=== PATIENT | female | born 1940 | race Caucasian/White ===

== ENCOUNTER 2019-08-13 13:37 | Outpatient (CLI) | payer MEDICARE, SELFPAY ==
--- NOTE | ~2019-08-13 | MM_ITS ---
EXAMINATION: MM screening [facility] BI w fco HISTORY: Screening mammogram TECHNIQUE: Craniocaudal and mediolateral oblique 3-D tomosynthesis images were obtained and synthetic 2-D images were generated. CAD analysis was submitted and interpreted. COMPARISON: 08/06/2018, 07/25/2017, 08/01/2016 BREAST PARENCHYMAL COMPOSITION: There are scattered areas of fibroglandular density. FINDINGS: There is no evidence of suspicious mass, calcification, or architectural distortion to sugg est malignancy in either breast. There has been no suspicious interval change. IMPRESSION: 1. No mammographic evidence of malignancy. 2. Recommend routine screening mammography while the patient remains in good health. BI-RADS Category 1: Negative Reviewed, dictated and finalized at location A. IMPRESSION: 1. No mammographic evidence of malignancy. 2. Recommend routine screening mammography while the patient remains in good he alth. BI-RADS Category 1: Negative
== END 2019-08-13 13:38 | disposition home or self-care (01) ==
LOC: ANHIMG 13:42
PROVIDERS: PCP Family Medicine; Visit Provider Family Medicine
DX: Z12.31 Encounter for screening mammogram for malignant neoplasm of breast (principal)
CPT/HCPCS: 77063; 77067

== ENCOUNTER 2020-05-05 07:24 | Outpatient (CLI) | payer MEDICARE, SELFPAY ==
--- NOTE | ~2020-05-05 | CT_ITS ---
EXAMINATION: CT chest abdomen pelvis w con EXAM DATE: 05/05/2020 08:01 INDICATION: Follicular lymphoma grade 3. TECHNIQUE: Spiral CT of the chest, abdomen and pelvis was performed following intravenous injection o f 100 mL Omnipaque 350. Axial, coronal and sagittal images were reviewed. Coronal maximum intensity pixel images of chest reviewed. The dose-length product (DLP) for this examination was 361.63 mGy-c m. The exposure was tailored according to patient size (auto mA exposure control), and iterative rec onstruction (ASIR) was used as additional dose reduction technique. Comparison is made to prior exami nation from 06/12/2019. FINDINGS: CHEST: There is no pleural-based left lower lobe nodule on image 56 measuring 3 x 6 mm. There are n o pleural or pericardial effusions. Tracheobronchial tree is patent. There is no mediastinal, hil ar or axillary lymphadenopathy. There is no pneumothorax. Heart normal in size. No evidence of coronary arterial calcification. There is a right-sided Chemo-Port. No central pulmonary emboli. ABDOMEN PELVIS: Ill-defined fat planes in the retroperitoneum, consistent with treated lymphoma. This appears unchanged compared to prior study. No retroperitoneal or pelvic lymphadenopathy. The liver, spleen, adrenal glands and pancreas are unremarkable. There are cholecystectomy clips. Portal and splenic veins are patent. Kidneys enhance symmetrically. Punctate left nephrolithiasis. There is no hydronephrosis. The uterus is unremarkable. The bladder is unremarkable. The appendix is not positively visualized. There is no pericecal inflammatory change to suggest appe ndicitis. The stomach and small bowel are unremarkable. There is expected amount of colonic stool. No free intraperitoneal gas. There are no osteoblastic or osteolytic lesions identified. IMPRESSION: 1. New pleural-based left lower lobe nodule. Attention to this on patient's follow-up for lymphoma a nd 6-12 months. 2. Stable retroperitoneal ill-defined soft tissue density consistent with treated lymphoma. 3. Punctate left nephrolithiasis. Reviewed, dictated and finalized at location A. O HANDLER IMPRESSION: 1. New pleural-based left lower lobe nodule. Attention to this on patient's fo llow-up for lymphoma and 6-12 months. 2. 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 3. Punctate left nephrolithiasis.
[2020-05-05 07:56] LABS: Estimated Glomerular Filt Rate 48
== END 2020-05-05 07:25 | disposition home or self-care (01) ==
LOC: ANHIMG 07:27
PROVIDERS: PCP Family Medicine; Visit Provider Internal Medicine Hematology & Oncology
DX: C82.23 Follicular lymphoma grade III, unspecified, intra-abdominal lymph nodes (principal); C82.22 Follicular lymphoma grade III, unspecified, intrathoracic lymph nodes; N20.0 Calculus of kidney
CPT/HCPCS: 36415; 71260; 74177; 80053; 83615; 85025; Q9967

== ENCOUNTER 2020-08-14 14:20 | Outpatient (CLI) | payer MEDICARE, SELFPAY ==
--- NOTE | ~2020-08-14 | MM_ITS ---
EXAMINATION: MM screening [facility] BI w fco HISTORY: Screening mammogram TECHNIQUE: Craniocaudal and mediolateral oblique 3-D tomosynthesis images were obtained and synthetic 2-D images were generated. CAD analysis was submitted and interpreted. COMPARISON: 08/13/2019, 08/2018, 08/02/2017 bilateral digital screening mammogram examinations BREAST PARENCHYMAL COMPOSITION: There are scattered areas of fibroglandular density. FINDINGS: Possible spiculated opacity in the upper outer right breast (MLO Tomosynthesis image 19/61) . Diagnostic right mammogram and right breast ultrasound examination are recommended. There is a biopsy marker adjacent to an approximately 4.5 mm opacity in the posterior lower outer lef t breast; history of benign biopsy. Otherwise there is is no evidence of suspicious mass, calcification, or architectural distortion to s uggest malignancy in either breast. There has been no other suspicious interval change. IMPRESSION: 1. Possible spiculated opacity, upper outer right breast 2. Diagnostic right mammogram and right breast ultrasound examination are recommended. BI-RADS Category 0: Incomplete: Needs additional imaging evaluation. Reviewed, dictated and finalized at location A. ER TENDER IMPRESSION: 1. Possible spiculated opacity, upper outer right breast 2. Diagnostic right mammogram and right breast ultrasound examination are recom mended. BI-RADS Category 0: Incomplete: Needs additional imaging evaluation.
== END 2020-08-14 14:21 | disposition home or self-care (01) ==
LOC: ANHIMG 14:22
PROVIDERS: PCP Family Medicine; Visit Provider Physician Assistant
DX: Z12.31 Encounter for screening mammogram for malignant neoplasm of breast (principal); R92.8 Other abnormal and inconclusive findings on diagnostic imaging of breast
CPT/HCPCS: 77063; 77067

== ENCOUNTER 2020-09-07 13:21 | Outpatient (CLI) | payer MEDICARE, SELFPAY ==
--- NOTE | ~2020-09-07 | MMUS_ITS ---
EXAMINATION: MM diagnostic mammo unilat RT, US breast RT limited HISTORY: Possible spiculated opacity reported in upper outer right breast on 08/14/2020 screening mamm ogram TECHNIQUE: Additional 3-D tomosynthesis images of the right breast were performed and synthetic 2-D i mages were generated. Rolled medial and rolled lateral craniocaudal views. CAD analysis was submitted and interpreted. High resolution right upper outer and lower-outer breast ultrasound was performed. COMPARISON: 08/14/2020 bilateral digital screening mammogram FINDINGS: MAMMOGRAPHIC FINDINGS: No suspicious mass, architectural distortion, malignant calcification, skin thickening or retraction is detected. ULTRASOUND: No suspicious mass or shadowing is detected. No cyst is identified. No other significant sonographic finding. IMPRESSION: 1. No mammographic evidence of malignancy 2. Routine annual mammographic screening is recommended. BI-RADS Category 1: Negative Reviewed, dictated and finalized at location A. IMPRESSION: 1. No mammographic evidence of malignancy 2. Routine annual mammographic screening is recommended. BI-RADS Category 1: Negative
== END 2020-09-07 13:22 | disposition home or self-care (01) ==
LOC: ANHIMG 13:23
PROVIDERS: PCP Family Medicine; Visit Provider Physician Assistant
DX: R92.8 Other abnormal and inconclusive findings on diagnostic imaging of breast (principal)
CPT/HCPCS: 76642; 77065

== ENCOUNTER 2020-11-11 07:26 | Outpatient (CLI) | payer MEDICARE, SELFPAY ==
--- NOTE | ~2020-11-11 | CT_ITS ---
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 Axial, coronal and sagittal images chest, abdomen and pelvis were reviewed. Coronal maximum intensity pixel images of chest reviewed. The dose-length product (DLP) for this ex amination was 437.48 mGy-cm. The exposure was tailored according to patient size (auto mA exposure c ontrol), and iterative reconstruction (ASIR) was used as additional dose reduction technique. Compari son is made to prior examination from 05/05/2020. FINDINGS: CHEST: Resolution of previously seen left lower lobe pleural-based nodular opacity. Mild emphysema. There are no pleural or pericardial effusions. Tracheobronchial tree is patent. There is no medi astinal, hilar or axillary lymphadenopathy. There is no pneumothorax. Heart normal in size. No evidence of coronary arterial calcification. There is a right-sided Chemo-Port. No central pulmonary emboli. ABDOMEN PELVIS: Ill-defined fat planes in the retroperitoneum, consistent with treated lymphoma. Incr eased number of visible but normal-sized mesenteric lymph nodes. These findings appear unchanged comp ared to prior study. No enlarged abdominal or pelvic lymphadenopathy. The liver, spleen, adrenal glands and pancreas are unremarkable. There are cholecystectomy clips. P ortal and splenic veins are patent. Kidneys enhance symmetrically. Punctate left nephrolithiasis. Th ere is no hydronephrosis. The uterus is unremarkable. The bladder is unremarkable. The appendix is not positively visualized. There is no pericecal inflammatory change to suggest appe ndicitis. The stomach and small bowel are unremarkable. There is expected amount of colonic stool. No free intraperitoneal gas. There are no osteoblastic or osteolytic lesions identified. IMPRESSION: 1. Resolution of pleural-based nodule previously seen. 2. Stable retroperitoneal ill-defined soft tissue density and small mesenteric lymph nodes consisten t with treated lymphoma. 3. Punctate left nephrolithiasis. Reviewed, dictated and finalized at location A. IMPRESSION: 1. Resolution of pleural-based nodule previously seen. 2. Stable retroperitoneal ill-defined soft tissue density and small mesenteric lymph nodes consistent with treated lymphoma. 3. Punctate left nephrolithiasis.
[2020-11-11 08:02] LABS: Estimated Glomerular Filt Rate 43
== END 2020-11-11 07:27 | disposition home or self-care (01) ==
PROVIDERS: PCP Family Medicine; Visit Provider Nurse Practitioner Adult Health
DX: C82.83 Other types of follicular lymphoma, intra-abdominal lymph nodes (principal); N20.0 Calculus of kidney
CPT/HCPCS: 36415; 71260; 74177; 83615; 85025; Q9967

== ENCOUNTER 2020-12-03 07:51 | Outpatient (CLI) | payer MEDICARE, SELFPAY ==
[2020-12-03 08:33] LABS: Anion Gap 8 mmol/L (8-16); Blood Urea Nitrogen 27 mg/dL (7-17); Calcium 9.5 mg/dL (8.4-10.2); Carbon Dioxide 28 mmol/L (22-30); Chloride 104 mmol/L (98-107); Estimated Glomerular Filt Rate 48; Glucose 95 mg/dL (65-105); Potassium 4.1 mmol/L (3.4-5.0); Sodium 140 mmol/L (137-145)
== END 2020-12-03 07:52 | disposition home or self-care (01) ==
PROVIDERS: Anesthesiology; PCP Family Medicine; Visit Provider Surgery
DX: Z01.818 Encounter for other preprocedural examination (principal); I10 Essential (primary) hypertension
CPT/HCPCS: 36415; 80048

== ENCOUNTER 2020-12-10 01:43 | Day surgery (SDC) | payer MEDICARE, SELFPAY ==
[2020-12-02 11:08] VITALS: BMI 22.1
[2020-12-10 12:05] VITALS: BP 126/73; PULSE 74; RESP 18; TEMP 36.2; O2SAT 100; BMI 22.3
--- NOTE | 2020-12-10 12:16 | WPDANESEPPF ---
Anes - Initial Pre Proc Eval Procedure: Operation Date: 12/10/20 13:00 Proposed Procedures p Removal Taylor Cath - Marycarmen Iyer MD Date/Time: 12/10/20 12:16 Surgeon: Marycarmen Iyer MD Pre Op Diagnosis: hx of lymphoma Patient Data Age: 80 Gender: F Height: 1.75 m Weight: 68.6 kg Last Vital Signs Temp 97.1 F L 12/10/20 12:05 Pulse 74 12/10/20 12:05 Resp 18 12/10/20 12:05 BP 126/73 12/10/20 12:05 Pulse Ox 100 12/10/20 12:05 Allergies Allergy/AdvReac Type Severity Reaction Status Date / Time aspirin Allergy Unknown low Verified 12/10/20 12:08 platelets Cephalosporins AdvReac Mild SEVERE Verified 12/10/20 12:08 DIARRHEA cefixime AdvReac Unknown Nausea Verified 12/10/20 12:08 Home Medications Medication Instructions Recorded Confirmed Type calcium carbonate-vitamin D3 1 tablet PO DAILY 03/26/19 12/10/20 History [Calcium 600 + D(3)] amitriptyline 25 mg tablet 25 mg PO HS #90 tablet 12/20/19 12/10/20 Rx alprazolam 0.25 mg tablet 0.25 mg PO TID PRN #90 tablet 07/29/20 12/10/20 Rx hydrochlorothiazide 12.5 mg tablet See Rx Instructions .ROUTE 10/06/20 12/10/20 Rx .COMPLEX #90 tablet fluticasone propionate 50 2 spray NASAL DAILY #15.8 ml 10/14/20 12/10/20 Rx mcg/actuation nasal spray,suspension lisinopril 20 mg tablet 10 mg PO DAILY #0 tablet 11/23/20 12/10/20 Rx ascorbic acid (vitamin C) 250 mg PO DAILY 12/02/20 12/10/20 History benzonatate 200 mg PO HS 12/02/20 12/10/20 History famotidine 40 mg PO DAILY 12/02/20 12/10/20 History Patient hx anesthesia problems: none Family hx anesthesia problems: none PMFSH Past Medical History Medical History (Updated 12/09/20 @ 10:36 by Hussain Escudero DO) Essential hypertension, benign Unspecified B-cell lymphoma, intra-abdominal lymph nodes 2018 Wears hearing aid Family History Family History Mother Cerebrovascular accident, Onset Age: 86 Father Family history of lung cancer, Onset Age: 65 Family history of coronary artery disease Other Family history of tuberculosis Hypertension Social History Social History Smoking status: Never smoker Alcohol intake: never Living arrangements: with friend(s) Spiritual care concerns: No Anes - Eval Final PreProcedure Day of Procedure 12/10/20 12:16 Patient weight: normal Heart: regular rate and rhythm Lungs: clear to auscultation Airway: Mallampati scale class II Neurological: alert and oriented Last oral intake: >/= 8 hours ASA classification: III Emergent: no Anesthetic plan: proceed Anesthesia type and monitoring: general GIVS and standard monitoring Informed Consent: The patient's anesthetic plan and its attendant risks and benefits were discussed with the patient/family/POA. Questions were solicited and answers provided to the satisfaction of the patient/family/POA.
[2020-12-10] MEDS: LACTATED RINGERS 1,000 ML 30 ML IV CONT (12:28)
--- NOTE | 2020-12-10 13:14 | PM.IMHP ---
H&P: HPI History of Present Illness Date/Time: 12/10/20 13:14 Pt is a 80 y/o F s/p treatment for lymphoma. Pt had R SCV VAD placed by Dr. Mckeon in 10/20. Pt reports last chemo treatment was in 04/22. Pt reports no issues c VAD. Pt has had flush every 2 mos s issue. Chief Complaint: lymphoma Review of Systems Review of Systems: All systems reviewed & are unremarkable except as noted in HPI and below PMFSH Past Medical History Medical History Essential hypertension, benign Unspecified B-cell lymphoma, intra-abdominal lymph nodes 2018 Wears hearing aid Family History Family History Mother Cerebrovascular accident, Onset Age: 86 Father Family history of lung cancer, Onset Age: 65 Family history of coronary artery disease Other Family history of tuberculosis Hypertension Social History Social History Smoking status: Never smoker Alcohol intake: never Living arrangements: with friend(s) Spiritual care concerns: No Meds Home Medications and Allergies Home Medications Medication Instructions Recorded Confirmed Type calcium carbonate-vitamin D3 1 tablet PO DAILY 03/26/19 12/10/20 History [Calcium 600 + D(3)] amitriptyline 25 mg tablet 25 mg PO HS #90 tablet 12/20/19 12/10/20 Rx alprazolam 0.25 mg tablet 0.25 mg PO TID PRN #90 tablet 07/29/20 12/10/20 Rx hydrochlorothiazide 12.5 mg tablet See Rx Instructions .ROUTE 10/06/20 12/10/20 Rx .COMPLEX #90 tablet fluticasone propionate 50 2 spray NASAL DAILY #15.8 ml 10/14/20 12/10/20 Rx mcg/actuation nasal spray,suspension lisinopril 20 mg tablet 10 mg PO DAILY #0 tablet 11/23/20 12/10/20 Rx ascorbic acid (vitamin C) 250 mg PO DAILY 12/02/20 12/10/20 History benzonatate 200 mg PO HS 12/02/20 12/10/20 History famotidine 40 mg PO DAILY 12/02/20 12/10/20 History Allergies Allergy/AdvReac Type Severity Reaction Status Date / Time aspirin Allergy Unknown low Verified 12/10/20 12:08 platelets Cephalosporins AdvReac Mild SEVERE Verified 12/10/20 12:08 DIARRHEA cefixime AdvReac Unknown Nausea Verified 12/10/20 12:08 Vital Signs Vital Signs - 24 hr 12/10/20 12:05 Temperature 36.2 C L Pulse Rate 74 Respiratory Rate 18 Blood Pressure 126/73 Pulse Oximetry 100 Exam Const: General: cooperative, comfortable and no acute distress Nutritional Appearance: average body habitus Orientation/consciousness: patient oriented x3 Limitations: no limitations Chest: Other: R SCV VAD - C/D/I Resp: Effort & Inspection: normal respiratory effort Auscultation: clear to auscultation bilaterally Cardio: Rate: regular rate Rhythm: regular rhythm Assessment and Plan Assessment and plan (1) Unspecified B-cell lymphoma, intra-abdominal lymph nodes: Code(s): C85.13 - Unspecified B-cell lymphoma, intra-abdominal lymph nodes Status: Acute Assessment and Plan: s/p chemo and clearance by oncology, will remove VAD
--- NOTE | 2020-12-10 13:17 | WPDHPUPDATE1 ---
History and Physical Update Update Date/Time: 12/10/20 13:17 History and Physical has been reviewed, including an updated exam of the patient. There are NO changes in the patient's condition. Risks, benefits, and alternatives have been discussed and questions answered. Patient agrees to proceed with procedure.
[2020-12-10] MEDS: ceFAZolin 2 GM/D5W 50 ML 2 GM/50 ML BAG IVPB (13:21)
[2020-12-10] MEDS: BUPIVACAINE/EPINEPHRINE 0.5% 10 ML VIAL 9 ML INFILTRATE (13:45)
[2020-12-10 13:53] VITALS: BP 123/67; PULSE 62; RESP 14; O2SAT 98
--- NOTE | 2020-12-10 13:56 | P.OP_ITS ---
Procedure Note - Detailed Date of Procedure 12/10/20 Pre-op Diagnosis hx of lymphoma Post-op Diagnosis same Procedure Performed Removal right subclavian venous access device Surgeon Marycarmen Iyer MD Anesthesia MAC and local Indications 80 y/o F c h/o lymphoma s/p treatment. Findings R SCV VAD Description of Procedure The patient was taken to the operating room placed in the supine position. After adequate induction of MAC anesthesia, the patient was prepped and draped in the normal sterile fashion. A time-out was then done to verify the patient's identity, as well as the procedure being performed. I began by localizing the previous incision line in the right chest and around the port itself. Once this was done, I made an incision through the old incision to the level of the port. I then bluntly dissected around the port, and located the 2 sutures holding the port in place. I then cut the 2 sutures and removed the port from the pocket. I was then able to remove the port and catheter in full. The catheter was noted in the right subclavian vein. I then held pressure at the level of the right subclavian vein for approximately 5 minutes. Hemostasis was noted after pressure was held. I then localized the pocket further and closed the subcutaneous tissue with 3 0 Vicryl suture. I then closed the skin with 4 O Monocryl subcuticular suture. Dermabond was then placed on the wound. The p atient tolerated the procedure well, was alert and awake in the operating room postoperatively, and will be transferred to the recovery in stable condition. Estimated Blood Loss 5 Drains No Packing No Pathology none sent Complications No immediate complications Condition stable Disposition PACU
[2020-12-10 14:20] VITALS: BP 131/68; PULSE 47
== END 2020-12-10 14:45 | disposition home or self-care (01) ==
PROVIDERS: PCP Family Medicine; Visit Provider Surgery
PROC: (CPT 36589; principal; 2020-12-10 13:00)
DX: Z45.2 Encounter for adjustment and management of vascular access device (principal); Z85.72 Personal history of non-Hodgkin lymphomas; I10 Essential (primary) hypertension
CPT/HCPCS: 36590; 36415; 80048; J0690; J2405; J2704; J3010; J7120

== ENCOUNTER 2021-02-25 12:38 | Outpatient (CLI) | payer MEDICARE, SELFPAY ==
--- NOTE | ~2021-02-25 | DEXA_ITS ---
Bone Density Report Name: Mana Singleton Age: 80 Sex: Female Ethnicity: White Date of : 1940 Indication: osteopenia; height loss; cancer; postmenopausal Referring Provider: Natasha Rosenberg Study: Bone densitometry was performed. Exam Date: February 25, 2021 Accession number: [id number] Bone Density: Region BMD T-score Z-score Classification AP Spine (L1, L4) 1.217 1.6 4.4 Normal Femoral Neck (Left) 0.740 -1.0 1.4 Normal Total Hip (Left) 0.803 -1.1 1.0 Osteopenia Total Hip Bilateral Avg 0.769 -1.4 0.8 Osteopenia Femoral Neck (Right) 0.663 -1.7 0.7 Osteopenia Total Hip (Right) 0.735 -1.7 0.5 Osteopenia World Health Organization criteria for BMD impression classify patients as: Normal (T-score at or above -1.0), Osteopenia (T-score between -1.0 and -2.5), or Osteoporosis (T-score at or below -2.5). 10-year Fracture Risk(1): Major Osteoporotic Fracture 14% Hip Fracture 3.7% Reported Risk Factors: [place] (), Neck BMD=0.663, BMI=23.5 (1) FRAX(R) Version 3.08. Fracture probability calculated for an untreated patient. Fracture probability may be lower if the patient has received treatment. Previous Exams: Region Exam Age BMD T-score BMD Change BMD Change Date g/cm2 vs Baseline vs Previous AP Spine(L1, L4) 02/25/2021 80 1.217 1.6 -0.210(-14.7%) -0.094(-7.1%)* 03/16/2017 76 1.310 2.5 -0.117(-8.2%)# 0.005(0.4%) 03/09/2015 74 1.305 2.4 -0.122(-8.6%)# 0.046(3.6%)# 08/08/2012 71 1.259 2.0 -0.168(-11.8%) -0.067(-5.1%)# 07/02/2010 69 1.327 2.6 -0.101(-7.1%)* -0.020(-1.5%) 09/18/2003 62 1.347 2.8 -0.081(-5.7%)* -0.081(-5.7%)* 06/26/2001 60 1.427 3.5 Total Hip(Left) 02/25/2021 80 0.803 -1.1 -0.166(-17.1%) -0.036(-4.3%)* 03/16/2017 76 0.839 -0.8 -0.130(-13.4%) 0.020(2.4%) 03/09/2015 74 0.819 -1.0 -0.150(-15.5%) 0.013(1.6%)# 08/08/2012 71 0.806 -1.1 -0.163(-16.8%) -0.008(-1.0%)# 07/02/2010 69 0.814 -1.0 -0.155(-16.0%) -0.139(-14.6%) 09/18/2003 62 0.953 0.1 -0.016(-1.6%) -0.016(-1.6%) 06/26/2001 60 0.969 0.2 Total Hip(Right) 02/25/2021 80 0.735 -1.7 -0.196(-21.0%) -0.026(-3.5%) 03/16/2017 76 0.761 -1.5 -0.169(-18.2%) -0.036(-4.6%)* 03/09/2015 74 0.798 -1.2 -0.133(-14.3%) 0.013(1.6%)# 08/08/2012 71 0.785 -1.3 -0.146(-15.7%) -0.020(-2.5%)# 07/02/2010 69 0.805 -1.1 -0.125(-13.5%) -0.116(-12.6%) 09/18/2003 62 0.921 -0.2 -0.010(-1.0%) -0.010(-1.0%) 06/26/2001 60 0.931 -0.1 *Denotes significance at
== END 2021-02-25 12:39 | disposition home or self-care (01) ==
PROVIDERS: PCP Family Medicine; Visit Provider Physician Assistant
DX: Z78.0 Asymptomatic menopausal state (principal); M85.89 Other specified disorders of bone density and structure, multiple sites
CPT/HCPCS: 77080

== ENCOUNTER 2021-05-11 07:04 | Outpatient (CLI) | payer MEDICARE, SELFPAY ==
[2021-05-11 08:09] LABS: Cholesterol 178 mg/dL (0-200); HDL Direct 73 mg/dL; Triglycerides 104 mg/dL (<150)
[2021-05-11 08:20] LABS: LDL Cholesterol Direct 63 mg/dL
[2021-05-11 11:31] LABS: Free T4 Free Thyroxine Reflex 1.02 ng/dL (0.78-2.19)
== END 2021-05-11 07:05 | disposition home or self-care (01) ==
PROVIDERS: PCP Family Medicine; Visit Provider Physician Assistant
DX: Z51.81 Encounter for therapeutic drug level monitoring (principal); Z79.899 Other long term (current) drug therapy; Z00.00 Encounter for general adult medical examination without abnormal findings
CPT/HCPCS: 36415; 80061; 84439; 84443; 84480

== ENCOUNTER 2021-07-21 10:11 | Outpatient (CLI) | payer MEDICARE, SELFPAY | END 2021-07-21 10:12 | disposition home or self-care (01) | PROVIDERS: PCP Family Medicine; Visit Provider Physician Assistant | DX: E03.8 Other specified hypothyroidism (principal); R79.89 Other specified abnormal findings of blood chemistry | CPT/HCPCS: 36415; 84443 ==

== ENCOUNTER 2021-09-22 11:41 | Outpatient (CLI) | payer MEDICARE, SELFPAY ==
--- NOTE | ~2021-09-22 | MM_ITS ---
EXAMINATION: MM screening [facility] BI w fco HISTORY: Screening mammogram TECHNIQUE: Craniocaudal and mediolateral oblique 3-D tomosynthesis images were obtained and synthetic 2-D images were generated. CAD analysis was submitted and interpreted. COMPARISON: 09/08/2019 diagnostic right mammogram and right breast Limited ultrasound 08/14/2020, 08/13/2019, 08/2018 bilateral screening mammogram examinations BREAST PARENCHYMAL COMPOSITION: There are scattered areas of fibroglandular density. FINDINGS: There is a biopsy marker on the left; history of previous benign left breast biopsy. No The re is no evidence of suspicious mass, calcification, or architectural distortion to suggest malignanc y in either breast. There has been no suspicious interval change. IMPRESSION: 1. No mammographic evidence of malignancy. 2. Recommend routine screening mammography in one year. BI-RADS Category 1: Negative Reviewed, dictated and finalized at location A.
== END 2021-09-22 11:42 | disposition home or self-care (01) ==
LOC: ANHIMG 11:42
PROVIDERS: PCP Family Medicine; Visit Provider Physician Assistant Medical
DX: Z12.31 Encounter for screening mammogram for malignant neoplasm of breast (principal)
CPT/HCPCS: 77063; 77067

== ENCOUNTER 2021-11-04 07:23 | Outpatient (CLI) | payer MEDICARE, SELFPAY ==
[2021-11-04 08:36] LABS: Alanine Aminotransferase 14 U/L (6-35); Albumin Level 4.2 g/dL (3.5-5.1); Alkaline Phosphatase 46 U/L (38-126); Anion Gap 4 mmol/L (8-16); Aspartate Amino Transferase 24 U/L (14-36); Bilirubin,Total 0.5 mg/dL (0.2-1.3); Blood Urea Nitrogen 18 mg/dL (7-17); Carbon Dioxide 31 mmol/L (22-30); Chloride 104 mmol/L (98-107); Cholesterol 172 mg/dL (0-200); Estimated Glomerular Filt Rate 53; Glucose 95 mg/dL (65-110); HDL Direct 59 mg/dL; Potassium 4.1 mmol/L (3.4-5.0); Sodium 139 mmol/L (137-145); Triglycerides 138 mg/dL (<150)
[2021-11-04 08:46] LABS: LDL Cholesterol Direct 56 mg/dL
[2021-11-04 13:08] LABS: Free T4 Free Thyroxine Reflex 1.04 ng/dL (0.78-2.19)
[2021-11-04 14:06] LABS: Total Triiodothyronine (T3) 1.42 NG/ML (0.97-1.69)
== END 2021-11-04 07:24 | disposition home or self-care (01) ==
LOC: ANHLAB 07:25
PROVIDERS: PCP Family Medicine; Visit Provider Physician Assistant
DX: E03.8 Other specified hypothyroidism (principal); Z79.899 Other long term (current) drug therapy
CPT/HCPCS: 36415; 80053; 80061; 84439; 84443; 84480

== ENCOUNTER 2022-09-19 07:14 | Outpatient (CLI) | payer MEDICARE, SELFPAY ==
[2022-09-19 07:39] LABS: Basophils Percent Auto 0.9 % (0.2-1.2); Eosinophils Absolute Auto 0.2 K/mm3 (0-0.3); Eosinophils Percent Auto 5.5 % (0-4.4); Hematocrit 36.6 % (37.0-47.0); Immature Granulocyte Absolute 0.01 K/mm3 (0.00-0.031); Immature Granulocyte Percent A 0.3 % (0-0.5); Lymphocytes Absolute Auto 0.79 K/mm3 (0.9-3.2); Mean Corpuscular HGB Conc 32.8 g/dl (32-36); Mean Corpuscular Hemoglobin 31.4 pg (26-34); Mean Corpuscular Volume 95.8 fl (80-100); Mean Platelet Volume 9.3 fl (7.4-10.4); Monocytes Absolute Auto 0.3 K/mm3 (0.1-0.6); Monocytes Percent Auto 8.2 % (2.6-8.5); Neutrophils Absolute Auto 2.1 K/mm3 (1.3-6.7); Neutrophils Percent Auto 62.1 % (45.5-73.1); Platelet Count Result 141 k/mm3 (150-375); Red Blood Count 3.82 M/mm3 (4.2-5.4); Red Cell Distribution Width 13.3 % (11.5-14.5); White Blood Count 3.4 K/mm3 (4.5-10.0)
[2022-09-19 07:56] LABS: Alanine Aminotransferase 19 U/L (6-35); Albumin Level 4.7 g/dL (3.5-5.1); Alkaline Phosphatase 55 U/L (38-126); Anion Gap 6 mmol/L (8-16); Aspartate Amino Transferase 23 U/L (14-36); Bilirubin,Total 0.8 mg/dL (0.2-1.3); Blood Urea Nitrogen 24 mg/dL (7-17); Calcium 9.3 mg/dL (8.4-10.2); Carbon Dioxide 33 mmol/L (22-30); Chloride 101 mmol/L (98-107); Cholesterol 163 mg/dL (0-200); Estimated Glomerular Filt Rate 53; Glucose 105 mg/dL (65-110); HDL Direct 63 mg/dL; Potassium 4.3 mmol/L (3.4-5.0); Sodium 140 mmol/L (137-145); Triglycerides 83 mg/dL (<150)
[2022-09-19 08:07] LABS: LDL Cholesterol Direct 64 mg/dL
[2022-09-19 09:01] LABS: Folic Acid 12.8 ng/mL (2.76->20)
[2022-09-19 10:11] LABS: Vitamin D 25 Hydroxy 39.2 ng/mL
== END 2022-09-19 07:15 | disposition home or self-care (01) ==
PROVIDERS: PCP Family Medicine; Visit Provider Physician Assistant
DX: K21.9 Gastro-esophageal reflux disease without esophagitis (principal); I10 Essential (primary) hypertension; Z79.899 Other long term (current) drug therapy
CPT/HCPCS: 36415; 80053; 80061; 82306; 82607; 82746; 84443; 85025

== ENCOUNTER 2022-10-19 13:38 | Outpatient (CLI) | payer MEDICARE, SELFPAY ==
--- NOTE | ~2022-10-19 | MM_ITS ---
EXAMINATION: MM screening jaylin BI w fco HISTORY: Screening mammogram TECHNIQUE: Craniocaudal and mediolateral oblique 3-D tomosynthesis images were obtained and synthetic 2-D images were generated. CAD analysis was submitted and interpreted. COMPARISON: 09/22/2021, 09/07/2020, 08/14/2020, 04/14/2020 BREAST PARENCHYMAL COMPOSITION: There are scattered areas of fibroglandular density. FINDINGS: No suspicious mass, calcification, or architectural distortion are identified in either lu ast to suggest malignancy. There has been no suspicious interval change. IMPRESSION: 1. No mammographic evidence of malignancy. 2. Recommend routine screening mammography while the patient remains in good health. BI-RADS Category 1: Negative Reviewed, dictated and finalized at location A. IMPRESSION: 1. No mammographic evidence of malignancy. 2. Recommend routine screening mammography while the patient remains in good he alth. BI-RADS Category 1: Negative
== END 2022-10-19 13:39 | disposition home or self-care (01) ==
LOC: ANHIMG 13:39
PROVIDERS: PCP Family Medicine; Visit Provider Family Medicine
DX: Z12.31 Encounter for screening mammogram for malignant neoplasm of breast (principal)
CPT/HCPCS: 77063; 77067

== ENCOUNTER 2023-08-01 14:23 | Outpatient (CLI) | payer MEDICARE, SELFPAY ==
--- NOTE | ~2023-08-01 | DEXA_ITS ---
Bone Density Report Name: CADEN YANCEY Age: 82 Sex: Female Ethnicity: White Date of : 1940 Indication: osteopenia; height loss; cancer; postmenopausal Referring Provider: WENDY MAGUIRE Study: Bone densitometry was performed. Exam Date: August 01, 2023 Accession number: [id number] Bone Density: Region BMD T-score Z-score Classification AP Spine(L1-L4) 1.371 2.9 5.8 Normal Femoral Neck (Left) 0.721 -1.2 1.4 Osteopenia Total Hip (Left) 0.793 -1.2 1.1 Osteopenia Femoral Neck (Right) 0.647 -1.8 0.7 Osteopenia Total Hip (Right) 0.749 -1.6 0.7 Osteopenia Total Hip Mean 0.771 -1.4 0.9 Osteopenia World Health Organization criteria for BMD impression classify patients as: Normal (T-score at or above -1.0), Osteopenia (T-score between -1.0 and -2.5), or Osteoporosis (T-score at or below -2.5). 10-year Fracture Risk(1): Major Osteoporotic Fracture 15% Hip Fracture 4.4% Reported Risk Factors: [place] (), Neck BMD=0.647, BMI=23.6 (1) FRAX(R) Version 3.08. Fracture probability calculated for an untreated patient. Fracture probability may be lower if the patient has received treatment. Previous Exams: Region Exam Age BMD T-score BMD Change BMD Change Date g/cm2 vs Baseline vs Previous AP Spine (L1-L4) 08/01/2023 82 1.371 2.9 0.085 (6.6%)# 0.015 (1.1%) 03/16/2017 76 1.356 2.8 0.070 (5.4%)# 0.016 (1.2%) 03/09/2015 74 1.340 2.7 0.054 (4.2%)# 0.054 (4.2%)# 08/08/2012 71 1.287 2.2 Total Hip(Left) 08/01/2023 82 0.793 -1.2 -0.013 (-1.6%) -0.010 (-1.2%) 02/25/2021 80 0.803 -1.1 -0.003 (-0.3%) -0.036 (-4.3%) 03/16/2017 76 0.839 -0.8 0.033 (4.1%)# 0.020 (2.4%) 03/09/2015 74 0.819 -1.0 0.013 (1.6%)# 0.013 (1.6%)# 08/08/2012 71 0.806 -1.1 Total Hip(Right) 08/01/2023 82 0.749 -1.6 -0.036 (-4.5%) 0.014 (1.9%) 02/25/2021 80 0.735 -1.7 -0.050 (-6.4%) -0.026 (-3.5%) 03/16/2017 76 0.761 -1.5 -0.023 (-3.0%) -0.036 (-4.6%) 03/09/2015 74 0.798 -1.2 0.013 (1.6%)# 0.013 (1.6%)# 08/08/2012 71 0.785 -1.3 *Denotes significance at 95% confidence level, LSC for AP Spine = 0.022 g/cm2, LSC for Total Hip = 0.027 g/cm2 # Denotes dissimilar scan types or analysis methods Clinical Information Provided by Patient: Has used the following medications: Vitamin D, Calcium Has the following medical conditions: Cancer Patient maximum height was 69 Menopause Age: 50 Drinks caffeinated beverages O
== END 2023-08-01 14:24 | disposition home or self-care (01) ==
PROVIDERS: PCP Family Medicine; Visit Provider Family Medicine
DX: M85.89 Other specified disorders of bone density and structure, multiple sites (principal); C85.13 Unspecified B-cell lymphoma, intra-abdominal lymph nodes; Z78.0 Asymptomatic menopausal state
CPT/HCPCS: 77080

== ENCOUNTER 2023-10-23 13:44 | Outpatient (CLI) | payer MEDICARE, SELFPAY ==
--- NOTE | ~2023-10-23 | MM_ITS ---
EXAMINATION: MM screening jaylin BI w fco HISTORY: Screening TECHNIQUE: Craniocaudal and mediolateral oblique 3-D tomosynthesis images were obtained and synthetic 2-D images were generated. CAD analysis was submitted and interpreted. COMPARISON: Comparison to multiple prior studies sequentially, with oldest reviewed study dated 09/2018. BREAST PARENCHYMAL COMPOSITION: Not dense: There are scattered areas of fibroglandular density. FINDINGS: There is no evidence of suspicious mass, calcification, or architectural distortion to sugg est malignancy in either breast. There has been no suspicious interval change. IMPRESSION: 1. No mammographic evidence of malignancy. 2. Recommend routine screening mammography in one year. BI-RADS Category 1: Negative Reviewed, dictated and finalized at location A.
== END 2023-10-23 13:45 | disposition home or self-care (01) ==
LOC: ANHIMG 13:46
PROVIDERS: PCP Family Medicine; Visit Provider Family Medicine
DX: Z12.31 Encounter for screening mammogram for malignant neoplasm of breast (principal)
CPT/HCPCS: 77063; 77067

== ENCOUNTER 2024-07-18 12:58 | Outpatient (CLI) | payer MEDICARE, SELFPAY ==
--- OUTSIDE RECORDS SUMMARY | 2024-07-18 13:04 | XMS_ITS | Patient Health Summary ---
Author Organization [facility] Address [address] [place] [address] Care Team Providers Care Product Manager Name Role Phone Unavailable Primary Care Provider Unavailabl e Note from [facility],non-owned Affiliates and Associated Physician Practices is amultiple site organization consisting of ambulatory clinics and hospital sitesin [place], [place], [place] and [place]. This disclosure is being madepursuant to the Care Everywhere program and may not contain all information available regarding this patient. Last updated 18.[facility] Social History Tobacco Use Types Packs/Day Years Used Date Smoking Tobacco: Never Assessed Sex and Gender Information Value Date Recorded Sex Assigned at Not on file Gender Identity Not on file Sexual Orientation Not on file Procedures * PATHOLOGY TISSUE(Performed 10/04/2017) * FLOW CYTOMETRY TISSUE PANEL(Performed 10/04/2017) Performed for Other nonspecific lymphadenitis Results * PATHOLOGY TISSUE (10/04/2017 1:55 PM CDT) Case Report Surgical Pathology Report Case: [id number] Authorizing Provider: Ryder Yi MD Collected: 10/04/2017 01:55 PM Pathologist: Sharon Calvo MD Received: 10/05/2017 01:56 PM Specimen: Soft Tissue Mass, OSC: [id number] 10/06/2017 10:26 AM [facility] Final Diagnosis Retroperitoneal mass, needle core biopsy (OSC [id number], 10/04/17): - Follicular lymphoma, as sampled. - See interpretation. 10/06/2017 10:26 AM [facility] Microscopic Description and Comment Review of the specimen reveals minute fragments of soft tissue infiltrated by small mature lymphocytes arranged in a vaguely nodular pattern. The lymphoid cells are infiltrating skeletal muscle and adipose tissue. There is no significant large cell population identified. No necrosis is seen. A deeper H&E-stained level prepared in the [facility] Department of Pathology confirms these findings. Immunohistochemistry is performed in the [facility] Department of Pathology with appropriately reactive controls to further characterize the immunoarchitecture. The majority of lymphocytes are positive for CD20. The MC59-zkjgkqgg B-lymphocytes are also positive for CD10 and BCL2. CD3 highlights background scattered T-lymphocytes. CD21 shows small follicular dendritic cell meshworks in the B-cell nodules. Concurrent flow cytometry ([id number]) shows a SL16-fqclrzei mature B-cell lymphoma. In summary, the retroperitoneal mass is involved by a tumor best classified as follicular lymphoma. In the needle core biopsy there is no significant centroblast population identified; however, in the context of a larger mass, an associated higher grade lymphoma cannot be excluded. Clinical correlation is required. SALU/XAVI/xavi 10/06/2017 10:26 AM [facility] Clinical History The patient is a 76 year old woman with low back pain. On imaging, a soft tissue mass was detected in the retroperitoneum. 10/06/2017 10:26 AM [facility] Materials Received Received are 2 slides and 1 block labeled as F erica, Mana and [id number] along with a copy of the outside pathology report. The materials originate from [facility], [address] [place] [address]. All materials are returned to the referring institution, along with a copy of our final report. 10/06/2017 10:26 AM [facility] Disclaimer The performance characteristics of all immunohistochemical and indirect immunofluorescence stains (if any) cited in this report were determined by the Histopathology Laboratory of [facility]. Some of these tests were developed by our own laboratory and have not been cleared or approved by the US Food and Drug Administration. The FDA does not require this test to go through premarket FDA review. These tests are used for clinical purposes. They should not be regarded as investigational or for research. This laboratory is certified under the Clinical Laboratory Improvement Amendments (CLIA) as qualified to perform high complexity clinical laboratory testing. This case has been personally reviewed and interpreted by the attending (teaching) pathologist. 10/06/2017 10:26 AM [facility] Synoptic Report NON-HODGKIN LYMPHOMA/LYMPHOID NEOPLASMS: Biopsy, Resection (NHL - All Specimens) SPECIMEN Specimen: Other (specify): Retroperitoneal mass Procedure: Biopsy Tumor Site: Other tissue(s) or organ(s): Retroperitoneum TUMOR Histologic Type (Based on the 2008 WHO Classification): Mature B-Cell Neoplasms Histologic Type (Based on the 2008 WHO Classification): Follicular lymphoma SPECIAL STUDIES Immunophenotyping (Flow Cytometry and / or Immunohistochemistry) : Performed Specify Method(s) and Results: Immunohistochemistry: Tumor cells are positive for CD20, CD10, and BCL-2. 10/06/2017 10:26 AM CDT [facility] Embedded Images 10/06/2017 10:26 AM CDT [facility] Pathology/Cytolo gy SOFT TISSUE MASS / Unknown 10/04/2017 1:55 PM CDT 10/05/2017 1:56 PM CDT Ryder Yi MD LAB - PATHOLOGY/CYTO LOGY ORDERABLES [facility] [address] [phone] * FLOW CYTOMETRY TISSUE PANEL (10/04/2017 11:57 AM CDT) Case Report Flow Cytometry Case: [id number] Authorizing Provider: Ryder Yi MD Collected: 10/04/2017 11:57 AM Pathologist: Sharon Calvo MD Received: 10/06/2017 09:05 AM Specimen: Peritoneal Biopsy, RETROPERITONEAL MASS 10/06/2017 10:01 AM [facility] Final Diagnosis Retroperitoneal mass, Flow cytometric immunophenotypic analysis: - [id number]-[id number] mature B-cell lymphoma. - Paucicellular and reduced viability specimen - See interpretation. 10/06/2017 10:01 AM [facility] Flow Cytometry Interpretation The retroperitoneal mass biopsy specimen is paucicellular and has a reduced viability of 50%. Most of the cells are within the lymphocyte gate (80%). Within this region, there is a monoclonal B-cell population identified expressing CD10, CD19, CD20, CD45, and surface kappa light chains but not CD5, CD23, or CD34. By CD19, this population comprises 44% of all events. A cytospin prepared from the flow cytometry specimen is reviewed for quality management nurse purposes. The retroperitoneal biopsy is paucicellular and has reduced viability but shows involvement by a EF10-sdxknbjw mature B-cell lymphoma. Correlation with clinical findings and the concurrent tissue biopsy ([facility]; [id number]) is required. These findings were discussed with Dr. Yamileth Yi at 1:55 p.m. On 10/05/[address] Dmitry Tapia. KR/YARN WINDER/svp chief marketing officer 10/06/2017 10:01 AM [facility] Flow Cytometry Results Differential Result Comment Flow Cell Count /uL 320 Total Viability % 50.0 Lymphocytes % 80 Dim CD45 Region % 6 Monocytes % 4 Granulocytes % 5 10/06/2017 10:01 AM [facility] Reason for test Other nonspecific lymphadenitis 10/06/2017 10:01 AM [facility] Client Specimen ID # [id number] 10/06/2017 10:01 AM [facility] Number of markers 16 were performed. A Flow CD3 A Flow CD10 A Flow CD20 A Flow CD23 A Flow CD2 A Flow CD4 A Flow CD1a A Flow CD5 A Flow CD19 A Flow CD34 A Flow CD45 A Flow CD7 A Flow CD8 A Flow CD30 A Loda+CD19+ A Lambda+CD19+ 10/06/2017 10:01 AM [facility] Disclaimer Test performed at [facility], [address] [place] [address], [address]. *The established laboratory minimum viability is 70%. Values below the minimum may result in the failure to find an abnormal population of cells. This test was developed and its performance characteristics determined by the Flow Cytometry Laboratory. It has not been cleared by the [place] Food and Drug Administration (FDA). The FDA has determined that such clearance or approval is not necessary. This test is used for clinical purposes. It should not be regarded as investigational or for research. This laboratory is regulated under the Clinical Laboratory Improvement Amendments of 1998 (CLIA) as a qualified to perform high complexity clinical testing. 10/06/2017 10:01 AM [facility] Embedded Images 10:01 AM [facility] Pathology/Cytolo gy PERITONEAL BIOPSY SPECIMEN / Unknown 10/04/2017 11:57 AM CDT 10/06/2017 9:05 AM CDT Ryder Yi MD LAB - PATHOLOGY/CYTO LOGY ORDERABLES [facility] [address] [phone]
--- OUTSIDE RECORDS SUMMARY | 2024-07-18 13:04 | XMS_ITS ---
Author Organization [facility] Address [address] [place] [address] Care Team Providers Care Ice Cream Maker Name Role Phone zzzzMigration, zzzzProvider Unavailable Unav ailable REASON FOR VISIT EMR-Woody Encounters Encounter Location Date Provider Diagnosis [facility] [address] [place] [address] 03/25/2023 zzzzProvider zzzzMigration Plan Of Treatment No Information Progress Notes * Mana YANCEY MDOB: [birth year] (83 yo F)Acc No.[id number]:03/25/2023 Patient: Finn FELDMANMana :1940 A ge:82 Y S ex:Female Address:[address] [place] [id number] Subjective: * Chief Complaints: * E MR-Woody * Medical History: * Surgical History: * Hospitalization/Major Diagno stic Procedure: * Medications: Objective: * Vitals: * Physical Examination: Assessment: Plan: * Treatment: * Procedure Codes: * * Date:
--- OUTSIDE RECORDS SUMMARY | 2024-07-18 13:04 | XMS_ITS | Encounter Summary ---
Author Organization [facility] Address [address] [place] [address] Care Team Providers Care Search Advertising Strategist Name Role Phone Unavailable Primary Care Provider Unavailabl e Encounter Details Date Type Department Care Team (Latest Contact Info) Description 10/06/2017 Lab Requisition [facility] Care Pathology Lab [address] [place] [address] Ryder Yi MD [address] [place] [address] Other nonspecific lymphadenitis Social History Tobacco Use Types Packs/Day Years Used Date Smoking Tobacco: Never Assessed Sex and Gender Information Value Date Recorded Sex Assigned at Not on file Gender Identity Not on file Sexual Orientation Not on file documented as of this encounter Plan of Treatment Not on file documented as of this encounter Procedures Procedure Name Priority Date/Time Associated Diagnosis Comments FLOW CYTOMETRY TISSUE PANEL Routine 10/04/2017 11:57 AM CDT Other nonspecific lymphadenitis documented in this encounter Results * FLOW CYTOMETRY TISSUE PANEL (10/04/2017 11:57 AM CDT) Case Report Flow Cytometry Case: [id number] Authorizing Provider: Ryder Yi MD Collected: 10/04/2017 11:57 AM Pathologist: Sharon Calvo MD Received: 10/06/2017 09:05 AM Specimen: Peritoneal Biopsy, RETROPERITONEAL MASS 10/06/2017 10:01 AM CDT [facility] Final Diagnosis Retroperitoneal mass, Flow cytometric immunophenotypic analysis: - [id number] mature B-cell lymphoma. - Paucicellular and reduced viability specimen - See interpretation. 10/06/2017 10:01 AM CDT [facility] Flow Cytometry Interpretation The retroperitoneal [...] flow cytometry specimen is reviewed for quality process auditor purposes. The retroperitoneal biopsy is paucicellular and has reduced viability but shows involvement by a JK11-sfbngpwo mature B-cell lymphoma. Correlation with clinical findings and the concurrent tissue biopsy ([facility]; [id number]) is required. These findings were discussed with Dr. Yamileth Yi at 1:55 p.m. On 10/05/[address] Dmitry Tapia. SAUL/XAVI/xavi 10/06/2017 10:01 AM [facility] Flow Cytometry Results Differential Result Comment Flow Cell Count /uL 320 Total Viability % 50.0 Lymphocytes % 80 Dim CD45 Region % 6 Monocytes % 4 Granulocytes % 5 10/06/2017 10:01 AM [facility] Reason for test Other nonspecific lymphadenitis 10/06/2017 10:01 AM [facility] Client Specimen ID # [id number] 10/06/2017 10:01 AM [facility] Number of markers 16 were performed. A Flow CD3 A Flow CD10 A Flow CD20 A Flow CD23 A Flow CD2 A Flow CD4 A Flow CD1a A Flow CD5 A Flow CD19 A Flow CD34 A Flow CD45 A Flow CD7 A Flow CD8 A Flow CD30 A [place]+CD19+ A Lambda+CD19+ 10/06/2017 10:01 AM [facility] Disclaimer Test performed at [facility], [address] [place] [address], [address]. *The established laboratory minimum viability is 70%. [...] high complexity clinical testing. 10/06/2017 10:01 AM CDT [facility] Embedded Images 10:01 AM CDT [facility] Pathology/Cytolo gy PERITONEAL BIOPSY SPECIMEN / Unknown 10/04/2017 11:57 AM CDT 10/06/2017 9:05 AM CDT Ryder Yi MD LAB - PATHOLOGY/CYTO LOGY ORDERABLES Performing Organization Address City/State/[facility] Co de Phone Number [facility] [address] [phone] documented in this encounter Visit Diagnoses Diagnosis Other nonspecific lymphadenitis documented in this encounter
--- OUTSIDE RECORDS SUMMARY | 2024-07-18 13:04 | XMS_ITS | Clinical Summary ---
Author Organization [facility] Address [address] [place] [address] Care Team Providers Care Layout Operator Name Role Phone Unavailable Primary Care Provider Unavailabl e Source Comments [facility],non-owned Affiliates and Associated Physician Practices is amultiple site organization consisting of ambulatory clinics and hospital sitesin [place], [place] and [place]. This disclosure is being madepursuant to the Care Everywhere program and may not contain all information available regarding this patient. Last updated 18.[facility] Social History Tobacco Use Types Packs/Day Years Used Date Smoking Tobacco: Never Assessed Sex and Gender Information Value Date Recorded Sex Assigned at Not on file Gender Identity Not on file Sexual Orientation Not on file Plan of Treatment Health Maintenance Due Date Last Done Comments BONE DENSITY TESTING 1940 DTAP/TDAP/TD VACCINES (1 - Tdap) 1957 PNEUMOCOCCAL VACCINE 50+ (1 of 1 - PCV) 1988 ZOSTER VACCINE (1 of 2) 1988 Respiratory Syncytial Virus (RSV) Vaccine Pt: or over 60 yrs (1 - 1-dose 75+ series) 2013 COVID-19 VACCINE (2023-2 5 season) 2024 INFLUENZA VACCINE (#1) 2024 DEPRESSION SCREENING 06/05/2024 MEDICARE AWV CALENDAR YEAR 2024 HEPATITIS B VACCINE Aged Out No longe r eligible based on patient's age to complete this topic HIB VACCINE Aged Out No longer eligi ble based on patient's age to complete this topic HPV VACCINE Aged Out No longer eligi ble based on patient's age to complete this topic MENINGOCOCCAL (Group B) VACCINE Aged Out No longer eligible based on patient's age to complete this topic MENINGOCOCCAL VACCINE Aged Out No milena ivelisse eligible based on patient's age to complete this topic
--- OUTSIDE RECORDS SUMMARY | 2024-07-18 13:04 | XMS_ITS ---
Author Organization [facility] Address [address] [place] [address] Care Team Providers Care Warp Tying Machine Tender Name Role Phone zzzzMigration, zzzzProvider Unavailable Unav ailable REASON FOR VISIT EMR-Woody Encounters Encounter Location Date Provider Diagnosis [facility] [address] [place] [address] 03/26/2023 zzzzProvider zzzzMigration Plan Of Treatment No Information Progress Notes * Mana YANCEY MDOB: [birth year] (83 yo F)Acc No.[id number]:03/26/2023 Patient: Finn FELDMANMana :1940 A ge:82 Y S ex:Female Address:[address] [place] [address] Subjective: * Chief Complaints: * E MR-Woody * Medical History: * Surgical History: * Hospitalization/Major Diagno stic Procedure: * Medications: Objective: * Vitals: * Physical Examination: Assessment: Plan: * Treatment: * Procedure Codes: * * Date:
--- OUTSIDE RECORDS SUMMARY | 2024-07-18 13:04 | XMS_ITS | Encounter Summary ---
Author Organization [facility] [employer] Address [address] [place] [address] Care Team Providers Care Marketing Communications Manager Name Role Phone Geovanni Hoffman MD Primary Care Provider [phone] Encounter Details Date Type Department Care Team ([facility] Contact Info) Description 07/18/2024 Orders Only [facility]3] Oncology and [facility] [address] [place] [address] Linden Diaz MD [address] [place] [address] [employer] [address] [place] [phone] Follicular lymphoma, unspecified follicular lymphoma type, unspecified body region (CMS/HCC) (Primary Dx) Social History Tobacco Use Types Packs/Day Years Used Date Smoking Tobacco: Never Smokeless Tobacco: Never Alcohol Use Standard Drinks/Week Comments No 0 (1 standard drink = 0.6 oz pur e alcohol) Comments No Sex and Gender Information Value Date Recorded Sex Assigned at Not on file Legal Sex Female 3:08 PM CDT Gender Identity Not on file Sexual Orientation Not on file documented as of this encounter Plan of Treatment Upcoming Encounters Date Type Department Care Team (Late st Contact Info) Description 07/22/2024 2:30 PM PROJECT MANAGEMENT SPECIALIST Office Visit [facility]3] Oncology and Hematology [facility] [address] [place] [address] Linden Diaz MD [address] [place] [address] [employer] [address] [place] [phone] Scheduled Orders Name Type Priority Associated Diagnoses Orde r Schedule CBC WITH DIFFERENTIAL Lab Routine Follicular lymphoma, unspecified follicular lymphoma type, unspecified body region (CMS/HCC) Expected: 07/18/2024, Expires: 07/18/2025 COMPREHENSIVE METABOLIC PANEL Lab Routine Follicular lymphoma, unspecified follicular lymphoma type, unspecified body region (CMS/HCC) Expected: 07/18/2024, Expires: 07/18/2025 LACTATE DEHYDROGENASE Lab Routine Follicular lymphoma, unspecified follicular lymphoma type, unspecified body region (CMS/HCC) Expected: 07/18/2024, Expires: 07/18/2025 documented as of this encounter Visit Diagnoses Diagnosis Follicular lymphoma, unspecified follicular lymphoma type, unspecified body region (CMS/HCC)- Primary documented in this encounter Care Teams Marketing Communications Manager Relationship Specialty Start Date End Date Geovanni Hoffman MD PCP - General Family Practice 10/23/17 documented as of this encounter
--- OUTSIDE RECORDS SUMMARY | 2024-07-18 13:04 | XMS_ITS | Continuity of Care Document ---
Author Organization [facility] Address [address] [place] [address] Phone Care Team Providers Care Dean Of Women Name Role Phone Jules Soto MD, MD Unavailable Unavailable Procedures Procedure Date AFTER CATARACT [...] Date Provider Providers Copied on Encounter Ophthalmology [facility], [address] [place] [address], [id number], tel:[phone] [address] [place] [address] No Information 4 Charles Vicente. [address], [address], [place], [place], [id number] , [place]. tel:[phone] Referring Provider: Jules Soto MD P, [address], [place], [place], [id number]. tel:[phone] [facility], [address] [place] [address], [id number], tel:[phone] [address] [place] [address] No Information 4 Charles Vicente. [address], [address] [place] [address], [id number] , [place]. tel:[phone] Referring Provider: Jules Murray, [address], [place], [place], [id number]. tel:[phone] [facility], [address] [place] [address], [id number], [place] tel:[phone] [facility] No Information 4 Charles Vicente. [address], [address], [place], [place], [id number] , [place]. tel:[phone] Referring Provider: Jules Murray, [address], [place], [place], [address]. tel:[phone] [facility], [address] [place] [address], [id number], [place] tel:[phone] [facility] No Information 4 Charles Vicente. [address], [address], [place], [place], [id number] , [place]. tel:[phone] Referring Provider: Jules Soto MD P, [address], [place], [place], [address]. tel:[phone] [facility], [address] [place] [address], [place], [place], [id number], [place] tel:[phone] [facility] No Information 3 Charles Vicente. [address], [address], [place], [place], [id number] , [place]. tel:[phone] Referring Provider: Jules Murray, [address], [place], [place], [address]. tel:[phone] OFFICE/OUTPA TIENT VISIT, [facility], [address] [place] [address], [place], [place], [id number], [place] tel:[phone] [facility] No Information 3 Charles Vicente. [address], [place], [place], [address] , [place]. tel:[phone] Referring Provider: Jules Soto MD P, [address], [place], [place], [id number]. tel:[phone] Family History Family Member Type Diagnosis Age At Onset No Information Payers Payer name Insurance type Covered libertarian ID Authoriza tion(s) No Information Social History Type Description Quantity Date Captured Comments Sex Female Smoking Status No Information Chief Complaint And Reason For Visit No Information Plan Of Treatment Date Type Action Status No Information History Of Present Illness Encounter Date Complaint History Of Prese nt Illness No Information Instructions Date Instruction Additional Infor mation No Information Assessments Type Assessment Date No Information
--- OUTSIDE RECORDS SUMMARY | 2024-07-18 13:04 | XMS_ITS | Clinical Summary ---
Author Organization [facility] Address [address] [address] Care Team Providers Care Data Warehouse Specialist Name Role Phone Geovanni Hoffman MD Primary Care Provider [phone] Allergies No known active allergies Medications ALPRAZolam (XANAX) 0.25 mg tablet Take 0.25 mg by mouth 3 times daily as needed . 10/09/2017 Active amitriptyline (ELAVIL) 25 mg tablet Take 25 mg by mouth daily at bedtime . 09/25/2017 Active calcium carbonate + vitamin D (CALTRATE+D) 600 mg(1,500mg) -400 unit Tablet Take 1 Tablet by mouth daily . Active lidocaine-prilo arlette (EMLA) 2.5-2.5 % Cream Apply to port site 30-60 mins prior to use. 30 Gram 3 10/27/2017 Active lisinopril (PRINIVIL) 20 mg tablet Take 20 mg by mouth daily . 11/28/2017 Active raNITIdine (ZANTAC) 300 mg tablet daily at bedtime . 05/31/2018 Active benzonatate (TESSALON) 200 mg capsule Take 200 mg by mouth 3 times daily. Active naproxen sodium (ALEVE ORAL) Take by mouth. Active hydroCHLOROthia zide (HYDRODIURIL) 12.5 mg tablet 11/04/2019 Acti ve fluconazole (DIFLUCAN) 10 mg/mL pediatric suspension Take by mouth every 24 hours. Active famotidine (PEPCID) 40 mg tablet Take 40 mg by mouth 2 times daily. 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 Follicular lymphoma 10/23/2017 Encounters Date Type Department Care Team Description 07/18/2024 Orders Only [facility] Oncology and Hematology - Darius [address] [place] [address] Linden Diaz MD Follicular lymphoma, unspecified follicular lymphoma type, unspecified body region (CMS/HCC) (Primary Dx) 07/02/2024 External Device Data STL ABSTRACTION Provider, Abstract from Last 3 Months Family History Medical History Relation Name Comments Lung Cancer Father Heart Disease Maternal Grandfather Heart Disease Mother Stroke Mother Relation Name Status Comments Father Maternal Grandfather Mother Social History Tobacco Use Types Packs/Day Years Used Date Smoking Tobacco: Never Smokeless Tobacco: Never Tobacco Cessation:Counseling Given: Not Answered Alcohol Use Standard Drinks/Week Comments No 0 (1 standard drink = 0.6 oz pur e alcohol) Comments No Sex and Gender Information Value Date Recorded Sex Assigned at Not on file Legal Sex Female 3:08 PM CDT Gender Identity Not on file Sexual Orientation Not on file Last Filed Vital Signs Vital Sign Reading Time Taken Comments Blood Pressure 188/99 07/20/2023 2:12 PM CUSTOMER DATA TECHNICIAN Pulse 65 07/20/2023 2:10 PM CUSTOMER DATA TECHNICIAN Temperature 36 C (96.8 F) 07/20/2023 2:10 PM CUSTOMER DATA TECHNICIAN Respiratory Rate 14 07/20/2023 2:10 PM CUSTOMER DATA TECHNICIAN Oxygen Saturation 99% 07/20/2022 2:33 PM CUSTOMER DATA TECHNICIAN Inhaled Oxygen Concentration - - Weight 70.3 kg (155 lb) 07/20/2023 2:10 PM CUSTOMER DATA TECHNICIAN Height 174 cm (5' 8.5 ) 05/19/2021 2:00 PM CUSTOMER DATA TECHNICIAN Body Mass Index 23.22 05/19/2021 2:00 PM CUSTOMER DATA TECHNICIAN Plan of Treatment Upcoming Encounters Date Type Department Care Team (Late st Contact Info) Description 07/22/2024 2:30 PM CUSTOMER DATA TECHNICIAN Office Visit [facility] [place] Oncology and Hematology Darius [address] [place] [address] Linden Diaz MD [address] [facility] [address] [place] [address] Health Maintenance Due Date Last Done Comments DTAP/TDAP/TD VACCINES (1 - Tdap) 1957 PNEUMOCOCCAL VACCINE 65+ YEARS (1 of 2 - PCV) 11/02/18 56 ZOSTER VACCINE (1 of 2) 1957 OSTEOPOROSIS SCREENING 11/03/2003 RSV VACCINE (60+ or ) (1 - 1-dose 75+ series) 2013 INFLUENZA VACCINE (#1) 2024 Medicare [place] ([place] Prev entative Visit/Annual Wellness Visit 06/05/2024 Insurance [facility] Care Teams Data Warehouse Specialist Relationship Specialty Start Date End Date Geovanni Hoffman MD PCP - General Family Practice 10/23/17
--- OUTSIDE RECORDS SUMMARY | 2024-07-18 13:05 | XMS_ITS | Patient Health Record ---
Author Organization [facility] Address [address] [facility] [address] [place] [address] Support Name Relationship Address Phone Mana Singleton Guarantor Unknown [phone] Reason For Referral No Information Plan Of Treatment No Information
--- OUTSIDE RECORDS SUMMARY | 2024-07-18 13:05 | XMS_ITS | Encounter Summary ---
Author Organization [facility] Address [address] [place] [address] Care Team Providers Care Infrastructure Design Engineer Name Role Phone Geovanni Hoffman MD Primary Care Provider [phone]- [phone] Encounter Details Date Type Department Care Team ([facility] Contact Info) Description 03/28/2018 Chart Note [facility] Radiation Therapy [address] [place] [address] [place] [address] [place] [address] Social History Tobacco Use Types Packs/Day Years [...] Encounters Date Type Department Care Team (Late Contact Info) Description 07/22/2024 2:30 PM CLERK SUPERVISOR Office Visit [facility] Oncology and Hematology - Darius [address] [facility] [address] [place] [address] Linden iDaz MD [address] [facility] [address] [place] [address] documented as of this encounter Visit Diagnoses Not on filedocumented in this encounter Care Teams Infrastructure Design Engineer Relationship Specialty Start Date End Date Geovanni Hoffman MD PCP - General Family Practice 10/23/17 documented as of this encounter
--- OUTSIDE RECORDS SUMMARY | 2024-07-18 13:05 | XMS_ITS | Encounter Summary ---
Author Organization [facility] Address [address] [place] [address] Care Team Providers Care Surgical Instrument Repair Specialist Name Role Phone Unavailable Primary Care Provider Unavailabl e Encounter Details Date Type Department Care Team (Late st Contact Info) Description 10/05/2017 Lab Requisition [facility] [address] [place] [address] Ryder Yi MD [address] [place] [address] Social History Tobacco Use Types Packs/Day Years Used Date Smoking Tobacco: Never Assessed Sex and Gender Information Value Date Recorded Sex Assigned at Not on file Gender Identity Not on file Sexual Orientation Not on file documented as of this encounter Plan of Treatment Not on file documented as of this encounter Procedures Procedure Name Priority Date/Time Associated Diagnosis Comments PATHOLOGY TISSUE Routine 10/04/2017 1:55 PM CDT documented in this encounter Results * PATHOLOGY TISSUE (10/04/2017 1:55 PM CDT) Case Report Surgical Pathology Report Case: [id number] Authorizing Provider: Ryder Yi MD Collected: 10/04/2017 01:55 PM Pathologist: Sharon Calvo MD Received: 10/05/2017 01:56 PM Specimen: Soft Tissue Mass, OSC: [id number] 10/06/2017 10:26 AM CDT [facility] Final Diagnosis Retroperitoneal mass, needle core biopsy (OSC [id number], 10/04/17): - Follicular lymphoma, as sampled. - See interpretation. 10/06/2017 10:26 AM CDT [facility] Microscopic Description and Comment Review of the specimen reveals minute fragments of soft tissue infiltrated by small mature lymphocytes arranged in a vaguely nodular pattern. The lymphoid cells are infiltrating skeletal muscle and adipose tissue. There is no significant large cell population identified. No necrosis is seen. A deeper H&E-stained level prepared in the [facility] Department of Pathology confirms these findings. Immunohistochemistry is performed in the [facility] Department of Pathology with appropriately reactive controls to further characterize the immunoarchitecture. The majority of lymphocytes are positive for CD20. The IK59-[id number] B-lymphocytes are also positive for CD10 and BCL2. CD3 highlights background scattered T-lymphocytes. CD21 shows small follicular dendritic cell meshworks in the B-cell nodules. Concurrent flow cytometry ([id number]) shows a ZH51-gnsuowxa mature B-cell lymphoma. In summary, the retroperitoneal mass is involved by a tumor best classified as follicular lymphoma. In the needle core biopsy there is no significant centroblast population identified; however, in the context of a larger mass, an associated higher grade lymphoma cannot be excluded. Clinical correlation is required. SAUL/XAVI/xavi 10/06/2017 10:26 AM [facility] PATH[facility] Clinical History The patient is a 76 year old woman with low back pain. On imaging, a soft tissue mass was detected in the retroperitoneum. 10/06/2017 10:26 AM [facility] Materials Received Received are 2 slides and 1 block labeled as Mana Tolbert and S [id number] along with a copy of the outside pathology report. [place] [address]. All materials are returned to the referring institution, along with a copy of our final report. 10/06/2017 10:26 AM [facility] Disclaimer The performance characteristics of all immunohistochemical and indirect immunofluorescence stains (if any) cited in this report were determined by the Histopathology Laboratory of [facility]. Some of these tests were developed by [...] the attending (teaching) pathologist. 10/06/2017 10:26 AM [facility] Synoptic Report NON-HODGKIN LYMPHOMA/LYMPHOID NEOPLASMS: [...] CD20, CD10, and BCL-2. 10/06/2017 10:26 AM [facility] Embedded Images 10/06/2017 10:26 AM [facility] Pathology/Cytolo gy SOFT TISSUE MASS / Unknown 10/04/2017 1:55 PM CDT 10/05/2017 1:56 PM CDT Ryder Yi MD LAB - PATHOLOGY/CYTO LOGY ORDERABLES Performing Organization Address [facility]/State/[facility] Co de Phone Number [facility] [address] [phone] documented in this encounter Visit Diagnoses Not on filedocumented in this encounter
--- OUTSIDE RECORDS SUMMARY | 2024-07-18 13:05 | XMS_ITS | Referral Summary ---
Author Organization [facility] Address [address] [place] [address] Care Team Providers Care Student Recruiter Name Role Phone Unavailable Primary Care Provider Unavailabl e Source Comments [facility],non-owned Affiliates and Associated Physician Practices is amultiple site organization consisting of ambulatory clinics and hospital sitesin [place], [place], [place] and [place]. This disclosure is being madepursuant to the Care Everywhere program and may not contain all information available regarding this patient. Last updated 18.[facility] [employer] Social History Tobacco Use Types Packs/Day Years Used Date Smoking Tobacco: Never Assessed Sex and Gender Information Value Date Recorded Sex Assigned at Not on file Gender Identity Not on file Sexual Orientation Not on file Plan of Treatment Not on file
[2024-07-18 13:16] LABS: Basophils Absolute Auto 0.1 K/mm3 (0.0-0.1); Eosinophils Absolute Auto 0.2 K/mm3 (0-0.3); Eosinophils Percent Auto 2.9 % (0-4.4); Hematocrit 36.9 % (37.0-47.0); Hemoglobin 12.2 g/dL (12.0-15.0); Immature Granulocyte Absolute 0.01 K/mm3 (0.00-0.031); Immature Granulocyte Percent A 0.2 % (0-0.5); Lymphocytes Absolute Auto 1.01 K/mm3 (0.9-3.2); Lymphocytes Percent Auto 19.5 % (18.3-44.2); Mean Corpuscular HGB Conc 33.1 g/dl (32-36); Mean Corpuscular Hemoglobin 31.2 pg (26-34); Mean Corpuscular Volume 94.4 fl (80-100); Mean Platelet Volume 9.6 fl (7.4-10.4); Monocytes Absolute Auto 0.4 K/mm3 (0.1-0.6); Monocytes Percent Auto 7.5 % (2.6-8.5); Neutrophils Absolute Auto 3.6 K/mm3 (1.3-6.7); Neutrophils Percent Auto 68.9 % (45.5-73.1); Platelet Count Result 146 k/mm3 (150-375); Red Blood Count 3.91 M/mm3 (4.2-5.4); Red Cell Distribution Width 13.5 % (11.5-14.5); White Blood Count 5.2 K/mm3 (4.5-10.0)
[2024-07-18 16:59] LABS: Alanine Aminotransferase 24 U/L (6-35); Albumin Level 4.6 g/dL (3.5-5.1); Alkaline Phosphatase 63 U/L (38-126); Anion Gap 10 mmol/L (4-12); Aspartate Amino Transferase 45 U/L (14-36); Bilirubin,Total 0.7 mg/dL (0.2-1.3); Blood Urea Nitrogen 28 mg/dL (7-17); Calcium 9.5 mg/dL (8.4-10.2); Carbon Dioxide 27 mmol/L (22-30); Chloride 102 mmol/L (98-107); Estimated Glomerular Filt Rate 51; Glucose 111 mg/dL (65-110); Lactate Dehydrogenase 225 U/L (120-246); Sodium 139 mmol/L (137-145)
== END 2024-07-18 12:59 | disposition home or self-care (01) ==
LOC: ANHLAB 12:58
PROVIDERS: PCP Family Medicine; Visit Provider Internal Medicine Hematology & Oncology
DX: C82.90 Follicular lymphoma, unspecified, unspecified site (principal)
CPT/HCPCS: 36415; 80053; 83615; 85025

== ENCOUNTER 2024-08-20 07:20 | Outpatient (CLI) | payer MEDICARE, SELFPAY ==
--- OUTSIDE RECORDS SUMMARY | 2024-08-20 07:23 | XMS_ITS ---
Author Organization [facility] Address [address] [facility] [address] [place] [address] Care Team Providers Care Slab Conditioner Supervisor Name Role Phone zzzzMigration, zzzzProvider Unavailable Unav ailable REASON FOR VISIT EMR-Woody Encounters Encounter Location Date Provider Diagnosis [facility] [address] [facility] [address] [place] [address] 03/25/2023 zzzzProvider zzzzMigration Plan Of Treatment No Information Progress Notes * Mana YANCEY MDOB: [birth year] (83 yo F)Acc No.[id number]:03/25/2023 Patient: Finn FELDMANMana :1940 A ge:82 Y S ex:Female Address:[address] [place] [address] Subjective: * Chief Complaints: * E MR-Woody * Medical History: * Surgical History: * Hospitalization/Major Diagno stic Procedure: * Medications: Objective: * Vitals: * Physical Examination: Assessment: Plan: * Treatment: * Procedure Codes: * * Date:
--- OUTSIDE RECORDS SUMMARY | 2024-08-20 07:23 | XMS_ITS | Clinical Summary ---
Author Organization [facility] Address [address] [place] [address] Care Team Providers Care Aluminum Molder Name Role Phone eGovanni Hoffman MD Primary Care Provider [phone]- [phone] Allergies No known active allergies Medications ALPRAZolam [...] daily. 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 Follicular lymphoma 10/23/2017 Encounters Date Type Department Care Team Description 08/10/2024 External Device Data STL ABSTRACTION Provider, Abstract 08/09/2024 External Device Data STL ABSTRACTION Provider, Abstract 07/23/2024 External Device Data STL ABSTRACTION Provider, Abstract 07/22/2024 2:30 PM UTILITY OPERATOR YARN Office Visit [facility] Oncology and Hematology [facility] [address] [place] [address] Linden Diaz MD Follicular lymphoma, unspecified follicular lymphoma type, unspecified body region (CMS/HCC) (Primary Dx) 07/18/2024 Orders Only [facility] Oncology and Hematology [facility] [address] [place] [address] Linden Diaz MD Follicular lymphoma, unspecified follicular [...] Sign Reading Time Taken Comments Blood Pressure 147/84 07/22/2024 2:55 PM UTILITY OPERATOR YARN Pulse 62 07/22/2024 2:52 PM UTILITY OPERATOR YARN Temperature 36.4 C (97.5 F) 07/22/2024 2:52 PM UTILITY OPERATOR YARN Respiratory Rate 15 07/22/2024 2:52 PM UTILITY OPERATOR YARN Oxygen Saturation 94% 07/22/2024 2:52 PM UTILITY OPERATOR YARN Inhaled Oxygen Concentration - - Weight 72.9 kg (160 lb 12.8 oz) 07/22/2024 2:52 PM UTILITY OPERATOR YARN Height 174 cm (5' 8.5 ) 05/19/2021 2:00 PM UTILITY OPERATOR YARN Body Mass Index 24.09 05/19/2021 2:00 PM UTILITY OPERATOR YARN Plan of Treatment Upcoming Encounters Date Type Department Care Team (Late st Contact Info) Description 07/22/2025 3:30 PM UTILITY OPERATOR YARN Office Visit [facility] Oncology and Hematology - Darius [address] [facility] [address] [place] [address] Linden Diaz MD [address] [facility] [address] [place] [address] Health Maintenance Due Date Last Done Comments DTAP/TDAP/TD VACCINES (1 - Tdap) 1957 PNEUMOCOCCAL VACCINE 50+ YEARS (1 of 2 - PCV) 11/02/18 58 ZOSTER VACCINE (1 of 2) 1957 OSTEOPOROSIS SCREENING 11/03/2003 RSV VACCINE (60+ or ) (1 - 1-dose 75+ series) 2013 INFLUENZA VACCINE (#1) 2024 [place] ([place] Prev entative Visit/Annual Wellness Visit 06/05/2024 Insurance [facility] Care Teams Aluminum Molder Relationship Specialty Start Date End Date Geovanni Hoffman MD PCP - General Family Practice 10/23/17
--- OUTSIDE RECORDS SUMMARY | 2024-08-20 07:23 | XMS_ITS | Continuity of Care Document ---
Author Organization [facility] Address [address] [place] [address] Phone Care Team Providers Care Imaging Administrator Name Role Phone Jules Soto MD, MD [...] Date Provider Providers Copied on Encounter [facility], [address] [place] [address], [id number], tel:[phone] [address] [place] [address] No Information 4 Charles Vicente. [address], [place], [place], [id number] , [place]. [phone] Referring Provider: Jules Soto MD P, [address], [place], [place], [id number]. tel:[phone] [facility], [address] [place] [address], [id number], tel:[phone] [address] [place] [address] No Information 4 Charles Vicente. [address], [address] [place] [address], [id number] , [place]. tel:[phone] Referring Provider: Jules Murray, [address], [place], [place], [address]. tel:[phone] [facility], [address] [place] [address], [id number], [place] tel:[phone] [facility] No Information 4 Charles Vicente. [address], [place], [place], [id number] , [place]. tel:[phone] Referring Provider: Jules Murray, [address], [place], [place], [address]. tel:[phone] [facility], [address] [place] [address], [id number], [place] tel:[phone] [place] [facility] No Information 4 Charles Vicente. [address], [place], [place], [id number] , [place]. tel:[phone] Referring Provider: Jules Soto MD P, [address], [place], [place], [address]. tel:[phone] [facility], [address] [place] [address], [place], [place], [id number], [place] tel:[phone] [place] [facility] No Information 3 Charles Vicente. [address], [place], [place], [id number] , [place]. tel:[phone] Referring Provider: Jules Murray, [address], [place], [place], [id number]. tel:[phone] OFFICE/OUTPA TIENT VISIT, [facility], [address] [place] [address], [place], [place], [id number], [place] tel:[phone] [facility] No Information 3 Charles Vicente. [address], [place], [place], [address] , [place]. tel:[phone] Referring Provider: Jules Soto MD P, [address], [place], [place], [id number]. tel:[phone] Family History Family Member Type Diagnosis Age [...]
--- OUTSIDE RECORDS SUMMARY | 2024-08-20 07:24 | XMS_ITS | Referral Summary ---
Author Organization [facility] Address [address] [place] [address] Care Team Providers Care Phonograph Cartridge Assembler Name Role Phone Unavailable Primary Care Provider Unavailabl e Source Comments [facility],non-owned Affiliates and Associated Physician Practices is amultiple site organization consisting of ambulatory clinics and hospital sitesin [place], [place], [place] and [place]. This disclosure is being madepursuant to the Care Everywhere program and may not contain all information available regarding this patient. Last updated 18.[facility] [employer] Social History Tobacco Use Types Packs/Day Years Used Date Smoking Tobacco: Never Assessed Sex and Gender Information Value Date Recorded Sex Assigned at Not on file Gender Identity Not on file Sexual Orientation Not on file Plan of Treatment Not on file
--- OUTSIDE RECORDS SUMMARY | 2024-08-20 07:24 | XMS_ITS | Encounter Summary ---
Author Organization [facility] Address [address] [place] [address] Care Team Providers Care Staff Midwife Name Role Phone Geovanni Hoffman MD Primary Care Provider [phone] Encounter Details Date Type Department Care Team ([facility] Contact Info) Description 03/28/2018 Chart Note [facility] Radiation Therapy [address] [place] [address] [place] [address] [place] [address] Social History Tobacco Use Types [...] Department Care Team (Late Contact Info) Description 07/22/2025 3:30 PM SERVICE WRITER ADVISOR Office Visit [facility] Oncology and Hematology - Darius [address] [facility] [address] [place] [address] Linden Diaz MD [address] [facility] [address] [place] [address] documented as of this encounter Visit Diagnoses Not on filedocumented in this encounter Care Teams Staff Midwife Relationship Specialty Start Date End Date Geovanni Hoffman MD PCP - General Family Practice 10/23/17 documented as of this encounter
--- OUTSIDE RECORDS SUMMARY | 2024-08-20 07:24 | XMS_ITS | Patient Health Summary ---
Author Organization [facility] Address [address] [place] [address] Care Team Providers Care Branch Store Manager Name Role Phone Unavailable Primary Care Provider Unavailabl e Note from [facility],non-owned Affiliates and Associated Physician Practices is amultiple site organization consisting of ambulatory clinics and hospital sitesin [place], [place], [place] and [place]. This disclosure is being madepursuant to the Care Everywhere program and may not contain all information available regarding this patient. Last updated 18.[facility] Social History Tobacco Use Types Packs/Day [...] CDT) Case Report Surgical Pathology Report Case: [id number] Authorizing Provider: Ryder Yi MD Collected: 10/04/2017 01:55 PM Pathologist: Sharon Calvo MD Received: 10/05/2017 01:56 PM Specimen: Soft Tissue Mass, OSC: [id number] 10/06/2017 10:26 AM [facility] Final Diagnosis Retroperitoneal mass, needle core biopsy (OSC [id number], 10/04/17): - Follicular lymphoma, as sampled. - See interpretation. 10/06/2017 10:26 AM [facility] Microscopic Description and Comment Review of the specimen reveals minute fragments of soft tissue infiltrated by small mature lymphocytes arranged in a vaguely nodular pattern. The lymphoid cells are infiltrating skeletal muscle and adipose tissue. There is no significant large cell population identified. No necrosis is seen. A deeper H&E-stained level prepared in the [facility] Department of Pathology confirms these findings. Immunohistochemistry is performed in the [facility] Department of Pathology with appropriately reactive controls to further characterize the immunoarchitecture. The majority of lymphocytes are positive for CD20. The TY99-kqmnkoez B-lymphocytes are also positive for CD10 and BCL2. CD3 highlights background scattered T-lymphocytes. CD21 shows small follicular dendritic cell meshworks in the B-cell nodules. Concurrent flow cytometry ([id number]) shows a VC84-aifqoloj mature B-cell lymphoma. In summary, the retroperitoneal mass is involved by a tumor best classified as follicular lymphoma. In the needle core biopsy there is no significant centroblast population identified; however, in the context of a larger mass, an associated higher grade lymphoma cannot be excluded. Clinical correlation is required. SAUL/XAVI/xavi 10/06/2017 10:26 AM [facility] Clinical History The patient is a 76 year old woman with low back pain. On imaging, a soft tissue mass was detected in the retroperitoneum. 10/06/2017 10:26 AM [facility] Materials Received Received are 2 slides and 1 block labeled as F erica, Mana and S [id number] along with a copy of the outside pathology report. The materials originate from [facility], [address] [place] [address]. All materials are returned to the referring institution, along with a copy of our final report. 10/06/2017 10:26 AM [facility] Disclaimer The performance characteristics of all immunohistochemical and indirect immunofluorescence stains (if any) cited in this report were determined by the Histopathology Laboratory of [facility]. Some of these tests were developed [...] the attending (teaching) pathologist. 10/06/2017 10:26 AM [facility] Synoptic Report NON-HODGKIN LYMPHOMA/LYMPHOID NEOPLASMS: [...] CD10, and BCL-2. 10/06/2017 10:26 AM CDT [facility] Embedded Images 10/06/2017 10:26 AM CDT [facility] Pathology/Cytolo gy SOFT TISSUE MASS / Unknown 10/04/2017 1:55 PM CDT 10/05/2017 1:56 PM CDT Ryder Yi MD LAB - PATHOLOGY/CYTO LOGY ORDERABLES [facility] [address] [phone] * FLOW CYTOMETRY TISSUE PANEL (10/04/2017 11:57 AM CDT) Case Report Flow Cytometry Case: [id number] Authorizing Provider: Ryder Yi MD Collected: 10/04/2017 11:57 AM Pathologist: Sharon Calvo MD Received: 10/06/2017 09:05 AM Specimen: Peritoneal Biopsy, RETROPERITONEAL MASS 10/06/2017 10:01 AM [facility] Final Diagnosis Retroperitoneal mass, Flow cytometric immunophenotypic analysis: - BD49-hmylzjiz mature B-cell lymphoma. - Paucicellular and reduced viability specimen - See interpretation. 10/06/2017 10:01 AM [facility] Flow Cytometry Interpretation The retroperitoneal [...] the flow cytometry specimen is reviewed for clinical quality assurance specialist purposes. The retroperitoneal biopsy is paucicellular and has reduced viability but shows involvement by a IX96-znvetfyo mature B-cell lymphoma. Correlation with clinical findings and the concurrent tissue biopsy ([facility]; [id number]) is required. These findings were discussed with Dr. Yamileth Yi at 1:55 p.m. On 10/05/[address] Dmitry Tapia. KR/[employer] SALES REPRESENTATIVE/vp ad sales west 10/06/2017 10:01 AM [facility] Flow Cytometry Results Differential Result Comment Flow Cell Count /uL 320 Total Viability % 50.0 Lymphocytes % 80 Dim CD45 Region % 6 Monocytes % 4 Granulocytes % 5 10/06/2017 10:01 AM [facility] Reason for test Other nonspecific lymphadenitis 10/06/2017 10:01 AM [facility] Client Specimen ID # [id number] 10/06/2017 10:01 AM [facility] Number of markers 16 were performed. A Flow CD3 A Flow CD10 A Flow CD20 A Flow CD23 A Flow CD2 A Flow CD4 A Flow CD1a A Flow CD5 A Flow CD19 A Flow CD34 A Flow CD45 A Flow CD7 A Flow CD8 A Flow CD30 A [place]+CD19+ A Lambda+CD19+ 10/06/2017 10:01 AM [facility] Disclaimer Test performed at [facility], [address] [place] [address], [address]. *The established laboratory minimum viability is 70%. [...] high complexity clinical testing. 10/06/2017 10:01 AM [facility] Embedded Images 10:01 AM [facility] Pathology/Cytolo gy PERITONEAL BIOPSY SPECIMEN / Unknown 10/04/2017 11:57 AM CDT 10/06/2017 9:05 AM CDT Ryder Yi MD LAB - PATHOLOGY/CYTO LOGY ORDERABLES [facility] [address] [phone]
--- OUTSIDE RECORDS SUMMARY | 2024-08-20 07:24 | XMS_ITS | Encounter Summary ---
Author Organization [facility] Address [address] [place] [address] Care Team Providers Care Employment Law Specialist Name Role Phone Unavailable Primary Care Provider Unavailabl e Encounter Details Date Type Department Care Team (Latest Contact Info) Description 10/06/2017 Lab Requisition [facility] Care Pathology Lab [address] [place] [address] Ryder Yi MD [address] [place] [address] Other nonspecific lymphadenitis Social History Tobacco [...] AM CDT) Case Report Flow Cytometry Case: [id number] Authorizing Provider: Ryder Yi MD Collected: 10/04/2017 11:57 AM Pathologist: Sharon Calvo MD Received: 10/06/2017 09:05 AM Specimen: Peritoneal Biopsy, RETROPERITONEAL MASS 10/06/2017 10:01 AM CDT [facility] Final Diagnosis Retroperitoneal mass, Flow cytometric immunophenotypic analysis: - DD53-ypkkroen mature B-cell lymphoma. - Paucicellular and reduced [...] flow cytometry specimen is reviewed for quality assurance associate purposes. The retroperitoneal biopsy is paucicellular and has reduced viability but shows involvement by a IA76-iigfgmpl mature B-cell lymphoma. Correlation with clinical findings and the concurrent tissue biopsy ([facility]; [id number]) is required. These findings were discussed with Dr. Yamileth Yi at 1:55 p.m. On 10/05/[address] Dmitry Tpaia. SAUL/XAVI/xavi 10/06/2017 10:01 AM [facility] Flow Cytometry Results Differential Result Comment Flow Cell Count /uL 320 Total Viability % 50.0 Lymphocytes % 80 Dim CD45 Region % 6 Monocytes % 4 Granulocytes % 5 10/06/2017 10:01 AM [facility] Reason for test Other nonspecific lymphadenitis 10/06/2017 10:01 AM [facility] Client Specimen ID # [id number] 10/06/2017 10:01 AM [facility] Number of markers 16 were performed. A Flow CD3 A Flow CD10 A Flow CD20 A Flow CD23 A Flow CD2 A Flow CD4 A Flow CD1a A Flow CD5 A Flow CD19 A Flow CD34 A Flow CD45 A Flow CD7 A Flow CD8 A Flow CD30 A [place]+CD19+ A Lambda+CD19+ 10/06/2017 10:01 AM [facility] Disclaimer Test performed at [facility], [address] [place] [address], [address]. *The established laboratory minimum viability is 70%. [...] PATHOLOGY LAB Embedded Images 10:01 AM CDT [facility] Pathology/Cytolo gy PERITONEAL BIOPSY SPECIMEN / Unknown 10/04/2017 11:57 AM CDT 10/06/2017 9:05 AM CDT Ryder Yi MD LAB - PATHOLOGY/CYTO LOGY ORDERABLES Performing Organization Address City/State/[facility] Co de Phone Number [facility] PATHOLOG[facility] [address] [phone] documented in this encounter Visit Diagnoses Diagnosis Other nonspecific lymphadenitis documented in this encounter
--- OUTSIDE RECORDS SUMMARY | 2024-08-20 07:24 | XMS_ITS ---
Author Organization [facility] Address [address] [place] [address] Care Team Providers Care Art Glass Setter Name Role Phone zzzzMigration, zzzzProvider Unavailable Unav ailable REASON FOR VISIT EMR-Woody Encounters Encounter Location Date Provider Diagnosis [facility] [address] [place] [address] 03/26/2023 zzzzProvider zzzzMigration Plan Of Treatment No Information Progress Notes * Mana YANCEY MDOB: [birth year] (83 yo F)Acc No.[id number]:03/26/2023 Patient: Finn FELDMANMana :1940 A ge:82 Y S ex:Female Address:[address] [place] [address] Subjective: * Chief Complaints: * E MR-Woody * Medical History: * Surgical History: * Hospitalization/Major Diagno stic Procedure: * Medications: Objective: * Vitals: * Physical Examination: Assessment: Plan: * Treatment: * Procedure Codes: * * Date:
--- OUTSIDE RECORDS SUMMARY | 2024-08-20 07:24 | XMS_ITS | Encounter Summary ---
Author Organization [facility] Address [address] [place] [address] Care Team Providers Care Etl Programmer Name Role Phone Unavailable Primary Care Provider Unavailabl e Encounter Details Date Type Department Care Team (Late st Contact Info) Description 10/05/2017 Lab Requisition [facility] Care Pathology Lab [address] [place] [address] Ryder Yi MD [address] [place] [address] Social History Tobacco Use Types [...] CDT) Case Report Surgical Pathology Report Case: [id number] Authorizing Provider: Ryder Yi MD Collected: 10/04/2017 01:55 PM Pathologist: Sharon Calvo MD Received: 10/05/2017 01:56 PM Specimen: Soft Tissue Mass, OSC: [id number] 10/06/2017 10:26 AM CDT [facility] Final Diagnosis Retroperitoneal mass, needle core biopsy (OSC [id number], 10/04/17): - Follicular lymphoma, as sampled. - [...] A deeper H&E-stained level prepared in the [facility] Department of Pathology confirms these findings. Immunohistochemistry is performed in the [facility] Department of Pathology with appropriately reactive controls to further characterize the immunoarchitecture. The majority of lymphocytes are positive for CD20. The PF42-ezoeflaz B-lymphocytes are also positive for CD10 and BCL2. CD3 highlights background scattered T-lymphocytes. CD21 shows small follicular dendritic cell meshworks in the B-cell nodules. Concurrent flow cytometry ([id number]) shows a MU56-yikgukul mature B-cell lymphoma. In summary, the retroperitoneal mass is involved by a tumor best classified as follicular lymphoma. In the needle core biopsy there is no significant centroblast population identified; however, in the context of a larger mass, an associated higher grade lymphoma cannot be excluded. Clinical correlation is required. SAUL/XAVI/xavi 10/06/2017 10:26 AM [facility] Clinical History The patient is a 76 year old woman with low back pain. On imaging, a soft tissue mass was detected in the retroperitoneum. 10/06/2017 10:26 AM [facility] Materials Received Received are 2 slides and 1 block labeled as Mana Tolbert and S [id number] along with a copy of the outside pathology report[place] [address]. All materials are returned to the referring institution, along with a copy of our final report. 10/06/2017 10:26 AM [facility] Disclaimer The performance characteristics of all immunohistochemical and indirect immunofluorescence stains (if any) cited in this report were determined by the Histopathology Laboratory of [facility]. Some of these tests were developed by [...] the attending (teaching) pathologist. 10/06/2017 10:26 AM [facility] Synoptic Report NON-HODGKIN [...] CD10, and BCL-2. 10/06/2017 10:26 AM [facility] Embedded Images 10/06/2017 10:26 AM [facility] Pathology/Cytolo gy SOFT TISSUE MASS / Unknown 10/04/2017 1:55 PM CDT 10/05/2017 1:56 PM CDT Ryder Yi MD LAB - PATHOLOGY/CYTO LOGY ORDERABLES Performing Organization Address [facility]/State/[facility] Co de Phone Number [facility] [address] [phone] documented in this encounter Visit Diagnoses Not on filedocumented in this encounter
--- OUTSIDE RECORDS SUMMARY | 2024-08-20 07:24 | XMS_ITS | Patient Health Record ---
Author Organization [facility] Address [address] [place] [address] Support Name Relationship Address Phone Mana Singleton Guarantor Unknown [phone] Reason For Referral No Information Plan Of Treatment No Information
--- OUTSIDE RECORDS SUMMARY | 2024-08-20 07:24 | XMS_ITS | Clinical Summary ---
Author Organization [facility] Address [address] [place] [address] Care Team Providers Care Electrotyper Helper Name Role Phone Unavailable Primary Care Provider Unavailabl e Source Comments [facility] [employer],non-owned Affiliates and Associated Physician Practices is amultiple site organization consisting of ambulatory clinics and hospital sitesin [place], [place], [place] and [place]. This disclosure is being madepursuant to the Care Everywhere program and may not contain all information available regarding this patient. Last updated 18.[facility] [employer] Social History Tobacco Use Types Packs/Day Years [...] to complete this topic MENINGOCOCCAL (Group B) VACC INE SHARED DECISION-MAKING Aged Out No longer eligibl e based on patient's age to complete this topic MENINGOCOCCAL GROUPS A/C/Y/W VACCINE Aged Out No longer eligible b ased on patient's age to complete this topic
[2024-08-20 08:19] LABS: Basophils Absolute Auto 0.1 K/mm3 (0.0-0.1); Basophils Percent Auto 1.5 % (0.2-1.2); Eosinophils Absolute Auto 0.2 K/mm3 (0-0.3); Eosinophils Percent Auto 4.4 % (0-4.4); Hematocrit 35.7 % (37.0-47.0); Hemoglobin 11.9 g/dL (12.0-15.0); Immature Granulocyte Absolute 0.01 K/mm3 (0.00-0.031); Immature Granulocyte Percent A 0.3 % (0-0.5); Lymphocytes Absolute Auto 0.86 K/mm3 (0.9-3.2); Lymphocytes Percent Auto 25.2 % (18.3-44.2); Mean Corpuscular HGB Conc 33.3 g/dl (32-36); Mean Corpuscular Hemoglobin 31.1 pg (26-34); Mean Corpuscular Volume 93.2 fl (80-100); Mean Platelet Volume 9.7 fl (7.4-10.4); Monocytes Absolute Auto 0.3 K/mm3 (0.1-0.6); Monocytes Percent Auto 8.2 % (2.6-8.5); Neutrophils Absolute Auto 2.1 K/mm3 (1.3-6.7); Neutrophils Percent Auto 60.4 % (45.5-73.1); Platelet Count Result 143 k/mm3 (150-375); Red Blood Count 3.83 M/mm3 (4.2-5.4); Red Cell Distribution Width 13.8 % (11.5-14.5); White Blood Count 3.4 K/mm3 (4.5-10.0)
[2024-08-20 08:30] LABS: Alanine Aminotransferase 16 U/L (6-35); Albumin Level 4.3 g/dL (3.5-5.1); Alkaline Phosphatase 58 U/L (38-126); Anion Gap 6 mmol/L (4-12); Aspartate Amino Transferase 22 U/L (14-36); Bilirubin,Total 0.5 mg/dL (0.2-1.3); Blood Urea Nitrogen 25 mg/dL (7-17); Calcium 9.4 mg/dL (8.4-10.2); Carbon Dioxide 30 mmol/L (22-30); Chloride 104 mmol/L (98-107); Cholesterol 169 mg/dL (0-200); Estimated Glomerular Filt Rate 52; Glucose 103 mg/dL (65-110); HDL Direct 67 mg/dL; Potassium 3.9 mmol/L (3.4-5.0); Sodium 140 mmol/L (137-145); Triglycerides 87 mg/dL (<150)
[2024-08-20 08:40] LABS: LDL Cholesterol Direct 58 mg/dL
== END 2024-08-20 07:21 | disposition home or self-care (01) ==
PROVIDERS: PCP Family Medicine; Visit Provider Family Medicine
DX: I10 Essential (primary) hypertension (principal); E55.9 Vitamin D deficiency, unspecified; G62.9 Polyneuropathy, unspecified; D86.9 Sarcoidosis, unspecified; R53.1 Weakness
CPT/HCPCS: 36415; 80053; 80061; 82306; 82607; 84443; 85025

== ENCOUNTER 2024-08-26 12:10 | Outpatient (CLI) | payer MEDICARE, SELFPAY ==
--- NOTE | ~2024-08-26 | XR_ITS ---
EXAMINATION: XR knee RT 3V DATE: 08/26/2024 12:33 INDICATION: Pain in right knee. TECHNIQUE: 3 views of right knee on 4 radiographs were obtained. COMPARISON: None. FINDINGS: Alignment is normal. No fracture. There is moderate osteoarthritis of lateral compartment a nd mild osteoarthritis of medial and patellofemoral compartments. There is a small knee joint effusio n. IMPRESSION: 1. Moderate right knee osteoarthritis. 2. Small right knee joint effusion. Reviewed, dictated and finalized at location A.
--- OUTSIDE RECORDS SUMMARY | 2024-08-26 14:01 | XMS_ITS | Continuity of Care Document ---
Author Organization [facility] Address [address] [place] [address] [address] [place] [address] Phone Care Team Providers Care Examination Scorer Name Role Phone Charles TOMLINSON MD, Jules [...] Date Provider Providers Copied on Encounter Ophthalmology [facility], [address] [place] [address], [id number], tel:[phone] [address] [place] [address] No Information 4 Charles Vicente. [address], [address], [place], [place], [id number] , [place]. tel:[phone] Referring Provider: Jules Soto MD P, [address], [place], [address] . tel:[phone] Op[facility], [address] [place] [address], [place], [id number], tel:[phone] [address] [place] [address] No Information 4 Charles Vicente. [address], [address] [place] [address], [id number] , [place]. tel:[phone] Referring Provider: Jules Murray, [address], [place], [address] . tel:[phone] [facility], [address] [place] [address], [id number], [place] tel:[phone] 478 [facility] No Information 4 Charles Vicente. [address], [place], [place], [id number] , [place]. tel:[phone] Referring Provider: Jules Murray, [address], [place], [address] . tel:[phone] [facility], [address] [place] [address], [id number], tel:[phone] 47 [facility] No Information 4 Charles Vicente. [address], [place], [place], [id number] , [place]. [phone] Referring Provider: Jules Soto MD P, [address], [place], [address] . tel:[phone] [facility], [address] [place] [address], [id number], tel:[phone] 8 [facility] No Information 3 Charles Vicente. [address], [place], [place], [id number] , [place]. [phone] Referring Provider: Jules Murray, [address], [place], [address] . tel:[phone] OFFICE/OUTPA TIENT VISIT, [facility], [address] [place] [address], [id number], tel:[phone] 478 [facility] No Information 3 Charles Vicente. [address] [place] [address], [place], [place], [id number] , [place]. tel:[phone] Referring Provider: Jules Murray, [address] [place] [address], [place], [address] . tel:[phone] Family History Family Member Type Diagnosis Age [...]
--- OUTSIDE RECORDS SUMMARY | 2024-08-26 14:01 | XMS_ITS | Clinical Summary ---
Author Organization [facility] Address [address] [place] [address] Care Team Providers Care Bench Machine Operator Name Role Phone Geovanni Hoffman MD Primary Care Provider [phone] Allergies No known active allergies Medications ALPRAZolam [...] daily. Active fluticasone propionate (FLONASE) 50 mcg/spray [place], Suspension nasal inhaler USE 2 SPRAY(S) IN EACH NOSTRIL ONCE DAILY 04/06/2020 Active Active Problems Problem Noted Date Diagnosed Date HTN (hypertension), benign 10/23/2017 Heart palpitations 10/23/2017 Enlarged lymph nodes 10/23/2017 B-cell lymphoma of intra-abdominal lymph nodes 0 10/23/2017 Follicular lymphoma 10/23/2017 Encounters Date Type Department Care Team Description 08/21/2024 External Device Data [facility] ABSTRACTION Provider, Abstract 08/21/2024 External Device Data [facility] ABSTRACTION Provider, Abstract 08/10/2024 External Device Data [facility] ABSTRACTION Provider, Abstract 08/09/2024 External Device Data [facility] ABSTRACTION Provider, Abstract 07/23/2024 External Device Data [facility] ABSTRACTION Provider, Abstract 07/22/2024 2:30 PM CAKE WASHER Office Visit [facility] [address] [place] [address] Linden Diaz MD Follicular lymphoma, unspecified follicular lymphoma type, unspecified body region (CMS/HCC) (Primary Dx) 07/18/2024 Orders Only [facility] and [facility] [address] [place] [address] Linden Diaz MD Follicular lymphoma, unspecified follicular [...] Comments Blood Pressure 147/84 07/22/2024 2:55 PM CAKE WASHER Pulse 62 07/22/2024 2:52 PM CAKE WASHER Temperature 36.4 C (97.5 F) 07/22/2024 2:52 PM CAKE WASHER Respiratory Rate 15 07/22/2024 2:52 PM CAKE WASHER Oxygen Saturation 94% 07/22/2024 2:52 PM CAKE WASHER Inhaled Oxygen Concentration - - Weight 72.9 kg (160 lb 12.8 oz) 07/22/2024 2:52 PM CAKE WASHER Height 174 cm (5' 8.5 ) 05/19/2021 2:00 PM CAKE WASHER Body Mass Index 24.09 05/19/2021 2:00 PM CAKE WASHER Plan of Treatment Upcoming Encounters Date Type Department Care Team (Late st Contact Info) Description 07/22/2025 3:30 PM CAKE WASHER Office Visit [facility] - [place] [address] [facility] [address] [place] [address] Linden Diaz MD [address] [facility] [address] [place] [address] Health Maintenance Due Date Last Done Comments DTAP/TDAP/TD VACCINES (1 - Tdap) 1959 PNEUMOCOCCAL VACCINE 50+ YEARS (1 of 2 - PCV) 11/02/18 58 ZOSTER VACCINE (1 of 2) 1957 OSTEOPOROSIS SCREENING 11/03/2003 RSV VACCINE (60+ or ) (1 - 1-dose 75+ series) 2013 INFLUENZA VACCINE (#1) 2024 Medicare Advantage ([place]) Prev entative Visit/Annual Wellness Visit 06/05/2024 [place] [address] AETNA O [facility] AETNA PPO MCR Care Teams Bench Machine Operator Relationship Specialty Start Date End Date Geovanni Hoffman MD PCP - General Family Practice 10/23/17
--- OUTSIDE RECORDS SUMMARY | 2024-08-26 14:01 | XMS_ITS ---
Author Organization [facility] Address [address] [facility] [place] [address] Care Team Providers Care Bumper Machine Operator Name Role Phone zzzzMigration, zzzzProvider Unavailable Unav ailable REASON FOR VISIT EMR-Woody Encounters Encounter Location Date Provider Diagnosis [facility] [address] [facility] [address] [place] [address] 03/25/2023 zzzzProvider zzzzMigration Plan Of Treatment No Information Progress Notes * Mana YANCEY MDOB: [birth year] (83 yo F)Acc No.[id number]:03/25/2023 Patient: Finn FELDMAN Mana Pryor :1940 A ge:82 Y S ex:Female Address:[address] [place] [address] Subjective: * Chief Complaints: * E MR-Woody * Medical History: * Surgical History: * Hospitalization/Major Diagno stic Procedure: * Medications: Objective: * Vitals: * Physical Examination: Assessment: Plan: * Treatment: * Procedure Codes: * true * Date: Generated for Printi ng/Faxing/eTransmitting on: 0 08/26/2024 02:01 PM CDT
--- OUTSIDE RECORDS SUMMARY | 2024-08-26 14:02 | XMS_ITS | Patient Health Record ---
Author Organization [facility] Address [address] [facility] [address] [place] [address] Support Name Relationship Address Phone Mana Singleton Guarantor Unknown [phone] Reason For Referral No Information Plan Of Treatment No Information
--- OUTSIDE RECORDS SUMMARY | 2024-08-26 14:02 | XMS_ITS ---
Author Organization [facility] judit Address [address] [facility] [address] [place] [address] Care Team Providers Care Antique Furniture Reproducer Name Role Phone zzzzMigration, zzzzProvider Unavailable Unav ailable REASON FOR VISIT EMR-Wodoy Encounters Encounter Location Date Provider Diagnosis [facility] [address] [facility] [address] [place] [address] 03/26/2023 zzzzProvider zzzzMigration Plan Of Treatment No Information Progress Notes * Mana YANCEY MDOB: [birth year] (83 yo F)Acc No.[id number]:03/26/2023 Patient: Finn FELDMAN Mana Pryor :1940 A ge:82 Y S ex:Female Address:[address] [place] [address] Subjective: * Chief Complaints: * E MR-Woody * Medical History: * Surgical History: * Hospitalization/Major Diagno stic Procedure: * Medications: Objective: * Vitals: * Physical Examination: Assessment: Plan: * Treatment: * Procedure Codes: * true * Date: Generated for Printi ng/Faxing/eTransmitting on: 0 08/26/2024 02:01 PM CDT
--- OUTSIDE RECORDS SUMMARY | 2024-08-26 14:02 | XMS_ITS | Encounter Summary ---
Author Organization [facility] Address [address] [place] [address] Care Team Providers Care Transportation Lead Name Role Phone Geovanni Hoffman MD Primary Care Provider +1- [phone] Encounter Details Date Type Department Care Team ([facility] Contact Info) Description 03/28/2018 Chart Note [facility] Radiation Therapy [address] [place] [address] [place] [address] [place] [address] Social History Tobacco Use Types [...] (Late Contact Info) Description 07/22/2025 3:30 PM ATTRACTION WORKER Office Visit [facility] Oncology and Hematology - Darius [address] [facility] [address] [place] [address] Linden Diaz MD [address] [facility] [address] [place] [address] documented as of this encounter Visit Diagnoses Not on filedocumented in this encounter Care Teams Transportation Lead Relationship Specialty Start Date End Date Geovanni Hoffman MD PCP - General Family Practice 10/23/17 documented as of this encounter
--- OUTSIDE RECORDS SUMMARY | 2024-08-26 14:02 | XMS_ITS | Encounter Summary ---
Author Organization [facility] Address [address] [facility] [place] [address] Care Team Providers Care Cigarette Package Examiner Name Role Phone Unavailable Primary Care Provider Unavailabl e Encounter Details Date Type Department Care Team (Late st Contact Info) Description 10/05/2017 Lab Requisition [facility] Care Pathology Lab [address] [place] [address] Ryder Yi MD [address] [place] [address] Social History Tobacco Use Types [...] CDT) Case Report Surgical Pathology Report Case: [id number] Authorizing Provider: Ryder Yi MD Collected: 10/04/2017 01:55 PM Pathologist: Sharon Calvo MD Received: 10/05/2017 01:56 PM Specimen: Soft Tissue Mass, OSC: [id number] 10/06/2017 10:26 AM CDT [facility] Final Diagnosis Retroperitoneal mass, needle core biopsy (OSC [id number], 10/04/17): - Follicular lymphoma, as sampled. - [...] A deeper H&E-stained level prepared in the [facility] Department of Pathology confirms these findings. Immunohistochemistry is performed in the [facility] Department of Pathology with appropriately reactive controls to further characterize the immunoarchitecture. The majority of lymphocytes are positive for CD20. The CE53-kzelzzln B-lymphocytes are also positive for CD10 and BCL2. CD3 highlights background scattered T-lymphocytes. CD21 shows small follicular dendritic cell meshworks in the B-cell nodules. Concurrent flow cytometry ([id number]) shows a LT79-htubjyxg mature B-cell lymphoma. In summary, the retroperitoneal mass is involved by a tumor best classified as follicular lymphoma. In the needle core biopsy there is no significant centroblast population identified; however, in the context of a larger mass, an associated higher grade lymphoma cannot be excluded. Clinical correlation is required. SAUL/XAVI/xavi 10/06/2017 10:26 AM [facility] PATH[facility] Clinical History The patient is a 76 year old woman with low back pain. On imaging, a soft tissue mass was detected in the retroperitoneum. 10/06/2017 10:26 AM [facility] Materials Received Received are 2 slides and 1 block labeled as Mana Tolbert and S [id number] along with a copy of the outside pathology report. [place] [address]. All materials are returned to the referring institution, along with a copy of our final report. 10/06/2017 10:26 AM [facility] Disclaimer The performance characteristics of all immunohistochemical and indirect immunofluorescence stains (if any) cited in this report were determined by the Histopathology Laboratory of [facility]. Some of these tests were developed [...] the attending (teaching) pathologist. 10/06/2017 10:26 AM [facility] Synoptic Report NON-HODGKIN LYMPHOMA/LYMPHOID [...] CD10, and BCL-2. 10/06/2017 10:26 AM T [facility] PATHOLOGY LAB Embedded Images 10/06/2017 10:26 AM [facility] Pathology/Cytolo gy SOFT TISSUE MASS / Unknown 10/04/2017 1:55 PM CDT 10/05/2017 1:56 PM CDT Ryder Yi MD LAB - PATHOLOGY/CYTO LOGY ORDERABLES Performing Organization Address [facility]/State/[facility] Co de Phone Number [facility] PATHOLOGY LAB [address] [phone] documented in this encounter Visit Diagnoses Not on filedocumented in this encounter
--- OUTSIDE RECORDS SUMMARY | 2024-08-26 14:02 | XMS_ITS | Clinical Summary ---
Author Organization [facility] Address [address] [facility] [address] [place] [address] Care Team Providers Care Payroll Master Name Role Phone Unavailable Primary Care Provider Unavailabl e Source Comments [facility],non-owned Affiliates and Associated Physician Practices is amultiple site organization consisting of ambulatory clinics and hospital sitesin [place], [place], [place] and [place]. This disclosure is being madepursuant to the Care Everywhere program and may not contain all information available regarding this patient. Last updated 18.[facility] Social History Tobacco Use Types Packs/Day Years [...]
--- OUTSIDE RECORDS SUMMARY | 2024-08-26 14:02 | XMS_ITS | Encounter Summary ---
Author Organization [facility] Address [address] [place] [address] Care Team Providers Care Record Keeper Name Role Phone Unavailable Primary Care Provider Unavailabl e Encounter Details Date Type Department Care Team (Latest Contact Info) Description 10/06/2017 Lab Requisition [facility] Care Pathology Lab [address] [place] [address] Ryder Yi MD [address] [place] [address] Other nonspecific lymphadenitis Social History Tobacco [...] AM CDT) Case Report Flow Cytometry Case: [id number] Authorizing Provider: Ryder Yi MD Collected: 10/04/2017 11:57 AM Pathologist: Sharon Calvo MD Received: 10/06/2017 09:05 AM Specimen: Peritoneal Biopsy, RETROPERITONEAL MASS 10/06/2017 10:01 AM [facility]T [facility] Final Diagnosis Retroperitoneal mass, Flow cytometric immunophenotypic analysis: - WS13-ufgnghro mature B-cell lymphoma. - Paucicellular and reduced [...] the flow cytometry specimen is reviewed for air quality specialist purposes. The retroperitoneal biopsy is paucicellular and has reduced viability but shows involvement by a QN35-akdryfrf mature B-cell lymphoma. Correlation with clinical findings and the concurrent tissue biopsy ([facility]; [id number]) is required. These findings were discussed with Dr. Yamileth Yi at 1:55 p.m. On 10/05/[address] Dmitry Tapia. SAUL/XAVI/xavi 10/06/2017 10:01 AM [facility] PATHOLOG[facility] Flow Cytometry Results Differential Result Comment Flow Cell Count /uL 320 Total Viability % 50.0 Lymphocytes % 80 Dim CD45 Region % 6 Monocytes % 4 Granulocytes % 5 10/06/2017 10:01 AM [facility] PATH[facility] Reason for test Other nonspecific lymphadenitis 10/06/2017 10:01 AM [facility] Client Specimen ID # [id number] 10/06/2017 10:01 AM [facility] Number of markers 16 were performed. A Flow CD3 A Flow CD10 A Flow CD20 A Flow CD23 A Flow CD2 A Flow CD4 A Flow CD1a A Flow CD5 A Flow CD19 A Flow CD34 A Flow CD45 A Flow CD7 A Flow CD8 A Flow CD30 A [place]+CD19+ A Lambda+CD19+ 10/06/2017 10:01 AM [facility] PATHOLOG[facility] LAB Disclaimer Test performed at [facility], [address] [place] [address], [address]. *The established laboratory minimum viability is 70%. [...] PATHOLOGY LAB Embedded Images 10:01 AM CDT [facility] PATH[facility] LAB Pathology/Cytolo gy PERITONEAL BIOPSY SPECIMEN / Unknown 10/04/2017 11:57 AM CDT 10/06/2017 9:05 AM CDT Ryder Yi MD LAB - PATHOLOGY/CYTO LOGY ORDERABLES Performing Organization Address City/State/[facility] Co de Phone Number [facility] PATHOLOGY LAB [address] [phone] documented in this encounter Visit Diagnoses Diagnosis Other nonspecific lymphadenitis documented in this encounter
== END 2024-08-26 12:11 | disposition home or self-care (01) ==
PROVIDERS: PCP Family Medicine; Visit Provider Family Medicine
DX: M17.11 Unilateral primary osteoarthritis, right knee (principal); M25.461 Effusion, right knee
CPT/HCPCS: 73562

== ENCOUNTER 2024-09-04 10:00 | Outpatient (CLI) | payer MEDICARE, SELFPAY ==
--- OUTSIDE RECORDS SUMMARY | 2024-09-04 11:12 | XMS_ITS | Encounter Summary ---
Author Organization [facility] Address [address] [place] [address] Care Team Providers Care Crystal Grower Name Role Phone Unavailable Primary Care Provider Unavailabl e Encounter Details Date Type Department Care Team (Late st Contact Info) Description 10/05/[address] [facility] Care Pathology Lab [address] [place] [address] Ryder Yi MD [address] [place] [address] Social History Tobacco Use Types [...] CDT) Case Report Surgical Pathology Report Case: [id number] Authorizing Provider: Ryder Yi MD Collected: 10/04/2017 01:55 PM Pathologist: Sharon Calvo MD Received: 10/05/2017 01:56 PM Specimen: Soft Tissue Mass, OSC: [id number] 10/06/2017 10:26 AM CDT [facility] Final Diagnosis Retroperitoneal mass, needle core biopsy (OSC [id number], 10/04/17): - Follicular lymphoma, as sampled. - [...] A deeper H&E-stained level prepared in the [facility] Department of Pathology confirms these findings. Immunohistochemistry is performed in the [facility] Department of Pathology with appropriately reactive controls to further characterize the immunoarchitecture. The majority of lymphocytes are positive for CD20. The DF22-eioukwox B-lymphocytes are also positive for CD10 and BCL2. CD3 highlights background scattered T-lymphocytes. CD21 shows small follicular dendritic cell meshworks in the B-cell nodules. Concurrent flow cytometry ([id number]) shows a PI86-wesprwrn mature B-cell lymphoma. In summary, the retroperitoneal mass is involved by a tumor best classified as follicular lymphoma. In the needle core biopsy there is no significant centroblast population identified; however, in the context of a larger mass, an associated higher grade lymphoma cannot be excluded. Clinical correlation is required. SAUL/XAVI/xavi 10/06/2017 10:[address] [facility] PATH[facility] LAB Clinical History The patient is a 76 year old woman with low back pain. On imaging, a soft tissue mass was detected in the retroperitoneum. 10/06/2017 10:[address] [facility] PATH[facility] Materials Received Received are 2 slides and 1 block labeled as Mana Tolbert and S [id number] along with a copy of the outside pathology report. [place] [address]. All materials are returned to the referring institution, along with a copy of our final report. 10/06/2017 10:[address] [facility] PATH[facility] Disclaimer The performance characteristics of all immunohistochemical and indirect immunofluorescence stains (if any) cited in this report were determined by the Histopathology Laboratory of [facility]. Some of these tests were developed [...] the attending (teaching) pathologist. 10/06/2017 10:[address] [facility] PATH[facility] Synoptic Report NON-HODGKIN LYMPHOMA/LYMPHOID [...] CD10, and BCL-2. 10/06/2017 10:[address] [facility] PATHOLOG[facility] LAB Embedded Images 10/06/2017 10:[address] [facility] PATH[facility] LAB Pathology/Cytolo gy SOFT TISSUE MASS / Unknown 10/04/2017 1:55 PM CDT 10/05/2017 1:56 PM CDT Ryder Yi MD LAB - PATHOLOGY/CYTO LOGY ORDERABLES Performing Organization Address [facility]/State/[facility] Co de Phone Number [facility] PATHOLOG[facility] LAB [address] [phone] documented in this encounter Visit Diagnoses Not on filedocumented in this encounter
--- OUTSIDE RECORDS SUMMARY | 2024-09-04 11:12 | XMS_ITS ---
Author Organization [facility] Address [address] [facility] [address] [place] [address] Care Team Providers Care Volleyball Commentator Name Role Phone zzzzMigration, zzzzProvider Unavailable Unav ailable REASON FOR VISIT EMR-Woody Encounters Encounter Location Date Provider Diagnosis [facility] [address] [facility] [address] [place] [address] 03/26/2023 zzzzProvider zzzzMigration Plan Of Treatment No Information Progress Notes * Mana YANCEY MDOB: 9 (83 yo F)Acc No.[id number]:03/26/2023 Patient: Finn FELDMAN Mana Pryor :1940 A ge:82 Y S ex:Female Address:[address] [place] [address] Subjective: * Chief Complaints: * E MR-Woody * Medical History: * Surgical History: * Hospitalization/Major Diagno stic Procedure: * Medications: Objective: * Vitals: * Physical Examination: Assessment: Plan: * Treatment: * Procedure Codes: * true * Date: Generated for Printi ng/Faxing/eTransmitting on: 0 09/04/2024 11:12 AM CDT
--- OUTSIDE RECORDS SUMMARY | 2024-09-04 11:12 | XMS_ITS | Clinical Summary ---
Author Organization [facility] Address [address] [place] [address] Care Team Providers Care Trading Floor Operator Name Role Phone Geovanni Hoffman MD Primary Care Provider +1- [phone] Allergies No known active allergies Medications ALPRAZolam [...] daily. Active fluticasone propionate (FLONASE) 50 mcg/spray [place], Suspension nasal inhaler USE 2 SPRAY(S) IN [...] STL ABSTRACTION Provider, Abstract 07/22/2024 2:30 PM CEMENT CAR DUMPER Office Visit [facility] Oncology and Hematology [facility] [address] [place] [address] Linden Diaz MD Follicular lymphoma, unspecified follicular lymphoma type, unspecified body region (CMS/HCC) (Primary Dx) 07/18/2024 Orders Only [facility] Oncology and [facility] [address] [place] [address] Linden Diaz MD Follicular lymphoma, unspecified follicular [...] Comments Blood Pressure 147/84 07/22/2024 2:55 PM CEMENT CAR DUMPER Pulse 62 07/22/2024 2:52 PM CEMENT CAR DUMPER Temperature 36.4 C (97.5 F) 07/22/2024 2:52 PM CEMENT CAR DUMPER Respiratory Rate 15 07/22/2024 2:52 PM CEMENT CAR DUMPER Oxygen Saturation 94% 07/22/2024 2:52 PM CEMENT CAR DUMPER Inhaled Oxygen Concentration - - Weight 72.9 kg (160 lb 12.8 oz) 07/22/2024 2:52 PM CEMENT CAR DUMPER Height 174 cm (5' 8.5 ) 05/19/2021 2:00 PM CEMENT CAR DUMPER Body Mass Index 24.09 05/19/2021 2:00 PM CEMENT CAR DUMPER Plan of Treatment Upcoming Encounters Date Type Department Care Team (Late st Contact Info) Description 07/22/2025 3:30 PM CEMENT CAR DUMPER Office Visit [facility] Oncology and Hematology - Darius [address] [facility] [address] [place] [address] Linden Diaz MD [address] [facility] [address] [place] [address] Health Maintenance Due Date Last Done Comments DTAP/TDAP/TD VACCINES (1 - Tdap) 1957 PNEUMOCOCCAL VACCINE 50+ YEARS (1 of 2 - PCV) 11/02/18 58 ZOSTER VACCINE (1 of 2) 1957 OSTEOPOROSIS SCREENING 11/03/2003 RSV VACCINE (60+ or ) (1 - 1-dose 75+ series) 2013 INFLUENZA VACCINE (#1) 2024 Medicare Advantage ([place]) Prev entative Visit/Annual Wellness Visit 06/05/2024 [place] [address] AETNA O [facility] AETNA PPO MCR Care Teams Trading Floor Operator Relationship Specialty Start Date End Date Geovanni Hoffman MD PCP - General Family Practice 10/23/17
--- OUTSIDE RECORDS SUMMARY | 2024-09-04 11:12 | XMS_ITS | Clinical Summary ---
Author Organization [facility] Address [address] [facility] [address] [place] [address] Care Team Providers Care Pre Coder Name Role Phone Unavailable Primary Care Provider Unavailabl e Source Comments [facility],non-owned Affiliates and Associated Physician Practices is amultiple site organization consisting of ambulatory clinics and hospital sitesin [place], [place], [place] and [place]. This disclosure is being madepursuant to the Care Everywhere program and may not contain all information available regarding this patient. Last updated 18.[facility] Social History Tobacco Use Types Packs/Day Years [...]
--- OUTSIDE RECORDS SUMMARY | 2024-09-04 11:12 | XMS_ITS | Encounter Summary ---
Author Organization [facility] Address [address] [facility] [place] [address] Care Team Providers Care Temple Marker Name Role Phone Unavailable Primary Care Provider Unavailabl e Encounter Details Date Type Department Care Team (Latest Contact Info) Description 10/06/2017 Lab Requisition [facility] Care Pathology Lab [address] [place] [address] Ryder Yi MD [address] [place] [address] Other nonspecific lymphadenitis Social History Tobacco [...] AM CDT) Case Report Flow Cytometry Case: [id number] Authorizing Provider: Ryder Yi MD Collected: 10/04/2017 11:57 AM Pathologist: Sharon Calvo MD Received: 10/06/2017 09:05 AM Specimen: Peritoneal Biopsy, RETROPERITONEAL MASS 10/06/2017 10:01 AM CDT [facility] Final Diagnosis Retroperitoneal mass, Flow cytometric immunophenotypic analysis: - CC05-qgllnmyd mature B-cell lymphoma. - Paucicellular and reduced [...] cytometry specimen is reviewed for quality assurance clerk purposes. The retroperitoneal biopsy is paucicellular and has reduced viability but shows involvement by a PL32-kfhrfqtn mature B-cell lymphoma. Correlation with clinical findings and the concurrent tissue biopsy ([facility]; [id number]) is required. These findings were discussed with Dr. Yamileth Yi at 1:55 p.m. On 10/05/[address] Dmitry Tapia. SAUL/XAVI/xavi 10/06/2017 10:[address] [facility] PATH[facility] Flow Cytometry Results Differential Result Comment Flow Cell Count /uL 320 Total Viability % 50.0 Lymphocytes % 80 Dim CD45 Region % 6 Monocytes % 4 Granulocytes % 5 10/06/2017 10:[address] [facility] PATH[facility] Reason for test Other nonspecific lymphadenitis 10/06/2017 10:[address] [facility] PATH[facility] Client Specimen ID # [id number] 10/06/2017 10:[address] [facility] PATH[facility] Number of markers 16 were performed. A Flow CD3 A Flow CD10 A Flow CD20 A Flow CD23 A Flow CD2 A Flow CD4 A Flow CD1a A Flow CD5 A Flow CD19 A Flow CD34 A Flow CD45 A Flow CD7 A Flow CD8 A Flow CD30 A [place]+CD19+ A Lambda+CD19+ 10/06/2017 10:[address] [facility] PATHOLOG[facility] LAB Disclaimer Test performed at [facility], [address] [place] [address], [address]. *The established laboratory minimum viability is 70%. [...] PATHOLOGY LAB Embedded Images 10:01 AM CDT [facility] PATHOLOG[facility] LAB Pathology/Cytolo gy PERITONEAL BIOPSY SPECIMEN / Unknown 10/04/2017 11:57 AM CDT 10/06/2017 9:05 AM CDT Ryder Yi MD LAB - PATHOLOGY/CYTO LOGY ORDERABLES Performing Organization Address City/State/[facility] Co de Phone Number [facility] PATHOLOG[facility] LAB [address] [phone] documented in this encounter Visit Diagnoses Diagnosis Other nonspecific lymphadenitis documented in this encounter
--- OUTSIDE RECORDS SUMMARY | 2024-09-04 11:12 | XMS_ITS ---
Author Organization [facility] Address [address] [facility] [address] [place] [address] Care Team Providers Care Flour Mixer Helper Name Role Phone zzzzMigration, zzzzProvider Unavailable Unav ailable REASON FOR VISIT EMR-Woody Encounters Encounter Location Date Provider Diagnosis [facility] [address] [facility] [address] [place] [address] 03/25/2023 zzzzProvider zzzzMigration Plan Of Treatment No Information Progress Notes * Mana YANCEY MDOB: [birth year] (83 yo F)Acc No.[id number]:03/25/2023 Patient: Finn FELDMAN Mana Pryor :1940 A ge:82 Y S ex:Female Address:[address] [place] [address] Subjective: * Chief Complaints: * E MR-Woody * Medical History: * Surgical History: * Hospitalization/Major Diagno stic Procedure: * Medications: Objective: * Vitals: * Physical Examination: Assessment: Plan: * Treatment: * Procedure Codes: * true * Date: Generated for Printi ng/Faxing/eTransmitting on: 0 09/04/2024 11:12 AM CDT
--- OUTSIDE RECORDS SUMMARY | 2024-09-04 11:13 | XMS_ITS | Encounter Summary ---
Author Organization [facility] Address [address] [place] [address] Care Team Providers Care Store Gift Wrap Associate Name Role Phone Geovanni Hoffman MD Primary Care Provider +1- [phone] Encounter Details Date Type Department Care Team ([facility] Contact Info) Description 03/28/2018 Chart Note [facility] Radiation Therapy [address] [place] [address] [place] [address] [place] [address] Social History Tobacco Use Types [...] (Late Contact Info) Description 07/22/2025 3:30 PM DESSERT CUP MACHINE FEEDER Office Visit [facility] Oncology and Hematology - Darius [address] [facility] [address] [place] [address] Linden Diaz MD [address] [facility] [address] [place] [address] documented as of this encounter Visit Diagnoses Not on filedocumented in this encounter Care Teams Store Gift Wrap Associate Relationship Specialty Start Date End Date Geovanni Hoffman MD PCP - General Family Practice 10/23/17 documented as of this encounter
--- OUTSIDE RECORDS SUMMARY | 2024-09-04 11:13 | XMS_ITS | Continuity of Care Document ---
Author Organization [facility] Address [address] [place] [address] [address] [place] [address] Phone Care Team Providers Care Die Press Operator Name Role Phone Charles TOMLINSON MD, Jules [...] Date Provider Providers Copied on Encounter Ophthalmology [facility], [address] [place] [address], [id number], tel:[phone] [address] [place] [address] No Information 4 Charles Vicente. [address], [address], [place], [place], [id number] , [place]. tel:[phone] Referring Provider: Jules Soto MD P, [address], [place], [address] . tel:[phone] Ophthalmology [facility], [address] [place] [address] [address], [place], [id number], tel:[phone] [address] [place] [address] No Information 4 Charles Vicente. [address], [address] [place] [address], [id number] , [place]. tel:[phone] Referring Provider: Jules Murray, [address], [place], [address] . tel:[phone] [facility], [address] [place] [address], [id number], [place] tel:[phone] 478 [facility] No Information 4 Charles Vicente. [address], [address], [place], [place], [id number] , [place]. tel:[phone] Referring Provider: Jules Murray, [address], [place], [address] . tel:[phone] [facility], [address] [place] [address], [id number], tel:[phone] 47 [facility] No Information 4 Charles Vicente. [address], [address], [place], [place], [id number] , [place]. [phone] Referring Provider: Jules Soto MD P, [address], [place], [address] . tel:[phone] [facility], [address] [place] [address], [id number], tel:[phone] 8 [facility] No Information 3 Charles Vicente. [address], [address], [place], [place], [id number] , [place]. [phone] Referring Provider: Jules Murray, [address], [place], [address] . tel:[phone] OFFICE/OUTPA TIENT VISIT, [facility], [address] [place] [address], [id number], tel:[phone] 478 [facility] No Information 3 Charles Vicente. [address], [address], [place], [place], [id number] , [place]. tel:[phone] Referring Provider: Jules Murray, [address], [place], [address] . tel:[phone] Family History Family Member Type Diagnosis Age [...]
--- OUTSIDE RECORDS SUMMARY | 2024-09-04 11:13 | XMS_ITS | Patient Health Record ---
Author Organization [facility] Address [address] [facility] [address] [place] [address] Support Name Relationship Address Phone Mana Singleton Guarantor Unknown [phone] Reason For Referral No Information Plan Of Treatment No Information
--- NOTE | 2024-09-04 11:30 | NEURO_ITS ---
Impression: # Complains of gait dysfunction. ? # Axonal sensorimotor neuropathy. ? # Needle/EMG exam reveals neurogenic changes. ? # Clinical correlation recommended. Nerve Conduction Studies Anti Sensory Summary Table ?Stim Site NR Peak (ms) P-T Amp (?V) Site1 Site2 Delta-P (ms) Dist (cm) Jacky (m/s) Left Sup Fibular Anti Sensory (Ant Lat Mall)??? NO RESPONSE 14 cm NR 14 cm Ant Lat Mall 16.0 Right Sup Fibular Anti Sensory (Ant Lat Mall)??? NO RESPONSE 14 cm NR 14 cm Ant Lat Mall 16.0 Left Sural Anti Sensory (Lat Mall)??? NO RESPONSE Calf NR Calf Lat Mall 16.0 Right Sural Anti Sensory (Lat Mall)??? NO RESPONSE Calf NR Calf Lat Mall 16.0 Motor Summary Table ?Stim Site NR Onset (ms) O-P Amp (mV) Site1 Site2 Delta-0 (ms) Dist (cm) Jacky (m/s) Left Peroneal Motor (Vastus Med) Ankle ? 4.1 1.8 Popit Ankle 10.4 40.0 38 Popit ? 14.5 1.5 Right Peroneal Motor (Vastus Med) Ankle ? 3.6 2.5 Popit Ankle 10.3 41.0 40 Popit ? 13.9 2.7 Left Tibial Motor (Abd Galvez Brev) Ankle ? 4.3 0.5 Knee Ankle 10.5 44.0 42 Knee ? 14.8 0.4 Right Tibial Motor (Abd Galvez Brev) Ankle ? 3.9 0.7 Knee Ankle 11.3 44.0 39 Knee ? 15.2 0.4 F Wave Studies ?NR F-Lat (ms) L-R F-Lat (ms) Left Peroneal (Mrkrs) (EDB) ? 62.93 0.63 Right Peroneal (Mrkrs) (EDB) ? 62.31 0.63 Left Tibial (Mrkrs) (Abd Hallucis) ? 60.47 1.17 Right Tibial (Mrkrs) (Abd Hallucis) ? 61.64 1.17 EMG ?Side Muscle Nerve Root Ins Act Fibs Amp Dur Recrt Comment Right AntTibialis Dp Br Fibular L4-5 Nml Nml Incr >12ms +1 Right Gastroc Tibial S1-2 Nml Nml Incr >12ms +1 Right Fibularis Long Sup Br Fibular L5-S1 Nml Nml Incr >12ms +1 Right Flex Dig Long Tibial L5-S2 Nml Nml Incr >12ms +1 Right Ext Dig Brev Dp Br Fibular L5, S1 Nml Nml Incr >12ms +2 Right QuadratusFem QuadFemoris L4-5, S1 Nml Nml Incr >12ms +1 Left AntTibialis Dp Br Fibular L4-5 Nml Nml Incr >12ms +1 Left Gastroc Tibial S1-2 Nml Nml Incr >12ms +1 Left Fibularis Long Sup Br Fibular L5-S1 Nml Nml Incr >12ms +1 Left Flex Dig Long Tibial L5-S2 Nml Nml Incr >12ms +1 Left Ext Dig Brev Dp Br Fibular L5, S1 Nml Nml Incr >12ms +2 Left QuadratusFem QuadFemoris L4-5, S1 Nml Nml Incr >12ms +1 MTDD
== END 2024-09-04 10:01 | disposition home or self-care (01) ==
PROVIDERS: PCP Family Medicine; Visit Provider Family Medicine
DX: G62.9 Polyneuropathy, unspecified (principal)
CPT/HCPCS: 95886; 95910

== ENCOUNTER 2024-09-11 12:25 | Outpatient (CLI) | payer MEDICARE, SELFPAY ==
[2024-09-11 12:48] LABS: Basophils Percent Auto 0.8 % (0.2-1.2); Eosinophils Absolute Auto 0.1 K/mm3 (0-0.3); Eosinophils Percent Auto 3.5 % (0-4.4); Hemoglobin 11.5 g/dL (12.0-15.0); Immature Granulocyte Absolute 0.01 K/mm3 (0.00-0.031); Immature Granulocyte Percent A 0.3 % (0-0.5); Lymphocytes Absolute Auto 1.03 K/mm3 (0.9-3.2); Mean Corpuscular HGB Conc 32.9 g/dl (32-36); Mean Corpuscular Hemoglobin 30.9 pg (26-34); Mean Corpuscular Volume 94.1 fl (80-100); Mean Platelet Volume 9.2 fl (7.4-10.4); Monocytes Absolute Auto 0.3 K/mm3 (0.1-0.6); Monocytes Percent Auto 7.8 % (2.6-8.5); Neutrophils Absolute Auto 2.4 K/mm3 (1.3-6.7); Neutrophils Percent Auto 61.6 % (45.5-73.1); Platelet Count Result 129 k/mm3 (150-375); Red Blood Count 3.72 M/mm3 (4.2-5.4); Red Cell Distribution Width 13.7 % (11.5-14.5)
[2024-09-11 13:39] LABS: Anion Gap 6 mmol/L (4-12); Blood Urea Nitrogen 23 mg/dL (7-17); Carbon Dioxide 30 mmol/L (22-30); Chloride 102 mmol/L (98-107); Estimated Glomerular Filt Rate 44; Glucose 101 mg/dL (65-110); Potassium 4.2 mmol/L (3.4-5.0); Sodium 138 mmol/L (137-145)
--- OUTSIDE RECORDS SUMMARY | 2024-09-11 13:39 | XMS_ITS | Clinical Summary ---
Author Organization [facility] Address [address] [place] [address] Care Team Providers Care Supervising Chef Name Role Phone Geovanni Hoffman MD Primary Care Provider [phone] Allergies No known active allergies Medications ALPRAZolam [...] daily. Active fluticasone propionate (FLONASE) 50 mcg/spray [place], Suspension nasal inhaler USE 2 SPRAY(S) IN [...] STL ABSTRACTION Provider, Abstract 07/22/2024 2:30 PM MANAGER HELPDESK Office Visit [facility] Oncology and Hematology [facility] [address] [place] [address] Linden Diaz MD Follicular lymphoma, unspecified follicular lymphoma type, unspecified body region (CMS/HCC) (Primary Dx) 07/18/2024 Orders Only [facility] Oncology and [facility] [address] [place] [address] Linden Diaz MD Follicular lymphoma, unspecified follicular [...] Comments Blood Pressure 147/84 07/22/2024 2:55 PM MANAGER HELPDESK Pulse 62 07/22/2024 2:52 PM MANAGER HELPDESK Temperature 36.4 C (97.5 F) 07/22/2024 2:52 PM MANAGER HELPDESK Respiratory Rate 15 07/22/2024 2:52 PM MANAGER HELPDESK Oxygen Saturation 94% 07/22/2024 2:52 PM MANAGER HELPDESK Inhaled Oxygen Concentration - - Weight 72.9 kg (160 lb 12.8 oz) 07/22/2024 2:52 PM MANAGER HELPDESK Height 174 cm (5' 8.5 ) 05/19/2021 2:00 PM MANAGER HELPDESK Body Mass Index 24.09 05/19/2021 2:00 PM MANAGER HELPDESK Plan of Treatment Upcoming Encounters Date Type Department Care Team (Late st Contact Info) Description 07/22/2025 3:30 PM MANAGER HELPDESK Office Visit [facility] Oncology and Hematology - [place] [address] [facility] [address] [place] [address] Linden Diaz MD [address] [facility] [address] [place] [address] Health Maintenance Due Date Last Done Comments DTAP/TDAP/TD VACCINES (1 - Tdap) 1957 PNEUMOCOCCAL VACCINE 50+ YEARS (1 of 2 - PCV) 11/02/18 58 ZOSTER VACCINE (1 of 2) 1957 OSTEOPOROSIS SCREENING 11/03/2003 RSV VACCINE (60+ or ) (1 - 1-dose 75+ series) 2013 INFLUENZA VACCINE (#1) 2024 Medicare Advantage (VA) Prev entative Visit/Annual Wellness Visit 06/05/2024 [place] [address] AETNA O [facility] AETNA PPO MCR Care Teams Supervising Chef Relationship Specialty Start Date End Date Geovanni Hoffman MD PCP - General Family Practice 10/23/17
--- OUTSIDE RECORDS SUMMARY | 2024-09-11 13:39 | XMS_ITS ---
Author Organization [facility] Address [address] [facility] [address] [place] [address] Care Team Providers Care Paramedical Aide Name Role Phone zzzzMigration, zzzzProvider Unavailable Unav ailable REASON FOR VISIT EMR-Woody Encounters Encounter Location Date Provider Diagnosis [facility] [address] [facility] [facility] [address] [place] [address] 03/25/2023 zzzzProvider zzzzMigration Plan Of Treatment No Information Progress Notes * Mana YANCEY MDOB: 9 (83 yo F)Acc No.[id number]:03/25/2023 Patient: Finn FELDMAN Mana Pryor :1940 A ge:82 Y S ex:Female Address:[address] [place] [address] Subjective: * Chief Complaints: * E MR-Woody * Medical History: * Surgical History: * Hospitalization/Major Diagno stic Procedure: * Medications: Objective: * Vitals: * Physical Examination: Assessment: Plan: * Treatment: * Procedure Codes: * true * Date: Generated for Printi ng/Faxing/eTransmitting on: 0 09/11/2024 01:39 PM CDT
--- OUTSIDE RECORDS SUMMARY | 2024-09-11 13:39 | XMS_ITS ---
Author Organization [facility] Address [address] [facility] [address] [place] [address] Care Team Providers Care Food Service Lead Name Role Phone zzzzMigration, zzzzProvider Unavailable Unav ailable REASON FOR VISIT EMR-Woody Encounters Encounter Location Date Provider Diagnosis [facility] [address] [facility] [address] [place] [address] 03/26/2023 zzzzProvider zzzzMigration Plan Of Treatment No Information Progress Notes * Mana YANCEY MDOB: 9 (83 yo F)Acc No.[id number]:03/26/2023 Patient: Finn FELDMAN Mana Pryor :1940 A ge:82 Y S ex:Female Address:[address] [place] [address] Subjective: * Chief Complaints: * E MR-Woody * Medical History: * Surgical History: * Hospitalization/Major Diagno stic Procedure: * Medications: Objective: * Vitals: * Physical Examination: Assessment: Plan: * Treatment: * Procedure Codes: * true * Date: Generated for Printi ng/Faxing/eTransmitting on: 0 09/11/2024 01:39 PM CDT
--- OUTSIDE RECORDS SUMMARY | 2024-09-11 13:40 | XMS_ITS | Encounter Summary ---
Author Organization [facility] Address [address] [place] [address] Care Team Providers Care Brand Sales Manager Name Role Phone Geovanni Hoffman MD Primary Care Provider [phone] Encounter Details Date Type Department Care Team ([facility] Contact Info) Description 03/28/2018 Chart Note [facility] Radiation Therapy [address] [place] [address] [place] [address] [place] [address] Social History Tobacco Use Types [...] (Late Contact Info) Description 07/22/2025 3:30 PM SENIOR JAVA PROGRAMMER ANALYST Office Visit [facility] Oncology and Hematology - [place] [address] [facility] [address] [place] [address] Linden Diaz MD [address] [facility] [address] [place] [address] documented as of this encounter Visit Diagnoses Not on filedocumented in this encounter Care Teams Brand Sales Manager Relationship Specialty Start Date End Date Geovanni Hoffman MD PCP - General Family Practice 10/23/17 documented as of this encounter
--- OUTSIDE RECORDS SUMMARY | 2024-09-11 13:40 | XMS_ITS | Patient Health Record ---
Author Organization [facility] Address [address] [facility] [address] [place] [address] Support Name Relationship Address Phone Mana Singleton Guarantor Unknown [phone] Reason For Referral No Information Plan Of Treatment No Information
--- OUTSIDE RECORDS SUMMARY | 2024-09-11 13:40 | XMS_ITS | Clinical Summary ---
Author Organization [facility] Address [address] [place] [address] Care Team Providers Care Oven Dauber Name Role Phone Unavailable Primary Care Provider Unavailabl e Source Comments [facility],non-owned Affiliates and Associated Physician Practices is amultiple site organization consisting of ambulatory clinics and hospital sitesin [place], [place], [place] and [place]. This disclosure is being madepursuant to the Care Everywhere program and may not contain all information available regarding this patient. Last updated 18.[facility] Social History Tobacco Use Types Packs/Day Years [...] 2013 COVID-19 VACCINE (2023-2 5 season) 2024 DEPRESSION SCREENING 06/05/2024 MEDICARE AWV CALENDAR YEAR 2024 INFLUENZA VACCINE (Season Ended) 2025 HEPATITIS B VACCINE Aged Out No longe [...]
--- OUTSIDE RECORDS SUMMARY | 2024-09-11 13:40 | XMS_ITS | Encounter Summary ---
Author Organization [facility] Address [address] [facility] [place] [address] Care Team Providers Care Media Operator Name Role Phone Unavailable Primary Care Provider Unavailabl e Encounter Details Date Type Department Care Team (Latest Contact Info) Description 10/06/2017 Lab Requisition [facility] Care Pathology Lab [address] [place] [address] Ryder Yi MD [address] [place] [address] Other nonspecific lymphadenitis Social History Tobacco [...] AM CDT) Case Report Flow Cytometry Case: [id number] Authorizing Provider: Ryder Yi MD Collected: 10/04/2017 11:57 AM Pathologist: Sharon Calvo MD Received: 10/06/2017 09:05 AM Specimen: Peritoneal Biopsy, RETROPERITONEAL MASS 10/06/2017 10:01 AM CDT [facility] Final Diagnosis Retroperitoneal mass, Flow cytometric immunophenotypic analysis: - JQ24-[id number] mature B-cell lymphoma. - Paucicellular and reduced [...] the flow cytometry specimen is reviewed for senior quality assurance analyst purposes. The retroperitoneal biopsy is paucicellular and has reduced viability but shows involvement by a SL07-vnmrbrpe mature B-cell lymphoma. Correlation with clinical findings and the concurrent tissue biopsy ([facility]; [id number]) is required. These findings were discussed with Dr. Yamileth Yi at 1:55 p.m. On 10/05/[address] Dmitry Tapia. SAUL/XAVI/xavi 10/06/2017 10:01 AM [facility] PATHOLOGY LAB Flow Cytometry Results Differential Result Comment Flow Cell Count /uL 320 Total Viability % 50.0 Lymphocytes % 80 Dim CD45 Region % 6 Monocytes % 4 Granulocytes % 5 10/06/2017 10:01 AM [facility] PATHOLOGY LAB Reason for test Other nonspecific lymphadenitis 10/06/2017 10:01 AM [facility] PATHOLOGY LAB Client Specimen ID # [id number] 10/06/2017 10:01 AM [facility] PATHOLOGY LAB Number of markers 16 were performed. A Flow CD3 A Flow CD10 A Flow CD20 A Flow CD23 A Flow CD2 A Flow CD4 A Flow CD1a A Flow CD5 A Flow CD19 A Flow CD34 A Flow CD45 A Flow CD7 A Flow CD8 A Flow CD30 A [place]+CD19+ A Lambda+CD19+ 10/06/2017 10:01 AM [facility] PATHOLOGY LAB Disclaimer Test performed at [facility], [address] [place] [address], [address]. *The established laboratory minimum viability is 70%. [...] PATHOLOGY LAB Embedded Images 10:01 AM CDT [facility] PATHOLOGY LAB Pathology/Cytolo gy PERITONEAL BIOPSY SPECIMEN / Unknown 10/04/2017 11:57 AM CDT 10/06/2017 9:05 AM CDT Ryder Yi MD LAB - PATHOLOGY/CYTO LOGY ORDERABLES Performing Organization Address City/State/[facility] Co de Phone Number [facility] PATHOLOGY LAB [address] [phone] documented in this encounter Visit Diagnoses Diagnosis Other nonspecific lymphadenitis documented in this encounter
--- OUTSIDE RECORDS SUMMARY | 2024-09-11 13:40 | XMS_ITS | Continuity of Care Document ---
Author Organization [facility] Address [address] [place] [address] [address] [place] [address] Phone Care Team Providers Care Practice Manager Name Role Phone Charles TOMLINSON MD, Jules [...] Date Provider Providers Copied on Encounter Ophthalmology [facility], [address] [place] [address], [id number], tel:[phone] [address] [place] [address] No Information 4 Charles Vicente. [address], [place], [place], [id number] , [place]. tel:[phone] Referring Provider: Jules Soto MD P, [address], [place], [address] . tel:[phone] Ophthalmology [facility], [address] [place] [address] [address], [id number], tel:[phone] [address] [place] [address] No Information 4 Charles Vicente. [address], [address] [place] [address], [id number] , [place]. tel:[phone] Referring Provider: Jules Murray, [address], [place], [address] . tel:[phone] [facility], [address] [place] [address], [id number], [place] tel:[phone] [facility] No Information 4 Charles Vicente. [address], [place], [place], [id number] , [place]. tel:[phone] Referring Provider: Jules Murray, [address], [place], [address] . tel:[phone] [facility], [address] [place] [address], [id number], tel:[phone] [address] [facility] No Information 4 Charles Vicente. [address], [place], [place], [id number] , [place]. [phone] Referring Provider: Jules Soto MD P, [address], [place], [address] . tel:[phone] [facility], [address] [place] [address], [id number], tel:[phone] [address] [facility] No Information 3 Charles Vicente. [address], [place], [place], [id number] , [place]. [phone] Referring Provider: Jules Murray, [address], [place], [address] . tel:[phone] OFFICE/OUTPA TIENT VISIT, [facility], [address] [place] [address], [id number], tel:[phone] [facility] No Information 3 Charles Vicente. [address], [place], [place], [id number] , [place]. tel:[phone] Referring Provider: Jules Murray, [address], [place], [address] . tel:[phone] Family History Family Member Type Diagnosis Age [...]
--- OUTSIDE RECORDS SUMMARY | 2024-09-11 13:40 | XMS_ITS | Encounter Summary ---
Author Organization [facility] Address [address] [place] [address] Care Team Providers Care Bottle Labeler Name Role Phone Unavailable Primary Care Provider Unavailabl e Encounter Details Date Type Department Care Team (Late st Contact Info) Description 10/05/2017 Lab Requisition [facility] Care Pathology Lab [address] [place] [address] Ryder Yi MD [address] [place] [address] Social History Tobacco Use Types [...] CDT) Case Report Surgical Pathology Report Case: [id number] Authorizing Provider: Ryder Yi MD Collected: 10/04/2017 01:55 PM Pathologist: Sharon Calvo MD Received: 10/05/2017 01:56 PM Specimen: Soft Tissue Mass, OSC: [id number] 10/06/2017 10:26 AM CDT [facility] Final Diagnosis Retroperitoneal mass, needle core biopsy (OSC [id number], 10/04/17): - Follicular lymphoma, as sampled. - [...] A deeper H&E-stained level prepared in the [facility] Department of Pathology confirms these findings. Immunohistochemistry is performed in the [facility] Department of Pathology with appropriately reactive controls to further characterize the immunoarchitecture. The majority of lymphocytes are positive for CD20. The NU95-cznethoj B-lymphocytes are also positive for CD10 and BCL2. CD3 highlights background scattered T-lymphocytes. CD21 shows small follicular dendritic cell meshworks in the B-cell nodules. Concurrent flow cytometry ([id number]) shows a EK06-dchjdmqv mature B-cell lymphoma. In summary, the retroperitoneal mass is involved by a tumor best classified as follicular lymphoma. In the needle core biopsy there is no significant centroblast population identified; however, in the context of a larger mass, an associated higher grade lymphoma cannot be excluded. Clinical correlation is required. SAUL/XAVI/xavi 10/06/2017 10:26 AM [facility] PATHOLOGY LAB Clinical History The patient is a 76 year old woman with low back pain. On imaging, a soft tissue mass was detected in the retroperitoneum. 10/06/2017 10:26 AM [facility] Materials Received Received are 2 slides and 1 block labeled as Mana Tolbert and [id number] along with a copy of the outside pathology report. [place] [address]. All materials are returned to the referring institution, along with a copy of our final report. 10/06/2017 10:26 AM [facility] Disclaimer The performance characteristics of all immunohistochemical and indirect immunofluorescence stains (if any) cited in this report were determined by the Histopathology Laboratory of [facility]. Some of these tests were developed by [...] the attending (teaching) pathologist. 10/06/2017 10:26 AM [facility] PATH[facility] Synoptic Report NON-HODGKIN LYMPHOMA/LYMPHOID [...] CD10, and BCL-2. 10/06/2017 10:26 AM T [facility] PATHOLOGY LAB Embedded Images 10/06/2017 10:26 AM [facility] Pathology/Cytolo gy SOFT TISSUE MASS / Unknown 10/04/2017 1:55 PM CDT 10/05/2017 1:56 PM CDT Ryder Yi MD LAB - PATHOLOGY/CYTO LOGY ORDERABLES Performing Organization Address [facility]/State/[facility] Co de Phone Number [facility] PATHOLOGY LAB [address] [phone] documented in this encounter Visit Diagnoses Not on filedocumented in this encounter
[2024-09-11 13:54] LABS: Vitamin D 25 Hydroxy 49.9 ng/mL
[2024-09-13 08:53] LABS: Thyroid Peroxidase Antibodies <1 IU/mL (<9)
== END 2024-09-11 12:26 | disposition home or self-care (01) ==
LOC: ANHLAB 12:26
PROVIDERS: PCP Family Medicine; Visit Provider Family Medicine
DX: E03.9 Hypothyroidism, unspecified (principal); Z79.899 Other long term (current) drug therapy; R79.89 Other specified abnormal findings of blood chemistry; E53.8 Deficiency of other specified B group vitamins; E55.9 Vitamin D deficiency, unspecified
CPT/HCPCS: 36415; 80048; 82306; 82607; 84443; 85025; 86376

== ENCOUNTER 2024-11-12 15:19 | Outpatient (CLI) | payer MEDICARE, SELFPAY ==
--- NOTE | ~2024-11-12 | MM_ITS ---
EXAMINATION: MM screening jaylin BI w fco HISTORY: Screening TECHNIQUE: Craniocaudal and mediolateral oblique 3-D tomosynthesis images were obtained and synthetic 2-D images were generated. CAD analysis was submitted and interpreted. COMPARISON: Comparison to multiple prior studies sequentially, with oldest reviewed study dated 10/2020. BREAST PARENCHYMAL COMPOSITION: Not dense: There are scattered areas of fibroglandular density. FINDINGS: There is no evidence of suspicious mass, calcification, or architectural distortion to sugg est malignancy in either breast. There has been no suspicious interval change. IMPRESSION: 1. No mammographic evidence of malignancy. 2. Recommend routine screening mammography in one year. BI-RADS Category 1: Negative Reviewed, dictated and finalized at location B.
--- OUTSIDE RECORDS SUMMARY | 2024-11-12 16:45 | XMS_ITS | Clinical Summary ---
Author Organization [facility] Address [address] [place] [address] Care Team Providers Care Ventilating Engineer Name Role Phone Unavailable Primary Care Provider Unavailabl e Source Comments [facility],non-owned Affiliates and Associated Physician Practices is amultiple site organization consisting of ambulatory clinics and hospital sitesin [place], [place], [place] and [place]. This disclosure is being madepursuant to the Care Everywhere program and may not contain all information available regarding this patient. Last updated 18.[facility] Social History Tobacco Use Types Packs/Day Years Used Date Smoking Tobacco: Never Assessed Comments Unknown Sex and Gender Information Value Date Recorded Sex Assigned at Not on file Legal Sex Female 12:10 PM CDT Gender Identity Not on file [...] - 1-dose 75+ series) 2013 COVID-19 VACCINE ( - 2023-2 5 season) 2024 DEPRESSION SCREENING 06/05/2024 INFLUENZA VACCINE (Season Ended) 2025 HEPATITIS B [...] on patient's age to complete this topic Insurance [facility] MANAGED MEDICARE ADV
--- OUTSIDE RECORDS SUMMARY | 2024-11-12 16:45 | XMS_ITS | Encounter Summary ---
Author Organization [facility] Address [address] [place] [address] Care Team Providers Care Tower Climber Name Role Phone Unavailable Primary Care Provider Unavailabl e Encounter Details Date Type Department Care Team (Late st Contact Info) Description 10/05/2017 Lab Requisition [facility] Care Pathology Lab [address] [place] [address] Ryder Yi MD [address] [place] [address] Social History Tobacco Use Types Packs/Day [...] CDT) Case Report Surgical Pathology Report Case: [id number] Authorizing Provider: Ryder Yi MD Collected: 10/04/2017 01:55 PM Pathologist: Sharon Calvo MD Received: 10/05/2017 01:56 PM Specimen: Soft Tissue Mass, OSC: [id number] 10/06/2017 10:26 AM CDT [facility] Final Diagnosis Retroperitoneal mass, needle core biopsy (OSC [id number], 10/04/17): - Follicular lymphoma, as sampled. - See interpretation. 10/06/2017 10:26 AM CDT [facility] at 1026 CDT Microscopic Description and Comment Review of the specimen reveals minute fragments of soft tissue infiltrated by small mature lymphocytes arranged in a vaguely nodular pattern. The lymphoid cells are infiltrating skeletal muscle and adipose tissue. There is no significant large cell population identified. No necrosis is seen. A deeper H&E-stained level prepared in the [facility] Department of Pathology confirms these findings. Immunohistochemistry is performed in the [facility] Department of Pathology with appropriately reactive controls to further characterize the immunoarchitecture. The majority of lymphocytes are positive for CD20. The [id number]-[id number] B-lymphocytes are also positive for CD10 and BCL2. CD3 highlights background scattered T-lymphocytes. CD21 shows small follicular dendritic cell meshworks in the B-cell nodules. Concurrent flow cytometry ([id number]) shows a [id number] mature B-cell lymphoma. In summary, the retroperitoneal mass is involved by a tumor best classified as follicular lymphoma. In the needle core biopsy there is no significant centroblast population identified; however, in the context of a larger mass, an associated higher grade lymphoma cannot be excluded. Clinical correlation is required. SAUL/XAVI/xavi 10/06/2017 10:[address] [facility] Clinical History The patient is a 76 year old woman with low back pain. On imaging, a soft tissue mass was detected in the retroperitoneum. 10/06/2017 10:[address] [facility] Materials Received Received are 2 slides and 1 block labeled as Mana Tolbert and [id number] along with a copy of the outside pathology report. [place] [address]. All materials are returned to the referring institution, along with a copy of our final report. 10/06/2017 10:[address] [facility] Disclaimer The performance characteristics of all immunohistochemical and indirect immunofluorescence stains (if any) cited in this report were determined by the Histopathology Laboratory of [facility]. Some of these tests were developed by [...] the attending (teaching) pathologist. 10/06/2017 10:[address] [facility] Synoptic Report NON-HODGKIN LYMPHOMA/LYMPHOID [...] CD20, CD10, and BCL-2. 10/06/2017 10:[address] [facility] Embedded Images 10/06/2017 10:[address] [facility] Pathology/Cytolo gy SOFT TISSUE MASS / Unknown 10/04/2017 1:55 PM CDT 10/05/2017 1:56 PM CDT Ryder Yi MD LAB - PATHOLOGY/CYTOLOGY ORDER YANIV Final Result [facility] PATHOLOGY LAB [address] [phone] documented in this encounter Visit Diagnoses Not on filedocumented in this encounter
--- OUTSIDE RECORDS SUMMARY | 2024-11-12 16:45 | XMS_ITS | Encounter Summary ---
Author Organization [facility] Address [address] [place] [address] Care Team Providers Care Feller Operator Name Role Phone Unavailable Primary Care Provider Unavailabl e Encounter Details Date Type Department Care Team (Latest Contact Info) Description 10/06/2017 Lab Requisition [facility] Care Pathology Lab [address] [place] [address] Ryder Yi MD [address] [place] [address] Other nonspecific lymphadenitis Social History Tobacco [...] AM CDT) Case Report Flow Cytometry Case: [id number] Authorizing Provider: Ryder Yi MD Collected: 10/04/2017 11:57 AM Pathologist: Sharon Calvo MD Received: 10/06/2017 09:05 AM Specimen: Peritoneal Biopsy, RETROPERITONEAL MASS 10/06/2017 10:01 AM CDT [facility] Final Diagnosis Retroperitoneal mass, Flow cytometric immunophenotypic analysis: - [id number] mature B-cell lymphoma. - Paucicellular and reduced viability specimen - See interpretation. 10/06/2017 10:01 AM CDT [facility] at 1001 CDT Flow Cytometry Interpretation The retroperitoneal mass biopsy [...] the flow cytometry specimen is reviewed for customer quality engineer purposes. The retroperitoneal biopsy is paucicellular and has reduced viability but shows involvement by a [id number]-fmlrncjp mature B-cell lymphoma. Correlation with clinical findings and the concurrent tissue biopsy ([facility]; [id number]) is required. These findings were discussed with Dr. Yamileth Yi at 1:55 p.m. On 10/05/[address] Dmitry Tapia. KR/UTILITY AGENT/avp 10/06/2017 10:[address] [facility] Flow Cytometry Results Differential Result Comment Flow Cell Count /uL 320 Total Viability % 50.0 Lymphocytes % 80 Dim CD45 Region % 6 Monocytes % 4 Granulocytes % 5 10/06/2017 10:[address] [facility] Reason for test Other nonspecific lymphadenitis 10/06/2017 10:[address] [facility] Client Specimen ID # [id number] 10/06/2017 10:[address] [facility] Number of markers 16 were performed. A Flow CD3 A Flow CD10 A Flow CD20 A Flow CD23 A Flow CD2 A Flow CD4 A Flow CD1a A Flow CD5 A Flow CD19 A Flow CD34 A Flow CD45 A Flow CD7 A Flow CD8 A Flow CD30 A [place]+CD19+ A Lambda+CD19+ 10/06/2017 10:[address] [facility] Disclaimer Test performed at [facility], [address] [place] [address], [address]. *The established laboratory minimum viability is 70%. [...] complexity clinical testing. 10/06/2017 10:01 AM CDT [facility] PATHOLOG[facility] LAB Embedded Images 10:01 AM CDT [facility] PATH[facility] Pathology/Cytolo gy PERITONEAL BIOPSY SPECIMEN / Unknown 10/04/2017 11:57 AM CDT 10/06/2017 9:05 AM CDT Ryder Yi MD LAB - PATHOLOGY/CYTOLOGY ORDER YANIV Final Result [facility] PATHOLOGY LAB [address] [phone] documented in this encounter Visit Diagnoses Diagnosis Other nonspecific lymphadenitis documented in this encounter
--- OUTSIDE RECORDS SUMMARY | 2024-11-12 16:45 | XMS_ITS | Continuity of Care Document ---
Author Organization [facility] Address [address] [place] [address] [address] [place] [address] Phone Care Team Providers Care Clearance Representative Name Role Phone Charles TOMLINSON MD, Jules [...] Date Provider Providers Copied on Encounter Ophthalmology [facility], [address] [place] [address], [id number], tel:[phone] [address] [place] [address] No Information 4 Charles Vicente. [address], [address], [place], [place], [id number] , [place]. [phone] Referring Provider: Jules Soto MD P, [address], [place], [address] . tel:[phone] Ophthalmology [facility], [address] [place] [address], [place], [id number], tel:[phone] [address] [place] [address] No Information 4 Charles Vicente. [address], [address] [place] [address], [id number] , [place]. tel:[phone] Referring Provider: Jules Murray, [address], [place], [address] . tel:[phone] [facility], [address] [place] [address], [id number], [place] tel:[phone] [facility] No Information 4 Charles Vicente. [address], [address], [place], [place], [id number] , [place]. tel:[phone] Referring Provider: Jules Murray, [address], [place], [address] . tel:[phone] [facility], [address] [place] [address], [id number], tel:[phone] [facility] No Information 4 Charles Vicente. [address], [address], [place], [place], [id number] , [place]. [phone] Referring Provider: Jules Soto MD P, [address], [place], [address] . tel:[phone] [facility], [address] [place] [address], [id number], tel:[phone] [facility] No Information 3 Charles Vicente. [address], [address], [place], [place], [id number] , [place]. [phone] Referring Provider: Jules Murray, [address], [place], [address] . tel:[phone] OFFICE/OUTPA TIENT VISIT, [facility], [address] [place] [address], [id number], tel:[phone] [facility] No Information 3 Charles Vicente. [address], [place], [place], [id number] , [place]. tel:[phone] Referring Provider: Jules Murray, [address], [place], [address] . tel:[phone] Family History Family Member Type Diagnosis Age At Onset No Information Payers Payer name Insurance type Covered alliance party ID Authoriza tion(s) No Information Social History [...]
--- OUTSIDE RECORDS SUMMARY | 2024-11-12 16:45 | XMS_ITS | Encounter Summary ---
Author Organization [facility] Address [address] [place] [address] Care Team Providers Care Freelance Designer Name Role Phone Geovanni Hoffman MD Primary Care Provider [phone] Encounter Details Date Type Department Care Team ([facility] Contact Info) Description 03/28/2018 Chart Note [facility] Radiation Therapy [address] [place] [address] [place] [address] [place] [address] Social History Tobacco Use Types [...] (Late Contact Info) Description 07/22/2025 3:30 PM RESEARCH ASSOCIATE PROFESSOR Office Visit [facility] Oncology and Hematology - [place] [address] [facility] [address] [place] [address] Linden Diaz MD [address] [facility] [address] [place] [address] documented as of this encounter Visit Diagnoses Not on filedocumented in this encounter Care Teams Freelance Designer Relationship Specialty Start Date End Date Geovanni Hoffman MD PCP - General Family Practice 10/23/17 documented as of this encounter
--- OUTSIDE RECORDS SUMMARY | 2024-11-12 16:45 | XMS_ITS | Clinical Summary ---
Author Organization [facility] Address [address] [place] [address] Care Team Providers Care Fish Processing Supervisor Name Role Phone Geovanni Hoffman MD Primary Care Provider [phone] Allergies No known active allergies Medications ALPRAZolam [...] daily. Active fluticasone propionate (FLONASE) 50 mcg/spray [place], Suspension nasal inhaler USE 2 SPRAY(S) IN EACH NOSTRIL ONCE DAILY 04/06/2020 Active Active Problems Problem Noted Date Diagnosed Date HTN (hypertension), benign 10/23/2017 Heart palpitations 10/23/2017 Enlarged lymph nodes 10/23/2017 B-cell lymphoma of intra-abdominal lymph nodes 0 10/23/2017 Follicular lymphoma 10/23/2017 Encounters Date Type Department Care Team Description 11/05/2024 External Device Data STL ABSTRACTION Provider, Abstract 10/29/2024 External Device Data STL ABSTRACTION Provider, Abstract 10/24/2024 External Device Data STL ABSTRACTION Provider, Abstract 10/23/2024 External Device Data STL ABSTRACTION Provider, Abstract 10/22/2024 External Device Data STL ABSTRACTION Provider, Abstract [...] Comments Blood Pressure 147/84 07/22/2024 2:55 PM RAILROAD WORKER Pulse 62 07/22/2024 2:52 PM RAILROAD WORKER Temperature 36.4 C (97.5 F) 07/22/2024 2:52 PM RAILROAD WORKER Respiratory Rate 15 07/22/2024 2:52 PM RAILROAD WORKER Oxygen Saturation 94% 07/22/2024 2:52 PM RAILROAD WORKER Inhaled Oxygen Concentration - - Weight 72.9 kg (160 lb 12.8 oz) 07/22/2024 2:52 PM RAILROAD WORKER Height 174 cm (5' 8.5) 05/19/2021 2:00 PM RAILROAD WORKER Body Mass Index 24.09 05/19/2021 2:00 PM RAILROAD WORKER Plan of Treatment Upcoming Encounters Date Type Department Care Team (Late st Contact Info) Description 07/22/2025 3:30 PM RAILROAD WORKER Office Visit [facility] Oncology and Hematology - [place] [place], [place] [address] Linden Diza MD [address] [facility] [address] [place] [address] Health Maintenance Due Date Last Done Comments DTAP/TDAP/TD VACCINES (1 - Tdap) 1959 PNEUMOCOCCAL VACCINE 50+ YEARS (1 of 2 - PCV) 11/02/18 58 ZOSTER VACCINE (1 of 2) 1957 OSTEOPOROSIS SCREENING 11/03/2003 RSV VACCINE (60+ or ) (1 - 1-dose 75+ series) 2013 INFLUENZA VACCINE (#1) 2024 [facility] Care Teams Fish Processing Supervisor Relationship Specialty Start Date End Date Geovanni Hoffman MD PCP - General Family Practice 10/23/17
== END 2024-11-12 15:20 | disposition home or self-care (01) ==
PROVIDERS: PCP Family Medicine; Visit Provider Family Medicine
DX: Z12.31 Encounter for screening mammogram for malignant neoplasm of breast (principal)
CPT/HCPCS: 77063; 77067

== ENCOUNTER 2024-11-30 19:10 | Emergency (ER) | payer MEDICARE, SELFPAY ==
--- NOTE | ~2024-11-30 | CT_ITS ---
EXAMINATION: CT brain wo con DATE: 11/30/2024 19:57 INDICATION: fall, . TECHNIQUE: Computed tomography (CT) of the head was performed without intravenous contrast. The mA wa s adjusted according to patient size. Iterative reconstruction technique was employed. The dose-lengt h product was 605.33 mGy-cm. COMPARISON: 05/08/2012. FINDINGS: No acute intracranial hemorrhage or extra-axial fluid collection. No hydrocephalus, mass, or herniation. No acute ischemic infarct. Unremarkable dural venous sinus attenuation. No acute osseous abnormality. Left TMJ osteoarthritis. Opacification of the sphenoid sinuses with surrounding osseous thickening, left mastoid fluid, the re maining aerated spaces are clear. Mild atrophy and chronic white matter change. Atherosclerotic intracranial calcification. Bilateral l ens replacements. IMPRESSION: No acute intracranial process. CT findings suggestive of chronic sphenoid sinusitis. Reviewed, dictated and finalized at location K. IMPRESSION: No acute intracranial process. CT findings suggestive of chronic sphenoid sinus itis.
--- NOTE | ~2024-11-30 | XR_ITS ---
EXAM: XR hip LT 2V w AP pelvis DATE: 11/30/2024 20:06 HISTORY: fall L hip . COMPARISON: 07/18/2017. FINDINGS: Normal mineralization. Comminuted left intertrochanteric fracture, with 1.7 cm medial disp lacement, 6 mm anterior displacement, medial angulation, and displacement of the intertrochanter frag ment. No lytic or blastic lesion. Degenerative changes in the lumbar spine and bilateral hips. Cholec ystomy clips. No erosion or periosteal change. Soft tissues within normal limits. IMPRESSION: Comminuted, displaced and angulated left intertrochanteric fracture. Reviewed, dictated and finalized at location K. IMPRESSION: Comminuted, displaced and angulated left intertrochanteric fracture .
--- NOTE | ~2024-11-30 | XR_ITS ---
EXAM: XR knee LT 3V DATE: 11/30/2024 20:06 HISTORY: fall, knee pain . COMPARISON: 05/08/2012. FINDINGS: Osteopenia. No fracture or dislocation. No lytic or blastic lesion. Left knee osteoarthrit ic arthritis, severe in the medial compartment. No erosion or periosteal change. Soft tissues within normal limits. IMPRESSION: No acute osseous finding in the left knee. Reviewed, dictated and finalized at location K.
--- NOTE | ~2024-11-30 | CT_ITS ---
EXAMINATION: CT cervical spine wo con DATE: 11/30/2024 19:57 INDICATION: fall TECHNIQUE: Computed tomography (CT) of the cervical spine was performed without intravenous contrast. Automated exposure control and iterative reconstruction technique were employed. The dose-length pro duct was 605.33 mGy-cm. COMPARISON: None. FINDINGS: Vertebral Body Alignment: Trace anterolistheses at C3-4 and C5-6, presumably secondary to degenerativ e changes. Craniocervical and atlantoaxial alignment: Moderate degenerative change. Alignment intact. Osseous structures/fracture: No evidence of a lytic or blastic process in the visualized spine. No e vidence of acute fracture. C6-7 fusion. Multilevel facet fusions. Cervical soft tissues: The paraspinal soft tissues planes are maintained. Degenerative changes: Degenerative changes, without severe neural foraminal or central canal narrowin g. IMPRESSION: No acute fracture or traumatic malalignment in the cervical spine. Reviewed, dictated and finalized at location K.
[2024-11-30 19:13] VITALS: BP 130/73; PULSE 66; RESP 18; TEMP 36.6; O2SAT 95
--- NOTE | 2024-11-30 19:23 | ED_ITS ---
HPI - Extremity Injury (Lower) General Chief Complaint: Extremity Injury, Lower Stated Complaint: knee pain Time Seen by Provider: 11/30/24 19:13 Source: patient and EMS Mode of arrival: EMS Limitations: no limitations History of Present Illness HPI Narrative: Patient presents with left leg/knee pain after a ground level fall. She was walking in her driveway which she states is a bit uneven and she tripped. Did not lose consciousness. Not on anticoagulation. She reports she is having some paresthesias although she has mild neuropathy at baseline. Denies any head or neck injury. Last oral intake was 4:00 p.m.. Denies any previous surgical intervention or hardware. EMS noted some swelling throughout the leg and knee. They applied a splint and administered 25 mcg of fentanyl. Having pain superior to left knee as well as at her hip although she points to proximal femur. Related Data Home Medications ?Medication ?Instructions ?Recorded ?Confirmed ?Last Taken ?Type calcium 600 mg (as 1 tablet PO DAILY 03/26/19 11/21/24 12/07/20 History carbonate)-vitamin D3 5 mcg (200 unit) tablet (Calcium 600 + D(3)) ascorbic acid (vitamin C) 250 mg 250 mg PO DAILY 12/02/20 11/21/24 12/07/20 History chewable tablet Allergies Allergy/AdvReac Type Severity Reaction Status Date / Time aspirin Allergy Unknown low Verified 11/30/24 19:19 platelets Cephalosporins AdvReac Mild SEVERE Verified 11/30/24 19:19 DIARRHEA cefixime AdvReac Unknown Nausea Verified 11/30/24 19:19 [facility] Past Medical History Medical History Neuropathy Right knee pain Wears hearing aid Essential hypertension, benign Surgical History Surgical History History of intestinal surgery (~1996) History of cholecystectomy (~1996) History of tubal ligation (~1978) History of appendectomy (~1973) History of removal of Port-a-Cath Family History Family History Mother Cerebrovascular accident, Onset Age: 86 Father Family history of lung cancer, Onset Age: 65 Family history of coronary artery disease Other Family history of tuberculosis Hypertension Social History Social History Smoking status: Never smoker Alcohol intake: never Lack of Transportation: No Lack of Food: Never True Current Housing: I Have Housing Concerned About Future Housing: No Difficulty Paying Gas/Electric Bills: No Difficulty Paying for Meds: No Currently Unemployed: No Education: Master's Degree or Higher Difficulty w/ Childcare or Family Care: No Living arrangements: with friend(s) Spiritual care concerns: No Exam 2 Narrative: GENERAL: Well-appearing, well-nourished, and in no acute distress. HEAD: Normocephalic, atraumatic. EYES: Non injected, non icteric ENT: Nares clear, no rhinorrhea or epistaxis. Gross auditory acuity intact. NECK: Supple. No meningismus. CHEST: Speaking in full sentences. No respiratory distress. HEART: Regular rate and rhythm. . ABDOMEN: Soft, nondistended. No rigidity or guarding. Not peritoneal EXTREMITIES: Left knee in commercial splint EMS applied. There is swelling throughout the exposed area of the left knee and femur seen although compartments are soft. Able demonstrate left ankle dorsiflexion/plantar flexion/eversion/inversion. L leg short and rotated. SKIN: Warm, dry, no rash. No ecchymosis in area of skin that is visible. NEURO: No focal deficits. Alert and oriented. Answering questions. Following commands. Normal speech without aphasia or dysarthria. Sensation intact throughout the left leg. PSYCH: Normal mood and affect. Course Vital Signs Vital signs: Vital Signs Temperature 97.8 F 11/30/24 19:13 Pulse Rate 66 11/30/24 19:13 Respiratory Rate 18 11/30/24 19:13 Blood Pressure 130/73 11/30/24 19:13 Pulse Oximetry 95 11/30/24 19:13 Oxygen Delivery Room Air 11/30/24 19:13 Temperature 97.9 F 11/30/24 21:44 Pulse Rate 82 11/30/24 21:44 Respiratory Rate 17 11/30/24 21:44 Blood Pressure 150/72 H 11/30/24 21:44 Pulse Oximetry 96 11/30/24 21:44 Oxygen Delivery Room Air 11/30/24 19:13 MDM - Extremity Injury (Lower) MDM Narrative Medical decision making narrative: Patient presents with left leg/knee/hip pain after a ground level fall in her driveway. In the emergency department they are afebrile with vital signs within normal limits. Imaging with fracture as below. Patient informed of this at bedside. She states she has never broken a bone in her 84 years. Will obtain labs and place urinary catheter given she will be immobile. Patient discussed with orthopedic surgeon at 8:25 p.m.. Recommends NPO at midnight, admit to hospitalist, and will do surgery in the morning. Dr. Troy then calls again around 8:30pm. Notes that this is a reverse obliquity fracture and he is sole orthopedist on this weekend without assistance to perform a repair of this nature. Recommends transfer. Patient has received care through [facility] as well as [facility] before, the latter in the . Not on anticoagulation. FABIOLA 4pm. clinical data coordinator initially spoke with [facility] [place] orthopedic surgeon Dr George who reviewed images and notes that patient will require tertiary [facility] (versus [facility]). [facility] patient access coordinator notes that their protocol because this is trauma would be ED to ED transfer as a result. Spoke with ED attending Dr Pedro at [facility] ED (ED to ED trauma transfer, level 3) at 21:05 who accepts. Will arrange transportation. Patient updated at bedside about this at 9:07p.m.. Normocytic anemia thrombocytopenia both stable from previous. Mild hyperglycemia without anion gap acidosis. Renal function appears stable compared to previous. Differential Diagnosis Differential diagnosis: Likely acute internal derangement of knee, fracture of femur, fracture of hip and other (Hematoma) Lab Data Attestation: I reviewed the patient's lab results. 11/30/24 20:45 11/30/24 20:45 Labs: Lab Results 11/30/24 Range/Units 20:45 WBC 6.8 (4.5-10.0) K/mm3 RBC 3.58 L (4.2-5.4) M/mm3 Hgb 10.9 L (12.0-15.0) g/dL Hct 33.2 L (37.0-47.0) % MCV 92.7 (80-100) fl MCH 30.4 (26-34) pg MCHC 32.8 (32-36) g/dl RDW 13.7 (11.5-14.5) % Plt Count 135 L (150-375) k/mm3 MPV 9.4 (7.4-10.4) fl Immature Gran % (Auto) 0.4 (0-0.5) % Neut % (Auto) 79.0 H (45.5-73.1) % Lymph % (Auto) 10.5 L (18.3-44.2) % [place] % (Auto) 7.2 (2.6-8.5) % Eos % (Auto) 2.2 (0-4.4) % Baso % (Auto) 0.7 (0.2-1.2) % Lymph # (Auto) 0.72 L (0.9-3.2) K/mm3 [place] # (Auto) 0.5 (0.1-0.6) K/mm3 Eos # (Auto) 0.2 (0-0.3) K/mm3 Baso # (Auto) 0.1 (0.0-0.1) K/mm3 Abs Immat Gran (auto) 0.03 (0.00-0.031) K/mm3 Absolute Neuts (auto) 5.4 (1.3-6.7) K/mm3 Absolute Nucleated RBC 0.000 (0.0-0.012) K/mm3 Nucleated RBC % 0.0 (0.0-0.2) % PT 15.2 H (11.1-14.7) Seconds INR 1.2 APTT 27.8 (22.3-36.8) Seconds Sodium 135 L (137-145) mmol/L Potassium 3.9 (3.4-5.0) mmol/L Chloride 101 (98-107) mmol/L Carbon Dioxide 27 (22-30) mmol/L Anion Gap 7 (4-12) mmol/L BUN 24 H (7-17) mg/dL Creatinine 1.01 H (0.7-1.0) mg/dL Estim Creat Clear Calc 36 ml/min Estimated GFR 52 L (59 - ) Glucose 147 H (65-110) mg/dL Calcium 9.3 (8.4-10.2) mg/dL Total Bilirubin 0.5 (0.2-1.3) mg/dL AST 27 (14-36) U/L ALT 17 (6-35) U/L Alkaline Phosphatase 52 (38-126) U/L Total Protein 6.7 (6.3-8.2) g/dL Albumin 4.4 (3.5-5.1) g/dL Imaging Data Attestation: I personally reviewed and interpreted this imaging study as follows: My impression: Obvious femur fracture on my independent interpretation of L hip x-ray Left knee imaging without abnormalities. Radiologist's impression: Impressions Head CT 11/30/24 20:01 IMPRESSION: No acute intracranial process. CT findings suggestive of chronic sphenoid sinusitis. Cervical Spine CT 11/30/24 20:09 IMPRESSION: No acute fracture or traumatic malalignment in the cervical spine. Hip/Pelvis X-Ray 11/30/24 20:13 IMPRESSION: Comminuted, displaced and angulated left intertrochanteric fracture. Knee X-Ray 11/30/24 20:15 IMPRESSION: No acute osseous finding in the left knee. ECG Data EKG #1: Attestation: I personally reviewed and interpreted this ECG as follows: ECG completion date: 11/30/24 ECG completion time: 21:27 Interpretation: Normal sinus rhythm at a rate of 84 beats per minute. NM interval 199. QRS 102. QT/QTC 328/369. Good R-wave progression across the precordial leads. No T-wave inversions. Discharge Plan Discharge Clinical Impression: Fall, Chronic sphenoidal sinusitis, Closed intertrochanteric fracture of left femur, Normocytic anemia, Thrombocytopenia Patient Disposition: Acute Care Hospital Condition: Stable Patient Language: Indonesian Prescriptions: No Action calcium carbonate-vitamin D3 [Calcium 600 + D(3)] 600 mg(1,500mg) -200 unit Tablet 1 tablet PO DAILY hydrochlorothiazide 12.5 mg tablet See Rx Instructions .ROUTE .COMPLEX Qty: 90 2RF Dose Instruction: Take 1 tablet by mouth once daily Rx Instructions: Take 1 tablet by mouth once daily ascorbic acid (vitamin C) 250 mg Tablet,Chewable 250 mg PO DAILY meloxicam 7.5 mg tablet 7.5 mg PO DAILY Qty: 90 3RF amitriptyline 25 mg tablet 25 mg PO HS Qty: 90 1RF alprazolam 0.25 mg tablet 0.25 mg PO TID PRN (Reason: anxiety) Qty: 90 1RF losartan 25 mg tablet 12.5 mg PO DAILY Qty: 45 1RF gabapentin 300 mg capsule 300 mg PO QHS Qty: 90 0RF omeprazole 20 mg capsule,delayed release(DR/EC) 20 mg PO DAILY Qty: 90 1RF Follow-up/Referrals: Layla Hoffman MD [Primary Care Provider] -
[2024-11-30] MEDS: HYDROcodone/acetaminophen (*CRX) 5-325 MG TABLET 1 TAB PO (20:03)
--- NOTE | 2024-11-30 20:30 | ECG_ITS ---
Test Date: 2024-11-30 21:27:14 Measurements Intervals [place] Rate: 84 P: 76 AR: 199 QRS: -12 QRSD: 102 T: 72 QT: 328 QTc: 389 Interpretive Statements SINUS RHYTHM NONSPECIFIC ST & T-WAVE ABNORMALITY- ANTEROLAT/HIGH LAT LEADS BASELINE ARTIFACT- I, II, III, AVR, AVL, AVF, V4-V6 BORDERLINE ECG No previous ECG available for comparison Electronically Signed On 12-01-2024 07:55:59 CDT by Alejandro Monsalve D.O.
[2024-11-30 20:51] LABS: Basophils Absolute Auto 0.1 K/mm3 (0.0-0.1); Basophils Percent Auto 0.7 % (0.2-1.2); Eosinophils Absolute Auto 0.2 K/mm3 (0-0.3); Eosinophils Percent Auto 2.2 % (0-4.4); Hematocrit 33.2 % (37.0-47.0); Hemoglobin 10.9 g/dL (12.0-15.0); Immature Granulocyte Absolute 0.03 K/mm3 (0.00-0.031); Immature Granulocyte Percent A 0.4 % (0-0.5); Lymphocytes Absolute Auto 0.72 K/mm3 (0.9-3.2); Lymphocytes Percent Auto 10.5 % (18.3-44.2); Mean Corpuscular HGB Conc 32.8 g/dl (32-36); Mean Corpuscular Hemoglobin 30.4 pg (26-34); Mean Corpuscular Volume 92.7 fl (80-100); Mean Platelet Volume 9.4 fl (7.4-10.4); Monocytes Absolute Auto 0.5 K/mm3 (0.1-0.6); Monocytes Percent Auto 7.2 % (2.6-8.5); Neutrophils Absolute Auto 5.4 K/mm3 (1.3-6.7); Platelet Count Result 135 k/mm3 (150-375); Red Blood Count 3.58 M/mm3 (4.2-5.4); Red Cell Distribution Width 13.7 % (11.5-14.5); White Blood Count 6.8 K/mm3 (4.5-10.0)
--- NOTE | 2024-11-30 20:54 | PC.NURSE ---
EMS's splint removed per LEANA Lea. Patient requesting pain medications. ERP notified.
[2024-11-30 21:03] LABS: INR 1.2; Prothrombin Time 15.2 Seconds (11.1-14.7)
[2024-11-30 21:04] LABS: Partial Thromboplastin Time 27.8 Seconds (22.3-36.8)
[2024-11-30] MEDS: HYDROmorphone HCL INJ (*CRX) 2 MG/ML VIAL 0.5 MG IV PUSH (21:05)
[2024-11-30 21:07] LABS: Alanine Aminotransferase 17 U/L (6-35); Albumin Level 4.4 g/dL (3.5-5.1); Alkaline Phosphatase 52 U/L (38-126); Anion Gap 7 mmol/L (4-12); Aspartate Amino Transferase 27 U/L (14-36); Bilirubin,Total 0.5 mg/dL (0.2-1.3); Blood Urea Nitrogen 24 mg/dL (7-17); Calcium 9.3 mg/dL (8.4-10.2); Carbon Dioxide 27 mmol/L (22-30); Chloride 101 mmol/L (98-107); Estimated CRCL calculation 36 ml/min; Estimated Glomerular Filt Rate 52; Glucose 147 mg/dL (65-110); Potassium 3.9 mmol/L (3.4-5.0); Sodium 135 mmol/L (137-145); Total Protein 6.7 g/dL (6.3-8.2)
[2024-11-30 21:34] VITALS: BP 150/76; PULSE 85; RESP 17; O2SAT 96; O2SAT 97
--- NOTE | 2024-11-30 21:34 | PC.NURSE ---
Report called to ERIKA Moore at [facility] at [phone].
[2024-11-30 21:44] VITALS: BP 150/72; PULSE 82; RESP 17; TEMP 36.6; O2SAT 96
[2024-11-30] MEDS: ONDANSETRON INJ 4 MG/2 ML VIAL IV PUSH (21:53)
== END 2024-11-30 22:01 | disposition short-term general hospital (02) ==
PROVIDERS: Emergency Provider Student in an Organized Health Care Education/Training Program; PCP Family Medicine
DX: S72.142A Displaced intertrochanteric fracture of left femur, initial encounter for closed fracture (principal); J32.3 Chronic sphenoidal sinusitis; D64.9 Anemia, unspecified; D69.6 Thrombocytopenia, unspecified; I10 Essential (primary) hypertension; G62.9 Polyneuropathy, unspecified; Z90.49 Acquired absence of other specified parts of digestive tract; Z79.899 Other long term (current) drug therapy; W01.0XXA Fall on same level from slipping, tripping and stumbling without subsequent striking against object, initial encounter
CPT/HCPCS: 36415; 51702; 70450; 72125; 73502; 73562; 80053; 85025; 85610; 85730; 93005; 96374; 96375; 99285; A9270; J1171; J2405

== ENCOUNTER 2025-01-30 12:39 | Outpatient (CLI) | payer MEDICARE, SELFPAY ==
--- OUTSIDE RECORDS SUMMARY | 2013-09-06 02:05 | XMS_ITS | Continuity of Care Document ---
Author Organization Ophthalmology [facility] Address [address] [place] [address] [address] [place] [address] Phone Care Team Providers Care Mica Plate Layer Name Role Phone Charles TOMLINSON MD, Jules Unavailable Unavailable Procedures Procedure Date AFTER CATARACT LASER SURGERY AFTER CATARACT LASER SURGERY POSTOP FOLLOW-UP VISIT CATARACT SURG W/IOL, 1 STAGE CATARACT SURG W/IOL, 1 STAGE OFFICE/OUTPATIENT VISIT, NEW OPHTHALMIC BIOMETRY OPHTHALMIC BIOMETRY SPECIAL EYE EXAM, INITIAL SPECIAL EYE EXAM, INITIAL Advance Directives Directive Yes / No Effective Date File Name No Information Encounters Encounter Description Practice Location Reason(s) For Visit Diagnoses Date Provider Providers Copied on Encounter Ophthalmology [facility], [address] [place] [address], [id number], tel:[phone] [address] [place] [address] No Information 4 Charles Vicente. [address], [address], [place], [place], [id number] , [place]. tel:[phone] Referring Provider: Jules Soto MD P, [address], [place], [address] . tel:[phone] Ophthalmology [facility], [address] [place] [address] [address], [place], [id number], tel:[phone] [address] [place] [address] No Information 4 Charles Vicente. [address], [address] [place] [address], [id number] , [place]. tel:[phone] Referring Provider: Jules Murray, [address], [place], [address] . tel:[phone] [facility], [address] [place] [address], [id number], [place] tel:[phone] [facility] No Information 4 Charles Vicente. [address], [address], [place], [place], [id number] , [place]. tel:[phone] Referring Provider: Jules Murray, [address], [place], [address] . tel:[phone] [facility], [address] [place] [address], [id number], tel:[phone] [facility] No Information 4 Charles Vicente. [address], [address], [place], [place], [id number] , [place]. [phone] Referring Provider: Jules Soto MD P, [address], [place], [address] . tel:[phone] [facility], [address] [place] [address], [id number], tel:[phone] [facility] No Information 3 Charles Vicente. [address], [address], [place], [place], [id number] , [place]. [phone] Referring Provider: Jules Murray, [address], [place], [address] . tel:[phone] OFFICE/OUTPA TIENT VISIT, [facility], [address] [place] [address], [id number], tel:[phone] [facility] No Information 3 Charles Vicente. [address], [address], [place], [place], [id number] , [place]. tel:[phone] Referring Provider: Jules Murray, [address], [place], [address] . tel:[phone] Family History Family Member Type Diagnosis Age At Onset No Information Payers Payer name Insurance type Covered democrat ID Authoriza tion(s) No Information Social History Type Description Quantity Date Captured Comments Sex Female Smoking Status No Information Chief Complaint And Reason For Visit No Information Reason For Referral Reason For Referral No Information History Of Present Illness Encounter Date Complaint History Of Prese nt Illness No Information Functional Status Date Functional Assessmen t No Information Instructions Date Instruction Additional Infor mation No Information Assessments Type Assessment Date No Information Patient Care Teams Name Effective Dates (start - stop) Status Members No Information
--- NOTE | ~2025-01-30 | XR_ITS ---
EXAM/ PROCEDURE: XR femur LT min 2V - 01/30/2025 13:05 CDT HISTORY: 84 years old Female with closed displaced subtrochanteric fracture. FALL NOVEMBER 30 COMPARISON: None available TECHNIQUE: Four view(s) FINDINGS/ IMPRESSION: There are no fractures or dislocations.Joint space narrowing, subchondral sclerosis, subchondral cyst formation and osteophyte formation, compatible with mild osteoarthritis. Status post ORIF of proximal femoral fracture. Intact hardware and no loosening. Reviewed, dictated and finalized at location N.
--- OUTSIDE RECORDS SUMMARY | 2025-01-30 12:48 | XMS_ITS | Clinical Summary ---
Author Organization [facility] Address [address] [place] [address] Care Team Providers Care Design Engineering Technician Name Role Phone Unavailable Primary Care Provider Unavailabl e Source Comments [facility],non-owned Affiliates and Associated Physician Practices is amultiple site organization consisting of ambulatory clinics and hospital sitesin [place], [place], [place] and [place]. This disclosure is being madepursuant to the Care Everywhere program and may not contain all information available regarding this patient. Last updated 18.[facility] Social History Tobacco Use Types Packs/Day Years [...] (2023-2 5 season) 2024 DEPRESSION SCREENING 06/05/2024 INFLUENZA VACCINE (#1) 2025 HEPATITIS B VACCINE Aged Out No [...] patient's age to complete this topic Insurance [facility] MANAGED MEDICARE ADV
--- OUTSIDE RECORDS SUMMARY | 2025-01-30 12:48 | XMS_ITS | Clinical Summary ---
Author Organization [facility] al Address [address] [place] [address] Care Team Providers Care Plate Take Out Worker Name Role Phone Geovanni Hoffman MD Primary Care Provider [phone] Allergies No known active allergies Medications hydroCHLOROthia zide 12.5 mg tablet Take 1 tablet (12.5 mg total) by mouth daily Active amitriptyline (ELAVIL) 25 mg tablet Take 1 tablet (25 mg total) by mouth nightly at bedtime. Active calcium carbonate-vitam in D3 (CALTRATE 600 + D) 1500 mg (600 mg elemental) -400 units per tablet Take 1 tablet by mouth daily Active gabapentin (NEURONTIN) 300 mg capsule Take 1 capsule (300 mg total) by mouth nightly 11/11/2024 Active losartan (COZAAR) 25 mg tablet Take 0.5 tablets (12.5 mg total) by mouth daily 11/07/2024 Active omeprazole (PriLOSEC) 20 mg capsule Take 1 capsule (20 mg total) by mouth daily 11/20/2024 Active senna (SENOKOT) 8.6 mg tabletIndicatio ns:constipation Take 1 tablet by mouth 2 (two) times a day 12/06/2024 Active polyethylene glycol (MIRALAX) 17 gram/dose bulk powderIndicatio ns:constipation Take 17 g by mouth daily 12/06/2024 Active cyclobenzaprine (FLEXERIL) 10 mg tabletIndicatio ns:Muscle Spasm Take 1 tablet (10 mg total) by mouth 3 (three) times a day as needed for muscle spasms 12/06/2024 Active acetaminophen (TYLENOL) 325 mg tabletIndicatio ns:Pain Take 2 tablets (650 mg total) by mouth every 6 (six) hours as needed for pain 12/06/2024 Active oxyCODONE (ROXICODONE) 5 mg immediate release tabletIndicatio ns:Pain Take 0.5 tablets (2.5 mg total) by mouth every 4 (four) hours as needed for pain 12/06/2024 Active Active Problems Patient Care Coordination No te Formatting of this note migh t be different from the original. Mechanism of Injury:SLMF 11/30/24 Dx: L pertrochanteric femur fx Surgeries: 12/01/24: CMN L pertrochanteric femur fx ([facility]ier) HDC: 12/06/24 Dc'd to Inpatient Rehab Do NOT lift greater than 10 pounds for 4 weeks. WBAT all extremities Should walk at least 3 times per day and as tolerated. You may climb stairs with assistance Suture Removal at first f/u visit in clinic Left lower extremity incision: Keep incisions clean and dry Clean with plain soap and water and pat dry daily Cover with dry gauze dressing, change daily and as needed Pain Mgmt: Neurontin 300mg Oxycodone 5mg Immediate Release Tylenol 650mg Flexeril 10mg Upcoming Clinic Visit: 01/10/25 WBAT Suture Removal (Orders Placed) Does Insurance Qualify for In Clinic PT? No [employer] Medicare Problem Noted Date Diagnosed Date ABLA (acute blood loss anemia) 12/03/2024 Assessment & Plan (12/05/2024 10:38 AM CDT): - Hgb 7.0 (7.4) - 12/02: Transfused 1 unit prbcs. - 7: Post hgb 9.0 - 2: Post hgb 7.2, No concern for active bleeding. Repeat CBC - 12/05: Hgb 8.5g/dL ALENA (acute kidney injury) 12/03/2024 Assessment & Plan (12/04/2024 11:58 AM CDT): 7/: Cr 1.2 (1.1), 500 LR bolus 7: Cr 0.88 Discharge planning issues 12/02/2024 Assessment & Plan (12/06/2024 9:54 AM CDT): 12/02: POD1 L femur IMN. PT/OT evals today. Hgb 7.4, will trend. DC lord, void trial 12/03: Cr 1.2 (1.1). 500LR bolus. Trend labs. ADD 12/04- recommended for rehab 12/04: Repeat CBC. Pending auth for rehab. 12/05-12/06: Patient is medically stable for discharge, SW/CM updated. Discharge pending insurance authorization Treatment note [x] Acute pain 12/01/2024 Assessment & Plan (12/05/2024 10:38 AM CDT): - Acetaminophen 650 mg Q6h - Gabapentin 300mg TID - Flexeril 10mg TID PRN - Oxycodone 2.5 mg Q4 PRN GERD (gastroesophageal reflux disease) Assessment & Plan (12/02/2024 9:20 AM CDT): - Home omeprazole. - On pantoprazole ER Closed displaced subtrochanteric fracture of lef t femur 11/30/2024 Assessment & Plan (12/05/2024 10:39 AM CDT): - Orthopedic consult - OR Ortho 12/01 L IMN femur - WBAT LLE - DVT ppx - PT/OT - Bone health referral at hi Follow up with ortho in 3 weeks for suture removal. Does not need XR HTN (hypertension), benign 10/23/2017 Assessment & Plan (12/01/2024 3:03 PM CDT): - Holding home HCTZ 12.5 mg daily, losartan 12.5 mg daily B-cell lymphoma of intra-abdominal lymph nodes 0 10/23/2017 Assessment & Plan (12/01/2024 3:05 PM CDT): Follicular lymphoma stage III with bulky disease s/p RP mass biopsy on 10/04/2017 - Completed treatments and is currently under surveillance Follicular lymphoma 10/23/2017 Enlarged lymph nodes 10/23/2017 Heart palpitations 10/23/2017 Encounters Date Type Department Care Team Description 01/22/2025 Telephone [facility] [address] [facility] 4th Floor [address] [place] [address] Courtney Jeannegeorgi Metcalf Scheduling Appointments 01/10/2025 2:30 PM CDT Office Visit [facility] Orth[facility] [address] [facility] 4th Floor [address] [place] [address] Closed displaced subtrochanteric fracture of left femur, initial encounter (HCC) (Primary Dx) 01/08/2025 Telephone [facility] [address] [facility] 4th Floor [address] [place] [address] Debbi Nunes RN 12/02/2024 Orders Only [facility] Medicine Orthopaedic Surgery [address] [facility] 6th [place] [address] [place] [address] Juvenal Jha MD Closed displaced subtrochanteric fracture of left femur, initial encounter (HCC) (Primary Dx) 12/01/2024 7:30 AM CDT - 12/01/2024 10:10 AM CDT Surgery [facility] [address] [place] [address] Kasi Maier MD INTRAMEDULLARY NAILING FEMUR - ANTEGRADE - INTERTROCHANTERIC 12/01/2024 7:22 AM CDT Anesthesia Event [facility] [address] [place] [address] Charles Christopher MD 11/30/2024 10:32 PM CDT - 12/06/2024 3:42 PM CDT Hospital Encounter [facility] [address] [place] [address] Rashmi Ervin MD McCarron, Weston Michael, MD Entriken, Catherine Anne, MD Closed displaced subtrochanteric fracture of left femur, initial encounter (HCC) (Primary Dx); Closed displaced intertrochanteric fracture of left femur, initial encounter (HCC) Discharge Disposition: Discharge to an IP Rehab facility from Last 3 Months Immunizations Immunization Administration Dates Next Due Influenza, Quadrivalent, Hig h Dose, Preservative Free, Intrr 02/24/2023,02/25/2022,03/01/2021 Influenza, Quadrivalent, Rec ombinant, Egg Free, Preservative Free, Intramuscular 03/18/2019 Influenza, Trivalent, High D ose, Split, Preservative Free, Intramuscular 02/07/2024,02/08/2018 Pneumococcal Conjugate Pcv20 10/05/2022 RSV Vaccine, Pref, Recombina nt, Subunit, Adjuvanted, PF, IM (Arexvy) 07/12/2024,01/19/2023 Td, adsorbed 01/19/2023 ZOSTER Recombinant 03/27/2021,01/22/2021 Medical History Medical History Date Comments PONV (postoperative nausea and vomiting) Social History Tobacco Use Types Packs/Day Years Used Date Smoking Tobacco: Never Passive Smoke Exposure: Never Smokeless Tobacco: Never Tobacco Cessation:Counseling Given: No AUDIT-C Answer Date Recorded Q1: How often do you have a drink containing alcohol? Never 01/10/2025 Q2: How many drinks containi ng alcohol do you have on a typical day when you are drinking? Patient does not drink Q3: How often do you have si x or more drinks on one occasion? Never 01/10/2025 Hunger Vital Sign Answer Date Recorded Within the past 12 months, y ou worried that your food would run out before you got the money to buy more. Never true 01/11/20 25 Within the past 12 months, t he food you bought just didn't last and you didn't have money to get more. Never true 01/10/2025 Personal Safety Answer Date Recorded Have you ever been in or are you currently in a harmful physical or emotional relationship or is someone making you feel afraid or unsafe? Denies 12/03/2024 Comments No Sex and Gender Information Value Date Recorded Sex Assigned at Not on file Legal Sex Female 11:56 AM [employer] Gender Identity Not on file Sexual Orientation Not on file Obstetrics History Last Filed Vital Signs Vital Sign Reading Time Taken Comments Blood Pressure 133/69 12/06/2024 7:28 AM CDT Pulse 90 12/06/2024 7:28 AM CDT Temperature 36.8 C (98.2 F) 12/06/2024 7:28 AM CDT Respiratory Rate 16 12/06/2024 7:28 AM CDT Oxygen Saturation 100% 12/06/2024 7:28 AM CDT Inhaled Oxygen Concentration - - Weight 72.5 kg (159 lb 13.3 oz) 12/01/2024 1:10 PM CDT Height 172.7 cm (5' 8) 12/01/2024 1:10 PM CDT Body Mass Index 24.3 12/01/2024 1:10 PM CDT Plan of Treatment Health Maintenance Due Date Last Done Comments Depression Screening 1940 Osteoporosis Screening-Bone Density Scan 1940 Hepatitis B Screening 1958 Well Visit 65+ 11/03/2003 DTaP/Tdap/Td Vaccine (1 - Tdap) 01/20/2023 Covid-19 Vaccine (2023- season) 2024 02/07/2024, 11/14/2023, 08/13/2023, Additional history exists Influenza Vaccine (#1) 2025 , 02/24/2023, 02/25/2022, Additional history exists Fall Risk Assessment 12/06/2025 12/06/2024 Zoster Vaccine Completed 03/27/2021, 01/22/2021 Pneumococcal vaccine 65+ Completed 10/05/2022 Medical Devices Implanted Type Area Catcher Filter Tip Device Identifier Shelf Expiration Date Model / Serial / Lot Synthes 1.7mm 750mm Crimp Cerclage Cable Orthopedic Stainless Steel 298.801.01s - [id number] Implanted:Qty: 1 on 12/01/2024 by Kasi Maier MD at [facility] Left: Femur Synthes 298.801.01S / / Synthes Tfn-Advanced Lateral Relief Cut 11mm 420mm Cannulated Femoral 04.037.163s - [id number] Implanted:Qty: 1 on 12/01/2024 by Kasi Maier MD at [facility] Left: Femur Synthes I 04.037.163S / / Synthes Screw Bone Locking Cannulated Femoral Proximal Gold Tfn Advance Titanium 10.88w68am 04.038.190s - [id number] Implanted:Qty: 1 on 12/01/2024 by Kasi Maier MD at [facility] Left: Femur Synthes 04.038.190S / / Synthes Screw Bone Locking Cannulated Femoral Proximal Full Thread Light Green 5.0x42mm Titanium 04.045.042 - [id number] Implanted:Qty: 1 on 12/01/2024 by Kasi Maier MD at [facility] Left: Femur Synthes I 04.045.042 / / Synthes Screw Bone Locking Cannulated Femoral Proximal Full Thread Light Green 5.0x48mm Titanium 04.045.048 - [id number] Implanted:Qty: 1 on 12/01/2024 by Kasi Maier MD at [facility] Left: Femur Synthes I 04.045.048 / / Explanted Type Area Catcher Filter Tip Device Identifier Shelf Expiration Date Model / Serial / Lot Synthes Screw Locking Im Nail 5mm 50mm 04.045.050 - [id number] Explanted:Qty: 1 on 12/01/2024 at [facility] Left: Femur Synthes I 04.045.0 50 / / Procedures Procedure Name Priority Date/Time Associated Diagnosis Comments CBC WITHOUT DIFFERENTIAL STAT 12/04/2024 1:43 PM CDT EGFR Routine 12/04/2024 4:53 AM CDT PHOSPHORUS Routine 12/04/2024 4:53 AM CDT MAGNESIUM Routine 12/04/2024 4:53 AM CDT BASIC METABOLIC PANEL Routine 12/04/2024 4:53 AM CDT CBC WITHOUT DIFFERENTIAL Routine 12/04/2024 4:53 AM CDT EGFR Routine 12/03/2024 4:07 AM CDT PHOSPHORUS Routine 12/03/2024 4:07 AM CDT MAGNESIUM Routine 12/03/2024 4:07 AM CDT BASIC METABOLIC PANEL Routine 12/03/2024 4:07 AM CDT CBC WITHOUT DIFFERENTIAL Routine 12/03/2024 4:07 AM CDT TRANSFUSE RED BLOOD CELLS Timed 12/02/2024 8:57 PM CDT B CHECK SAMPLE STAT 12/02/2024 3:35 PM CDT AR CRITICAL CARE ILL/INJURED PATIENT INIT 30-74 MIN Routine 12/02/2024 3:34 PM CDT PREPARE RBC Timed 12/02/2024 3:02 PM CDT URINALYSIS, MICROSCOPIC ONLY STAT 12/02/2024 10:53 AM CDT CBC WITHOUT DIFFERENTIAL STAT 12/02/2024 10:53 AM CDT URINE CULTURE STAT 12/02/2024 10:53 AM CDT URINALYSIS AND REFLEX TO MICROSCOPIC AND CULTURE STAT 12/02/2024 10:53 AM CDT XR ANKLE RIGHT 3 OR MORE VIEWS ED Urgent/IP Urgent 12/02/2024 6:49 AM CDT XR HAND LEFT 3 OR MORE VIEWS ED Urgent/IP Urgent 12/02/2024 6:49 AM CDT EGFR Routine 12/02/2024 4:58 AM CDT PHOSPHORUS Routine 12/02/2024 4:58 AM CDT MAGNESIUM Routine 12/02/2024 4:58 AM CDT BASIC METABOLIC PANEL Routine 12/02/2024 4:58 AM CDT CBC WITHOUT DIFFERENTIAL Routine 12/02/2024 4:58 AM CDT EGFR Routine 12/01/2024 9:37 PM CDT PHOSPHORUS Routine 12/01/2024 9:37 PM CDT MAGNESIUM Routine 12/01/2024 9:37 PM CDT BASIC METABOLIC PANEL Routine 12/01/2024 9:37 PM CDT CBC WITHOUT DIFFERENTIAL Routine 12/01/2024 9:37 PM CDT XR FEMUR LEFT 2 OR MORE VIEWS ED Urgent/IP Urgent 12/01/2024 12:02 PM CDT FL FLUOROSCOPY < 1 HOUR IP Routine 12/02/19 10:26 AM CDT AR AN PROCEDURE PLACEHOLDER Routine 12/01/2024 7:52 AM CDT AR AN EMERGENT ENDOTRACHEAL AIRWAY Routine 12/01/2024 7:52 AM CDT INTRAMEDULLARY NAILING FEMUR - ANTEGRADE - INTERTROCHANTERIC 12/01/2024 7:28 AM CDT Closed displaced subtrochanteric fracture of left femur, initial encounter ([facility]) Case Notes Aleksandar [phone] ECG 12-LEAD STAT 12/01/2024 4:45 AM CDT XR HIP LEFT 1 VIEW ED Urgent/IP Urgent 12/01/2024 2:[address] PELVIS WO CONTRAST ED Urgent/IP Urgent 12/01/2024 1:23 AM CDT EGFR STAT 12/01/2024 12:13 AM CDT DIFFERENTIAL AUTO STAT 12/01/2024 12:13 AM CDT TYPE AND SCREEN STAT 12/01/2024 12:13 AM CDT PROTIME-INR STAT 12/01/2024 12:13 AM CDT APTT STAT 12/01/2024 12:13 AM CDT COMPREHENSIVE METABOLIC PANEL STAT 12/01/2024 12:13 AM CDT CBC WITH AUTO DIFFERENTIAL STAT 12/01/2024 12:13 AM CDT XR HIP LEFT W PELVIS 2 OR 3 VIEWS ED Urgent/IP Urgent 12/01/2024 12:02 AM CDT XR FEMUR LEFT 2 OR MORE VIEWS ED Urgent/IP Urgent 12/01/2024 12:02 AM CDT XR CHEST 1 VIEW ED 12/01/2024 12:02 AM CDT XR KNEE LEFT 1 OR 2 VIEWS ED Urgent/IP Urgent 12/01/2024 12:02 AM CDT from Last 3 Months Results * (ABNORMAL) CBC without differential (12/04/2024 1:43 PM CDT) WBC 6.45 3.80 - 9.90 K/cumm Hgb 8.5(L) 11.9 - 15.5 g/dL [facility] Hct 25.6(L) 35.6 - 45.5 % [facility] Plt 125(L) 150 - 400 K/cumm [facility] MPV 10.2 9.1 - 12.3 fL [facility] RBC 2.74(L) 3.90 - 5.20 M/cumm [facility] MCV 93.4 81.3 - 96.4 fL [facility] MCH 31.0 27.1 - 33.3 pg [facility] MCHC 33.2 32.3 - 35.7 g/dL [facility] RDW CV 14.6 11.1 - 14.9 % [facility] RDW SD 48.2(H) 35.7 - 48.1 fL [facility] NRBC abs 0.00 0.00 - 0.01 K/cumm [facility] Blood 12/04/2024 1:43 PM CDT 12/04/2024 2:00 PM CDT Claire Us NP LAB BLOOD ORDERABLES Fi nal Result Performing Organization Address [facility] Co de Phone Number [facility] [place] [address] * eGFR (12/04/2024 4:53 AM CDT) eGFR 64 >=60 mL/min/1. 73 m2 Comment: Interpretive Data Reference Interval Normal >/= 90 mL/min/1.73m2 Mildly decreased* 60 - 89 mL/min/1.73m2 Mildly to moderately decreased 45 - 59 mL/min/1.73m2 Moderately to severely decreased 30 - 44 mL/min/1.73m2 Severely decreased 15 - 29 mL/min/1.73m2 Kidney Failure < 15 mL/min/1.73m2 *Relative to young adult level Estimated glomerular filtration rate is determined by the 2020 CKD-EPI equation recommended by the National Kidney Foundation (A Unifying Approach to GFR Estimation: Recommendations of the NKF-ASK Task Force on Reassessing the Inclusion of Race in Diagnosing Kidney Disease, JASN 2020). The CKD-EPI equation should not be used for patients with unstable renal function and has not been validated in children and those over 70. Current interpretive data was last reviewed 2021. Blood 12/04/2024 4:53 AM CDT 12/04/2024 5:12 AM CDT Bridget Gabriel MD LAB BLOOD ORDERABLES Final Result Performing Organization Address [facility]/ZIP Co de Phone Number [facility] [place] [address] * (ABNORMAL) CBC without differential (12/04/2024 4:53 AM CDT) WBC 4.86 3.80 - 9.90 K/cumm Hgb 7.2(L) 11.9 - 15.5 g/dL [facility] Hct 21.7(L) 35.6 - 45.5 % [facility] Plt 105(L) 150 - 400 K/cumm [facility] MPV 10.0 9.1 - 12.3 fL [facility] RBC 2.35(L) 3.90 - 5.20 M/cumm [facility] MCV 92.3 81.3 - 96.4 fL [facility] MCH 30.6 27.1 - 33.3 pg [facility] MCHC 33.2 32.3 - 35.7 g/dL [facility] RDW CV 14.4 11.1 - 14.9 % [facility] RDW SD 48.3(H) 35.7 - 48.1 fL [facility] NRBC abs 0.00 0.00 - 0.01 K/cumm [facility] Blood 12/04/2024 4:53 AM CDT 12/04/2024 5:12 AM CDT Bridget Gabriel MD LAB BLOOD ORDERABLES Final Result [facility] [place] [address] * (ABNORMAL) Phosphorus (12/04/2024 4:53 AM CDT) Pathologist [facility] Phosphorus, pl 1.8(L) 2.3 - 4.5 mg/dL Blood 12/04/2024 4:53 AM CDT 12/04/2024 5:12 AM CDT Bridget Gabriel MD LAB BLOOD ORDERABLES Final Result [facility] [place] [address] * Magnesium (12/04/2024 4:53 AM CDT) Magnesium 2.0 1.4 - 2.5 mg/dL Blood 12/04/2024 4:53 AM CDT 12/04/2024 5:12 AM CDT Bridget Gabriel MD LAB BLOOD ORDERABLES Final Result Performing Organization Address City/[facility]/ZIP Co de Phone Number [facility] [place] [address] * (ABNORMAL) Basic metabolic panel (12/04/2024 4:53 AM CDT) [facility] Sodium 139 135 - 145 mmol/L Potassium, pl 4.2 3.3 - 4.9 mmol/L [facility] Chloride 105 97 - 110 mmol/L [facility] CO2 30 22 - 32 mmol/L [facility] Anion gap 4 2 - 15 mmol/L [facility] BUN 17 6 - 25 mg/dL [facility] Creatinine 0.88 0.60 - 1.10 mg/dL [facility] Glucose 122 70 - 199 mg/dL [facility] Comment: Interpretive Data Fasting glucose >/= 126 mg/dl is diagnostic for diabetes. Fasting is defined as no caloric intake for at least 8 hours. Fasting glucose between 100 mg/dl to 125 mg/dl is diagnostic of prediabetes. In a patient with classic symptoms of hyperglycemia or hyperglycemic crisis, a random glucose >/= 200 mg/dl is diagnostic for diabetes. In the absence of unequivocal hyperglycemia, results should be confirmed by repeat testing. The classification and Diagnosis of Diabetes Diabetes Care 2021; 46: S19-S40. Current interpretive data was last revised 2022. Calcium 8.0(L) 8.5 - 10.3 mg/dL [facility] Blood 12/04/2024 4:53 AM CDT 12/04/2024 5:12 AM CDT us Bridget Gabriel MD LAB BLOOD ORDERABLES Final Result Performing Organization Address [facility] Co de Phone Number [facility] [place] [address] * (ABNORMAL) eGFR (12/03/2024 4:07 AM CDT) Pathologist [facility] eGFR 42(L) >=60 mL/min/1. 73 m2 Comment: Interpretive Data Reference Interval Normal >/= 90 mL/min/1.73m2 Mildly decreased* 60 - 89 mL/min/1.73m2 Mildly to moderately decreased 45 - 59 mL/min/1.73m2 Moderately to severely decreased 30 - 44 mL/min/1.73m2 Severely decreased 15 - 29 mL/min/1.73m2 Kidney Failure < 15 mL/min/1.73m2 *Relative to young adult level Estimated glomerular filtration rate is determined by the 2020 CKD-EPI equation recommended by the National Kidney Foundation (A Unifying Approach to GFR Estimation: Recommendations of the NKF-ASK Task Force on Reassessing the Inclusion of Race in Diagnosing Kidney Disease, JASN 2020). The CKD-EPI equation should not be used for patients with unstable renal function and has not been validated in children and those over 70. Current interpretive data was last reviewed 2021. Blood 12/03/2024 4:07 AM CDT 12/03/2024 4:45 AM CDT Bridget Gabriel MD LAB BLOOD ORDERABLES Final Result [facility] [place] [address] * (ABNORMAL) CBC without differential (12/03/2024 4:07 AM CDT) [facility] WBC 7.16 3.80 - 9.90 K/cumm Hgb 9.0(L) 11.9 - 15.5 g/dL [facility] Hct 26.8(L) 35.6 - 45.5 % [facility] Plt 122(L) 150 - 400 K/cumm [facility] MPV 10.2 9.1 - 12.3 fL [facility] RBC 2.89(L) 3.90 - 5.20 M/cumm [facility] MCV 92.7 81.3 - 96.4 fL [facility] MCH 31.1 27.1 - 33.3 pg [facility] MCHC 33.6 32.3 - 35.7 g/dL [facility] RDW CV 14.2 11.1 - 14.9 % [facility] RDW SD 49.0(H) 35.7 - 48.1 fL [facility] NRBC abs 0.00 0.00 - 0.01 K/cumm [facility] Blood 12/03/2024 4:07 AM CDT 12/03/2024 4:46 AM CDT us Bridget Gabriel MD LAB BLOOD ORDERABLES Final Result Performing Organization Address [facility] de Phone Number [facility] [place] [address] * (ABNORMAL) Phosphorus (12/03/2024 4:07 AM CDT) Phosphorus, pl 1.9(L) 2.3 - 4.5 mg/dL Blood 12/03/2024 4:07 AM CDT 12/03/2024 4:45 AM CDT us Bridget Gabriel MD LAB BLOOD ORDERABLES Final Result Performing Organization Address [facility] de Phone Number [facility] [place] [address] * Magnesium (12/03/2024 4:07 AM CDT) Magnesium 2.1 1.4 - 2.5 mg/dL Blood 12/03/2024 4:07 AM CDT 12/03/2024 4:45 AM CDT us Bridget Gabriel MD LAB BLOOD ORDERABLES Final Result Performing Organization Address [facility] de Phone Number [facility] [place] [address] * (ABNORMAL) Basic metabolic panel (12/03/2024 4:07 AM CDT) [facility] Signature Sodium 137 135 - 145 mmol/L Potassium, pl 4.1 3.3 - 4.9 mmol/L [facility] Chloride 102 97 - 110 mmol/L [facility] CO2 29 22 - 32 mmol/L [facility] Anion gap 6 2 - 15 mmol/L [facility] BUN 20 6 - 25 mg/dL [facility] Creatinine 1.24(H) 0.60 - 1.10 mg/dL [facility] Glucose 127 70 - 199 mg/dL [facility] Comment: Interpretive Data Fasting glucose >/= 126 mg/dl is diagnostic for diabetes. Fasting is defined as no caloric intake for at least 8 hours. Fasting glucose between 100 mg/dl to 125 mg/dl is diagnostic of prediabetes. In a patient with classic symptoms of hyperglycemia or hyperglycemic crisis, a random glucose >/= 200 mg/dl is diagnostic for diabetes. In the absence of unequivocal hyperglycemia, results should be confirmed by repeat testing. The classification and Diagnosis of Diabetes Diabetes Care 2021; 46: S19-S40. Current interpretive data was last revised 2022. Calcium 8.8 8.5 - 10.3 mg/dL [facility] Blood 12/03/2024 4:07 AM CDT 12/03/2024 4:45 AM CDT us Bridget Gabriel MD LAB BLOOD ORDERABLES Final Result [facility] [place] [address] * Transfuse RBC (12/03/2024 1:33 AM CDT) Blood us Claire Us NP BLOOD TRANSFUSION ORDER YANIV Final Result [facility] [place] [address] * Check Sample (12/02/2024 3:35 PM CDT) ABO Rh A Positive [facility]ED WITH [facility] OTHER 12/02/2024 3:35 PM CDT 12/02/2024 4:09 PM CDT us Bridget Gabriel MD LAB BLOOD ORDERABLES Final Result [facility] [place] [address] [facility] WITH [facility] * AR CRITICAL CARE ILL/INJURED PATIENT INIT 30-74 MIN (12/02/2024 3:34 PM CDT) Narrative Rashmi Ervin MD - 12/02/2024 3:34 PM CDT Rashmi Ervin MD 12/02/2024 3:35 PM Critical Care Performed by: Rashmi Ervin MD Authorized by: Mark Hennessy MD Critical care provider statement: As reflected in the history, physical exam, orders, notes, and/or MDM, I was personally present while the patient was critically ill and provided critical care services for 30 minutes, excluding time involved in separately billable procedures. Critical care was necessary to treat or prevent imminent or life-threatening deterioration of the following condition(s): limb threatening condition Critical care was time spent by me providing the following: continuous telemetry, continuous pulse oximetry and serial bedside patient exams decision regarding NPO status management of limb weight bearing status and acute fracture care acute pain control I provided emergent necessary critical care medicine services to this patient. I spent time discussing the management of this critically ill patient with consultants and the medical staff. I ordered and reviewed test results and/or imaging studies. I spent time discussing the management and therapeutic options for this critically ill patient with the patient themselves or with the appropriate designated surrogate decision-maker. I spent time documenting in the medical record. us Mark Hennessy MD IN CLINIC/BEDSIDE ORD ERABLES Final Result * Prepare RBC: 1 Units (12/02/2024 3:02 PM CDT) Product code [id number] Unit Number [id number] [facility] Product Blood Type APOS [facility] Dispense Status PRESUMED TRANSFUSED [facility] Blood 12/02/2024 3:02 PM CDT 12/02/2024 3:02 PM CDT Narrative [facility] - 12/03/2024 4:01 PM CDT Are special requirements needed? (All products are leukoreduced and CMV- safe)- >No Date required:-[id number] LRRBC # of [id number] Reasons:-Hgb <7 g/dL} us Claire Us NP BLOOD BANK PRODUCT ORDE MIKE Final Result [facility] [place] [address] * (ABNORMAL) Urinalysis reflex to microscopic and culture Urine (12/02/2024 10:53 AM CDT) Color, ur Straw Yellow Clarity, ur Clear Clear [facility] Specific gravity, ur 1.022 1.003 - 1.030 [facility] pH, urine 6.0 [facility] Comment: Interpretive Data U rine pH is affected by diet, medications, systemic acid-base disturbances, and renal tubular function. pH may affect urinary stone formation. For example, urine pH below 6.0 may help reduce the tendency for calcium phosphate stones and pH greater than 6.0 may reduce the tendency for uric acid stone formation. Source: [facility] Current Interpretive Data was last revised on 2017 Protein, ur ql Trace Negative [facility] Glucose, ur ql Negative Negative [facility] Ketones, ur Negative Negative [facility] Bilirubin, ur Negative Negative [facility] Blood, ur Negative Negative [facility] Urobilinogen, ur <2.0 <2.0 mg/dL [facility] Nitrite, ur Negative Negative [facility] Leukocyte esterase, ur 1+(A) Negative [facility] UA reflex comment Reflex to microscopic UA will be performed. [facility] Urine 12/02/2024 10:5 3 AM CDT 12/02/2024 11:25 AM CDT John Van MD LAB MICROBIOLOGY - GEN ERAL ORDERABLES Final Result Performing Organization Address [facility] Co de Phone Number [facility] [place] [address] * (ABNORMAL) Urinalysis, microscopic only (12/02/2024 10:53 AM CDT) WBC, ur 21-50(A) 0 - 5 /HPF RBC, ur 0-2 0 - 2 /HPF [facility] Mucous, ur Present(A) [facility] Culture Reflex Comment Reflex to urine culture will be performed. [facility] Urine 12/02/2024 10:5 3 AM CDT 12/02/2024 11:25 AM CDT John Van MD LAB URINE ORDERABLES F inal Result Performing Organization Address [facility] de Phone Number [facility] [place] [address] * (ABNORMAL) CBC without differential (12/02/2024 10:53 AM CDT) WBC 6.10 3.80 - 9.90 K/cumm Hgb 7.0(L) 11.9 - 15.5 g/dL [facility] Hct 21.1(L) 35.6 - 45.5 % [facility] Plt 125(L) 150 - 400 K/cumm [facility] MPV 10.1 9.1 - 12.3 fL [facility] RBC 2.27(L) 3.90 - 5.20 M/cumm [facility] MCV 93.0 81.3 - 96.4 fL [facility] MCH 30.8 27.1 - 33.3 pg [facility] MCHC 33.2 32.3 - 35.7 g/dL [facility] RDW CV 14.2 11.1 - 14.9 % [facility] RDW SD 48.5(H) 35.7 - 48.1 fL [facility] NRBC abs 0.00 0.00 - 0.01 K/cumm [facility] Blood 12/02/2024 10:5 3 AM CDT 12/02/2024 11:11 AM CDT us Claire Us [facility] LAB BLOOD ORDERABLES Fi nal Result Performing Organization Address [facility] Co de Phone Number [facility] [place] [address] * Urine culture Urine (12/02/2024 10:53 AM CDT) Report Final Report: No growth Urine 12/02/2024 10:5 3 AM CDT 12/02/2024 11:50 AM CDT Narrative [facility] - 12/03/2024 12:21 PM CDT Urine culture reflexed based upon urinalysis results. Testing performed by [facility] ([phone]) us John Van MD LAB MICROBIOLOGY - GEN ERAL ORDERABLES Final Result Performing Organization Address [facility] Co de Phone Number [facility] [place] [address] * XR Ankle Right 3 or More Views (12/02/2024 6:49 AM CDT) Anatomical Region Laterality Modality Lower Extremities, Ankle Right Compute d Radiography 12/02/2024 6:58 AM CDT Impressions 12/02/2024 6:58 AM CDT 1. Mild right hindfoot soft tissue swelling without acute osseous abnormality. Electronically signed by: Adán Gan M.D. Narrative 12/02/2024 6:58 AM CDT EXAMINATION: XR ANKLE RIGHT 3 OR MORE VIEWS HISTORY: Fall FINDINGS: 3 view examination of the weightbearing right ankle is read without comparison. Ankle mortise is congruent. No syndesmotic widening. Talar dome is intact. Mild hindfoot soft tissue swelling. No fracture or dislocation. Small focus of heterotopic ossification adjacent to the medial malleolus, likely sequela of prior ligamentous injury. Joint spaces are maintained. Small plantar spur. Procedure Note Martin Gan, Adán Jarrett MD - 12/02/2024 EXAMINATION: XR ANKLE RIGHT 3 OR MORE VIEWS HISTORY: Fall FINDINGS: 3 view examination of the weightbearing right ankle is read without comparison. Ankle mortise is congruent. No syndesmotic widening. Talar dome is intact. Mild hindfoot soft tissue swelling. No fracture or dislocation. Small focus of heterotopic ossification adjacent to the medial malleolus, likely sequela of prior ligamentous injury. Joint spaces are maintained. Small plantar spur. IMPRESSION: 1. Mild right hindfoot soft tissue swelling without acute osseous abnormality. Electronically signed by: Adán Gan M.D. Bridget Gabriel MD IMG XR PROCEDURES Fin al Result * XR Hand Left 3 or More Views (12/02/2024 6:49 AM CDT) Anatomical Region Laterality Modality Upper Extremities, Hand Left Computed Radiography 12/02/2024 6:57 AM CDT Impressions 12/02/2024 6:57 AM CDT 1. No acute osseous abnormality of the left hand. 2. 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 Electronically signed by: Adán Gan M.D. Narrative 12/02/2024 6:57 AM CDT EXAMINATION: XR HAND LEFT 3 OR MORE VIEWS HISTORY: Fall FINDINGS: Examination of the left hand is read without comparison. There is negative ulnar variance. Severe base of thumb osteoarthritis. There is severe 3rd metacarpophalangeal joint osteoarthritis. Particular osteoarthritis throughout the distal interphalangeal joints. No fracture or dislocation. Procedure Note Martin Gan, Adán Jarrett MD - 12/02/2024 EXAMINATION: XR HAND LEFT 3 OR MORE VIEWS HISTORY: Fall FINDINGS: Examination of the left hand is read without comparison. There is negative ulnar variance. Severe base of thumb osteoarthritis. There is severe 3rd metacarpophalangeal joint osteoarthritis. Particular osteoarthritis throughout the distal interphalangeal joints. No fracture or dislocation. IMPRESSION: 1. No acute osseous abnormality of the left hand. 2. 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 Electronically signed by: Adán Gan M.D. Bridget Gabriel MD IMG XR PROCEDURES Fin al Result * (ABNORMAL) eGFR (12/02/2024 4:58 AM CDT) eGFR 46(L) >=60 mL/min/1. 73 m2 Comment: Interpretive Data Reference Interval Normal >/= 90 mL/min/1.73m2 Mildly decreased* 60 - 89 mL/min/1.73m2 Mildly to moderately decreased 45 - 59 mL/min/1.73m2 Moderately to severely decreased 30 - 44 mL/min/1.73m2 Severely decreased 15 - 29 mL/min/1.73m2 Kidney Failure < 15 mL/min/1.73m2 *Relative to young adult level Estimated glomerular filtration rate is determined by the 2020 CKD-EPI equation recommended by the National Kidney Foundation (A Unifying Approach to GFR Estimation: Recommendations of the NKF-ASK Task Force on Reassessing the Inclusion of Race in Diagnosing Kidney Disease, JASN 2020). The CKD-EPI equation should not be used for patients with unstable renal function and has not been validated in children and those over 70. Current interpretive data was last reviewed 2021. Blood 12/02/2024 4:58 AM CDT 12/02/2024 6:00 AM CDT us Bridget Gabriel MD LAB BLOOD ORDERABLES Final Result [facility] [place] [address] * (ABNORMAL) CBC without differential (12/02/2024 4:58 AM CDT) Pathologist [facility] WBC 5.54 3.80 - 9.90 K/cumm Hgb 7.4(L) 11.9 - 15.5 g/dL [facility] Hct 21.5(L) 35.6 - 45.5 % [facility] Plt 119(L) 150 - 400 K/cumm [facility] MPV 10.4 9.1 - 12.3 fL [facility] RBC 2.35(L) 3.90 - 5.20 M/cumm [facility] MCV 91.5 81.3 - 96.4 fL [facility] MCH 31.5 27.1 - 33.3 pg [facility] MCHC 34.4 32.3 - 35.7 g/dL [facility] RDW CV 14.2 11.1 - 14.9 % [facility] RDW SD 47.7 35.7 - 48.1 fL [facility] NRBC abs 0.00 0.00 - 0.01 K/cumm [facility] Blood 12/02/2024 4:58 AM CDT 12/02/2024 6:00 AM CDT Bridget Gabriel MD LAB BLOOD ORDERABLES Final Result Performing Organization Address [facility] Co de Phone Number [facility] [place] [address] * Phosphorus (12/02/2024 4:58 AM CDT) Pathologist [facility] Phosphorus, pl 3.3 2.3 - 4.5 mg/dL Blood 12/02/2024 4:58 AM CDT 12/02/2024 6:00 AM CDT Bridget Gabriel MD LAB BLOOD ORDERABLES Final Result [facility] [place] [address] * Magnesium (12/02/2024 4:58 AM CDT) Pathologist [facility] Magnesium 1.9 1.4 - 2.5 mg/dL Blood 12/02/2024 4:58 AM CDT 12/02/2024 6:00 AM CDT Bridget Gabriel MD LAB BLOOD ORDERABLES Final Result Performing Organization Address [facility] Co de Phone Number [facility] [place] [address] * (ABNORMAL) Basic metabolic panel (12/02/2024 4:58 AM CDT) [facility] Sodium 139 135 - 145 mmol/L Potassium, pl 4.3 3.3 - 4.9 mmol/L [facility] Chloride 104 97 - 110 mmol/L [facility] CO2 28 22 - 32 mmol/L [facility] Anion gap 7 2 - 15 mmol/L [facility] BUN 21 6 - 25 mg/dL [facility] Creatinine 1.16(H) 0.60 - 1.10 mg/dL [facility] Glucose 141 70 - 199 mg/dL [facility] Comment: Interpretive Data Fasting glucose >/= 126 mg/dl is diagnostic for diabetes. Fasting is defined as no caloric intake for at least 8 hours. Fasting glucose between 100 mg/dl to 125 mg/dl is diagnostic of prediabetes. In a patient with classic symptoms of hyperglycemia or hyperglycemic crisis, a random glucose >/= 200 mg/dl is diagnostic for diabetes. In the absence of unequivocal hyperglycemia, results should be confirmed by repeat testing. The classification and Diagnosis of Diabetes Diabetes Care 202; 46: S19-S40. Current interpretive data was last revised 2022. Calcium 8.5 8.5 - 10.3 mg/dL [facility] Blood 12/02/2024 4:58 AM CDT 12/02/2024 6:00 AM CDT Bridget Gabriel MD LAB BLOOD ORDERABLES Final Result Performing Organization Address City/[facility] Co de Phone Number [facility] [place] [address] * eGFR (12/01/2024 9:37 PM CDT) Pathologist [facility] eGFR 62 >=60 mL/min/1. 73 m2 Comment: Interpretive Data Reference Interval Normal >/= 90 mL/min/1.73m2 Mildly decreased* 60 - 89 mL/min/1.73m2 Mildly to moderately decreased 45 - 59 mL/min/1.73m2 Moderately to severely decreased 30 - 44 mL/min/1.73m2 Severely decreased 15 - 29 mL/min/1.73m2 Kidney Failure < 15 mL/min/1.73m2 *Relative to young adult level Estimated glomerular filtration rate is determined by the 2020 CKD-EPI equation recommended by the National Kidney Foundation (A Unifying Approach to GFR Estimation: Recommendations of the NKF-ASK Task Force on Reassessing the Inclusion of Race in Diagnosing Kidney Disease, JASN 2020). The CKD-EPI equation should not be used for patients with unstable renal function and has not been validated in children and those over 70. Current interpretive data was last reviewed 2021. Blood 12/01/2024 9:37 PM CDT 12/01/2024 10:14 PM CDT Bridget Gabriel MD LAB BLOOD ORDERABLES Final Result Performing Organization Address City/[facility]/ZIP Co de Phone Number [facility] [place] [address] * (ABNORMAL) CBC without differential (12/01/2024 9:37 PM CDT) [facility] WBC 7.78 3.80 - 9.90 K/cumm Hgb 8.3(L) 11.9 - 15.5 g/dL [facility] Hct 24.2(L) 35.6 - 45.5 % [facility] Plt 147(L) 150 - 400 K/cumm [facility] MPV 10.3 9.1 - 12.3 fL [facility] RBC 2.66(L) 3.90 - 5.20 M/cumm [facility] MCV 91.0 81.3 - 96.4 fL [facility] MCH 31.2 27.1 - 33.3 pg [facility] MCHC 34.3 32.3 - 35.7 g/dL [facility] RDW CV 14.0 11.1 - 14.9 % [facility] RDW SD 46.4 35.7 - 48.1 fL [facility] NRBC abs 0.00 0.00 - 0.01 K/cumm [facility] Blood 12/01/2024 9:37 PM CDT 12/01/2024 10:14 PM CDT Bridget Gabriel MD LAB BLOOD ORDERABLES Final Result [facility] [place] [address] * Phosphorus (12/01/2024 9:37 PM CDT) Pathologist [facility] Phosphorus, pl 2.7 2.3 - 4.5 mg/dL Blood 12/01/2024 9:37 PM CDT 12/01/2024 10:14 PM CDT Bridget Gabriel MD LAB BLOOD ORDERABLES Final Result [facility] [address] * Magnesium (12/01/2024 9:37 PM CDT) Magnesium 1.9 1.4 - 2.5 mg/dL Blood 12/01/2024 9:37 PM CDT 12/01/2024 10:14 PM CDT Bridget Gabriel MD LAB BLOOD ORDERABLES Final Result Performing Organization Address City/[facility]/ZIP Co de Phone Number [facility] [place] [address] * Basic metabolic panel (12/01/2024 9:37 PM CDT) [facility] Sodium 138 135 - 145 mmol/L Potassium, pl 4.5 3.3 - 4.9 mmol/L [facility] Chloride 103 97 - 110 mmol/L [facility] CO2 30 22 - 32 mmol/L [facility] Anion gap 5 2 - 15 mmol/L [facility] BUN 17 6 - 25 mg/dL [facility] Creatinine 0.90 0.60 - 1.10 mg/dL [facility] Glucose 154 70 - 199 mg/dL [facility] Comment: Interpretive Data Fasting glucose >/= 126 mg/dl is diagnostic for diabetes. Fasting is defined as no caloric intake for at least 8 hours. Fasting glucose between 100 mg/dl to 125 mg/dl is diagnostic of prediabetes. In a patient with classic symptoms of hyperglycemia or hyperglycemic crisis, a random glucose >/= 200 mg/dl is diagnostic for diabetes. In the absence of unequivocal hyperglycemia, results should be confirmed by repeat testing. The classification and Diagnosis of Diabetes Diabetes Care 2021; 46: S19-S40. Current interpretive data was last revised 2022. Calcium 8.8 8.5 - 10.3 mg/dL [facility] Blood 12/01/2024 9:37 PM CDT 12/01/2024 10:14 PM CDT Bridget Gabriel MD LAB BLOOD ORDERABLES Final Result Performing Organization Address [facility] Co de Phone Number [facility] [place] [address] * XR Femur Left 2 or More Views (12/01/2024 12:02 PM CDT) Anatomical Region Laterality Modality Lower Extremities, Thigh, Femur Left Computed Radiography 12/01/2024 1:29 PM CDT Impressions 12/01/2024 1:29 PM CDT Interval reduction and nailing of the intertrochanteric comminuted left proximal femur fracture with displacement of the lesser trochanter fragment. Electronically signed by: Ulysses Pereira M.D. Narrative 12/01/2024 1:29 PM CDT EXAMINATION: XR FEMUR LEFT 2 OR MORE VIEWS HISTORY: Left femur fracture COMPARISON: 12/01/2024 CT and radiographs FINDINGS: Interval reduction and nailing of the comminuted intertrochanteric left proximal femur fracture. The lesser trochanteric fragment remains superomedially displaced. There is a femoral head and neck screw and 2 distal interlocking screws as well as a subtrochanteric cerclage wire.. Soft tissue gas is present about the left proximal thigh/hip. No evidence of dislocation. Mild left hip and severe left knee osteoarthritis. Procedure Note Ulysses Pereira MD - 12/01/2024 EXAMINATION: XR FEMUR LEFT 2 OR MORE VIEWS HISTORY: Left femur fracture COMPARISON: 12/01/2024 CT and radiographs FINDINGS: Interval reduction and nailing of the comminuted intertrochanteric left proximal femur fracture. The lesser trochanteric fragment remains superomedially displaced. There is a femoral head and neck screw and 2 distal interlocking screws as well as a subtrochanteric cerclage wire.. Soft tissue gas is present about the left proximal thigh/hip. No evidence of dislocation. Mild left hip and severe left knee osteoarthritis. IMPRESSION: Interval reduction and nailing of the intertrochanteric comminuted left proximal femur fracture with displacement of the lesser trochanter fragment. Electronically signed by: Ulysses Pereira M.D. Bridget Gabriel MD IMG XR PROCEDURES Fin al Result * FL Fluoroscopy < 1 Hour (12/01/2024 10:26 AM CDT) Narrative [facility] - 12/01/2024 10:26 AM CDT The images from this study are not interpreted by Radiology. Please refer to the physician's procedure / OR operative note. us Kasi Maier MD IMG FLUOROSCOPY PROCEDUR ES Final Result [facility] * AR AN EMERGENT ENDOTRACHEAL AIRWAY, AR AN PROCEDURE PLACEHOLDER (12/01/2024 7:52 AM CDT) Narrative Elva Allen CRNA - 12/01/2024 7:52 AM CDT Elva Allen CRNA 12/01/2024 7:53 AM Airway Patient location: OR Urgency: emergent Indications for airway management: anesthesia Difficult airway: no Staff: Placed by: MEDICAL/SURGERY REGISTERED NURSE: Elva Allen CRNA Emergent airway documentation: Patient identity confirmed by: verbally with patient and arm band Risks and benefits discussed: yes Consent obtained: yes Consent given by: patient Airway prep: Preoxygenated: yes Patient position: sniffing Mask difficulty assessment: 1 - vent by mask Spontaneous ventilation during airway: present Sedation level during airway: GA Final airway details: Final airway type: endotracheal airway Tube type: ETT ETT size: 7.0 mm Cuffed: yes Technique used for successful ETT placement: video laryngoscopy Devices/Methods used in placement: intubating stylet Insertion site: oral Blade type: Janine Video blade type: Stewart Blade size: 3 Cormack-Lehane (video): grade I - full view of glottis Initial cuff pressure: 20 cm H2O Cuff volume: 6 mL Cuff inflated with: air ETT to teeth: 21 cm Placement verified by: auscultation Airway secured with: silk tape Number of attempts: 1 Ventilation between attempts: BVM us Charles Christopher MD ANESTHESIA ORDERABLES Final Resu lt * ECG 12-LEAD (12/01/2024 4:45 AM CDT) Narrative [facility] - 12/01/2024 4:45 AM CDT Makr Hennessy MD 12/01/2024 4:45 AM ECG 12 lead Date/Time: 12/01/2024 4:45 AM Performed by: Mark Hennessy MD Authorized by: Bridget Gabriel MD Comments: Sinus rhythm, heart rate 76. Normal axis and intervals. No ischemic changes. Bridget Gabriel MD ECG ORDERABLES Final Result [facility] * XR Hip Left 1 View (12/01/2024 2:03 AM CDT) Anatomical Region Laterality Modality Lower Extremities, Hip, Pelvis Left C omputed Radiography 12/01/2024 2:14 AM CDT Impressions 12/01/2024 9:08 AM CDT Comparison is made to the same-day radiograph. Mildly improved alignment of the displaced and foreshortened left reverse obliquity comminuted intertrochanteric femur fracture status post traction. The left femoral head remains seated within its respective acetabula. Dictated by: Lyle Lopez MD The radiology attending physician has personally reviewed this study, and had reviewed and/or edited this written report and agrees with it. Electronically signed by: Wallace Merritt M.D. Narrative 12/01/2024 9:08 AM CDT EXAMINATION: XR HIP LEFT 1 VIEW HISTORY: Traction view Procedure Note Wallace Merritt MD - 12/01/2024 EXAMINATION: XR HIP LEFT 1 VIEW HISTORY: Traction view IMPRESSION: Comparison is made to the same-day radiograph. Mildly improved alignment of the displaced and foreshortened left reverse obliquity comminuted intertrochanteric femur fracture status post traction. The left femoral head remains seated within its respective acetabula. Dictated by: Lyle Lopez MD The radiology attending physician has personally reviewed this study, and had reviewed and/or edited this written report and agrees with it. Electronically signed by: Wallace Merritt M.D. Mark Hennessy MD IMG XR PROCEDURES Fin al Result * CT Pelvis WO Contrast (12/01/2024 1:23 AM CDT) Anatomical Region Laterality Modality Body N/A Computed Tomogra phy 12/01/2024 1:47 AM CDT Impressions 12/01/2024 9:09 AM CDT Acute, comminuted, mildly displaced left reverse obliquity intertrochanteric femur fracture. Dictated by: Lyle Lopez MD The radiology attending physician has personally reviewed this study, and had reviewed and/or edited this written report and agrees with it. Electronically signed by: Wallace Merritt M.D. Narrative 12/01/2024 9:09 AM CDT EXAMINATION: CT PELVIS WO CONTRAST HISTORY: Left hip fracture TECHNIQUE: Transaxial computed tomographic images of the pelvis were obtained without intravenous contrast according to the standard protocol. COMPARISON: Same day radiographs. FINDINGS: There is an acute, comminuted, mildly displaced left reverse obliquity intertrochanteric femur fracture with extension into the greater and lesser trochanters. The lesser trochanteric fragment is mildly displaced. No associated left femoral head fracture. Bilateral femoral heads are seated within their respective acetabula. Mild bilateral posterior arthritis. Mild osteitis pubis. Degenerative changes of the lower lumbar spine. Grade 1 spondylolisthesis at L4-L5. Limited examination of the pelvis demonstrates urinary bladder decompressed around Lord catheter. Uterus is atrophic or surgically absent. Imaged bowel is normal caliber without focal bowel thickening. No pelvic lymphadenopathy. No pelvic ascites. Procedure Note Wallace Merritt MD - 12/01/2024 EXAMINATION: CT PELVIS WO CONTRAST HISTORY: Left hip fracture TECHNIQUE: Transaxial computed tomographic images of the pelvis were obtained without intravenous contrast according to the standard protocol. COMPARISON: Same day radiographs. FINDINGS: There is an acute, comminuted, mildly displaced left reverse obliquity intertrochanteric femur fracture with extension into the greater and lesser trochanters. The lesser trochanteric fragment is mildly displaced. No associated left femoral head fracture. Bilateral femoral heads are seated within their respective acetabula. Mild bilateral posterior arthritis. Mild osteitis pubis. Degenerative changes of the lower lumbar spine. Grade 1 spondylolisthesis at L4-L5. Limited examination of the pelvis demonstrates urinary bladder decompressed around Lord catheter. Uterus is atrophic or surgically absent. Imaged bowel is normal caliber without focal bowel thickening. No pelvic lymphadenopathy. No pelvic ascites. IMPRESSION: Acute, comminuted, mildly displaced left reverse obliquity intertrochanteric femur fracture. Dictated by: Lyle Lopez MD The radiology attending physician has personally reviewed this study, and had reviewed and/or edited this written report and agrees with it. Electronically signed by: Wallace Merritt M.D. John Van MD IMG CT PROCEDURES Pema l Result * (ABNORMAL) eGFR (12/01/2024 12:13 AM CDT) eGFR 59(L) >=60 mL/min/1. 73 m2 Comment: Interpretive Data Reference Interval Normal >/= 90 mL/min/1.73m2 Mildly decreased* 60 - 89 mL/min/1.73m2 Mildly to moderately decreased 45 - 59 mL/min/1.73m2 Moderately to severely decreased 30 - 44 mL/min/1.73m2 Severely decreased 15 - 29 mL/min/1.73m2 Kidney Failure < 15 mL/min/1.73m2 *Relative to young adult level Estimated glomerular filtration rate is determined by the 2020 CKD-EPI equation recommended by the National Kid[employer] (A Unifying Approach to GFR Estimation: Recommendations of the NKF-ASK Task Force on Reassessing the Inclusion of Race in Diagnosing Kidney Disease, JASN 2020). The CKD-EPI equation should not be used for patients with unstable renal function and has not been validated in children and those over 70. Current interpretive data was last reviewed 2021. Blood 12/01/2024 12:1 3 AM CDT 12/01/2024 12:52 AM CDT John Van MD LAB BLOOD ORDERABLES F inal Result [facility] Department of Laboratories [place], [place] [id number] * (ABNORMAL) Differential, auto (12/01/2024 12:13 AM CDT) Neutrophil abs 6.35 1.50 - 6.50 K/cumm Imm gran abs 0.04 0.00 - 0.10 K/cumm [facility] Lymphocyte abs 0.60(L) 0.80 - 3.30 K/cumm [facility] Monocyte abs 0.58 0.20 - 0.80 K/cumm [facility] Eosinophil abs 0.04 0.00 - 0.50 K/cumm [facility] Basophil abs 0.04 0.00 - 0.10 K/cumm [facility] Neutrophil pct 83.1 % [facility] Comment: Interpretive Data Percent cell count reference ranges are not reported, since discordance with absolute values may lead to misinterpretation of CBC data. Current Interpretive Data was last revised on 2017. Imm gran pct 0.5 % [facility] Comment: Interpretive Data Percent cell count reference ranges are not reported, since discordance with absolute values may lead to misinterpretation of CBC data. Current Interpretive Data was last revised on 2017. Lymphocyte pct 7.8 % [facility] Comment: Interpretive Data Percent cell count reference ranges are not reported, since discordance with absolute values may lead to misinterpretation of CBC data. Current Interpretive Data was last revised on 2017. Monocyte pct 7.6 % [facility] Comment: Interpretive Data Percent cell count reference ranges are not reported, since discordance with absolute values may lead to misinterpretation of CBC data. Current Interpretive Data was last revised on 2017. Eosinophil pct 0.5 % [facility] Comment: Interpretive Data Percent cell count reference ranges are not reported, since discordance with absolute values may lead to misinterpretation of CBC data. Current Interpretive Data was last revised on 2017. Basophil pct 0.5 % [facility] Comment: Interpretive Data Percent cell count reference ranges are not reported, since discordance with absolute values may lead to misinterpretation of CBC data. Current Interpretive Data was last revised on 2017. Blood 12/01/2024 12:1 3 AM CDT 12/01/2024 12:52 AM CDT John Van MD LAB BLOOD ORDERABLES F inal Result [facility] [place] [address] * (ABNORMAL) CBC with auto differential (12/01/2024 12:13 AM CDT) [facility] WBC 7.65 3.80 - 9.90 K/cumm Hgb 10.5(L) 11.9 - 15.5 g/dL [facility] Hct 30.1(L) 35.6 - 45.5 % [facility] Plt 123(L) 150 - 400 K/cumm [facility] MPV 10.1 9.1 - 12.3 fL [facility] RBC 3.34(L) 3.90 - 5.20 M/cumm [facility] MCV 90.1 81.3 - 96.4 fL [facility] MCH 31.4 27.1 - 33.3 pg [facility] MCHC 34.9 32.3 - 35.7 g/dL [facility] RDW CV 13.8 11.1 - 14.9 % [facility] RDW SD 45.0 35.7 - 48.1 fL [facility] NRBC abs 0.00 0.00 - 0.01 K/cumm [facility] Blood 12/01/2024 12:1 3 AM CDT 12/01/2024 12:52 AM CDT John Van MD LAB BLOOD ORDERABLES F inal Result [facility] [place] [address] * aPTT (12/01/2024 12:13 AM CDT) [facility] aPTT 32 28 - 38 sec Comment: Interpretive Data Heparin therapeutic range: 66.0 - 100.0 seconds. Range based on correlation with therapeutic heparin activity range of 0.3 - 0.7 Units/mL. Current interpretive data was last revised on 2023. Blood 12/01/2024 12:1 3 AM CDT 12/01/2024 12:49 AM CDT John Van MD LAB BLOOD ORDERABLES F inal Result Performing Organization Address [facility] Co de Phone Number [facility] [place] [place] [address] * (ABNORMAL) Protime-INR (12/01/2024 12:13 AM CDT) PT 14.0(H) 9.7 - 13.0 sec INR 1.29(H) 0.90 - 1.20 [facility] Comment: Interpretive data Oral anticoagulant therapeutic ranges: Venous thromboembolism prophylaxis or treatment: 2.0-3.0 CARDIOLOGY Standard range: 2.0-3.0 High-intensity range: 2.5-3.5 Refer to indication-specific guidelines for appropriate target ranges for prosthetic heart valve replacement. Current interpretive data was last revised on 2019. Blood 12/01/2024 12:1 3 AM CDT 12/01/2024 12:49 AM CDT John Van MD LAB BLOOD ORDERABLES F inal Result Performing Organization Address [facility] [place] [address] * Type and screen (12/01/2024 12:13 AM CDT) Vicente, indirect Negative ABO Rh A Positive [facility] Blood 12/01/2024 12:1 3 AM CDT 12/01/2024 12:42 AM CDT Narrative [facility] - 12/01/2024 1:53 AM CDT Has the patient had Daratumumab or Isatuximab in the past 6 months?->Unknown John Van MD LAB BLOOD BANK TEST OR DERABLES Final Result Performing Organization Address [facility] Co de Phone Number [facility] [place] [place] [address] * (ABNORMAL) Comprehensive metabolic panel (12/01/2024 12:13 AM CDT) Sodium 140 135 - 145 mmol/L Potassium, pl 4.0 3.3 - 4.9 mmol/L [facility] Chloride 105 97 - 110 mmol/L [facility] CO2 26 22 - 32 mmol/L [facility] Anion gap 9 2 - 15 mmol/L [facility] BUN 21 6 - 25 mg/dL [facility] Creatinine 0.94 0.60 - 1.10 mg/dL [facility] Glucose 157 70 - 199 mg/dL [facility] Comment: Interpretive Data Fasting glucose >/= 126 mg/dl is diagnostic for diabetes. Fasting is defined as no caloric intake for at least 8 hours. Fasting glucose between 100 mg/dl to 125 mg/dl is diagnostic of prediabetes. In a patient with classic symptoms of hyperglycemia or hyperglycemic crisis, a random glucose >/= 200 mg/dl is diagnostic for diabetes. In the absence of unequivocal hyperglycemia, results should be confirmed by repeat testing. The classification and Diagnosis of Diabetes Diabetes Care 2021; 46: S19-S40. Current interpretive data was last revised 2022. Calcium 9.0 8.5 - 10.3 mg/dL [facility] Bilirubin, total 0.4 0.1 - 1.2 mg/dL [facility] Protein, pl 6.1(L) 6.5 - 8.5 g/dL [facility] Albumin 4.0 3.5 - 5.0 g/dL [facility] Alk phos 54 40 - 130 Units/L [facility] ALT 14 7 - 45 Units/L [facility] AST 23 10 - 45 Units/L [facility] Blood 12/01/2024 12:1 3 AM CDT 12/01/2024 12:52 AM CDT John Van MD LAB BLOOD ORDERABLES F inal Result [facility] [place] [address] * XR Hip Left 2 or 3 Views W Pelvis (12/01/2024 12:02 AM CDT) Anatomical Region Laterality Modality Lower Extremities, Hip, Pelvis Left C omputed Radiography 12/01/2024 12:0 6 AM CDT Impressions 12/01/2024 9:09 AM CDT No radiographic available for comparison. CHEST: No consolidation, pleural effusion or pneumothorax. Heart size and mediastinal contours are normal. Pelvis/left femur: There is an acute, comminuted, reverse obliquity left intertrochanteric femur fracture with associated displacement of the lesser trochanteric fragment. Bilateral femoral heads are seated within their respective acetabula. Mild bilateral hip posterior arthritis. Sacral iliac joints are symmetric. Left knee: No acute fracture of the left knee. Alignment is normal. Mild medial compartment predominant joint compartment left knee osteoarthritis. No left knee joint effusion. Dictated by: Lyle Lopez MD The radiology attending physician has personally reviewed this study, and had reviewed and/or edited this written report and agrees with it. Electronically signed by: Wallace Merritt M.D. Narrative 12/01/2024 9:09 AM CDT EXAMINATION: XR HIP LEFT 2 OR 3 VIEWS W PELVIS, XR FEMUR LEFT 2 OR MORE VIEWS, XR KNEE LEFT 1 OR 2 VIEWS, XR CHEST 1 VIEW HISTORY: Fall with left hip pain Procedure Note Wallace Merritt MD - 12/01/2024 EXAMINATION: XR HIP LEFT 2 OR 3 VIEWS W PELVIS, XR FEMUR LEFT 2 OR MORE VIEWS, XR KNEE LEFT 1 OR 2 VIEWS, XR CHEST 1 VIEW HISTORY: Fall with left hip pain IMPRESSION: No radiographic available for comparison. CHEST: No consolidation, pleural effusion or pneumothorax. Heart size and mediastinal contours are normal. Pelvis/left femur: There is an acute, comminuted, reverse obliquity left intertrochanteric femur fracture with associated displacement of the lesser trochanteric fragment. Bilateral femoral heads are seated within their respective acetabula. Mild bilateral hip posterior arthritis. Sacral iliac joints are symmetric. Left knee: No acute fracture of the left knee. Alignment is normal. Mild medial compartment predominant joint compartment left knee osteoarthritis. No left knee joint effusion. Dictated by: Lyle Lopez MD The radiology attending physician has personally reviewed this study, and had reviewed and/or edited this written report and agrees with it. Electronically signed by: Wallace Merritt M.D. John Van MD IM XR PROCEDURES Pema l Result * XR Femur Left 2 or More Views (12/01/2024 12:02 AM CDT) Anatomical Region Laterality Modality Lower Extremities, Thigh, Femur Left Computed Radiography 12/01/2024 12:0 6 AM CDT Impressions 12/01/2024 9:09 AM CDT No radiographic available for comparison. CHEST: No consolidation, pleural effusion or pneumothorax. Heart size and mediastinal contours are normal. Pelvis/left femur: There is an acute, comminuted, reverse obliquity left intertrochanteric femur fracture with associated displacement of the lesser trochanteric fragment. Bilateral femoral heads are seated within their respective acetabula. Mild bilateral hip posterior arthritis. Sacral iliac joints are symmetric. Left knee: No acute fracture of the left knee. Alignment is normal. Mild medial compartment predominant joint compartment left knee osteoarthritis. No left knee joint effusion. Dictated by: Lyle Lopez MD The radiology attending physician has personally reviewed this study, and had reviewed and/or edited this written report and agrees with it. Electronically signed by: Wallace Merritt M.D. Narrative 12/01/2024 9:09 AM CDT EXAMINATION: XR HIP LEFT 2 OR 3 VIEWS W PELVIS, XR FEMUR LEFT 2 OR MORE VIEWS, XR KNEE LEFT 1 OR 2 VIEWS, XR CHEST 1 VIEW HISTORY: Fall with left hip pain Procedure Note Wallace Merritt MD - 12/01/2024 EXAMINATION: XR HIP LEFT 2 OR 3 VIEWS W PELVIS, XR FEMUR LEFT 2 OR MORE VIEWS, XR KNEE LEFT 1 OR 2 VIEWS, XR CHEST 1 VIEW HISTORY: Fall with left hip pain IMPRESSION: No radiographic available for comparison. CHEST: No consolidation, pleural effusion or pneumothorax. Heart size and mediastinal contours are normal. Pelvis/left femur: There is an acute, comminuted, reverse obliquity left intertrochanteric femur fracture with associated displacement of the lesser trochanteric fragment. Bilateral femoral heads are seated within their respective acetabula. Mild bilateral hip posterior arthritis. Sacral iliac joints are symmetric. Left knee: No acute fracture of the left knee. Alignment is normal. Mild medial compartment predominant joint compartment left knee osteoarthritis. No left knee joint effusion. Dictated by: Lyle Lopez MD The radiology attending physician has personally reviewed this study, and had reviewed and/or edited this written report and agrees with it. Electronically signed by: Wallace Merritt M.D. John Van MD IM XR PROCEDURES Pema l Result * XR Chest 1 View (12/01/2024 12:02 AM CDT) Anatomical Region Laterality Modality Body, Chest N/A Computed Radiogr aphy 12/01/2024 12:0 6 AM CDT Impressions 12/01/2024 9:09 AM CDT No radiographic available for comparison. CHEST: No consolidation, pleural effusion or pneumothorax. Heart size and mediastinal contours are normal. Pelvis/left femur: There is an acute, comminuted, reverse obliquity left intertrochanteric femur fracture with associated displacement of the lesser trochanteric fragment. Bilateral femoral heads are seated within their respective acetabula. Mild bilateral hip posterior arthritis. Sacral iliac joints are symmetric. Left knee: No acute fracture of the left knee. Alignment is normal. Mild medial compartment predominant joint compartment left knee osteoarthritis. No left knee joint effusion. Dictated by: Lyle Lopez MD The radiology attending physician has personally reviewed this study, and had reviewed and/or edited this written report and agrees with it. Electronically signed by: Wallace Merritt M.D. Narrative 12/01/2024 9:09 AM CDT EXAMINATION: XR HIP LEFT 2 OR 3 VIEWS W PELVIS, XR FEMUR LEFT 2 OR MORE VIEWS, XR KNEE LEFT 1 OR 2 VIEWS, XR CHEST 1 VIEW HISTORY: Fall with left hip pain Procedure Note Wallace Merritt MD - 12/01/2024 EXAMINATION: XR HIP LEFT 2 OR 3 VIEWS W PELVIS, XR FEMUR LEFT 2 OR MORE VIEWS, XR KNEE LEFT 1 OR 2 VIEWS, XR CHEST 1 VIEW HISTORY: Fall with left hip pain IMPRESSION: No radiographic available for comparison. CHEST: No consolidation, pleural effusion or pneumothorax. Heart size and mediastinal contours are normal. Pelvis/left femur: There is an acute, comminuted, reverse obliquity left intertrochanteric femur fracture with associated displacement of the lesser trochanteric fragment. Bilateral femoral heads are seated within their respective acetabula. Mild bilateral hip posterior arthritis. Sacral iliac joints are symmetric. Left knee: No acute fracture of the left knee. Alignment is normal. Mild medial compartment predominant joint compartment left knee osteoarthritis. No left knee joint effusion. Dictated by: Lyle Lopez MD The radiology attending physician has personally reviewed this study, and had reviewed and/or edited this written report and agrees with it. Electronically signed by: Wallace Merritt M.D. [facility] Rich Van MD IM XR PROCEDURES Pema l Result * XR Knee Left 1 or 2 Views (12/01/2024 12:02 AM CDT) Anatomical Region Laterality Modality Lower Extremities, Knee Left Computed Radiography 12/01/2024 12:0 6 AM CDT Impressions 12/01/2024 9:09 AM CDT No radiographic available for comparison. CHEST: No consolidation, pleural effusion or pneumothorax. Heart size and mediastinal contours are normal. Pelvis/left femur: There is an acute, comminuted, reverse obliquity left intertrochanteric femur fracture with associated displacement of the lesser trochanteric fragment. Bilateral femoral heads are seated within their respective acetabula. Mild bilateral hip posterior arthritis. Sacral iliac joints are symmetric. Left knee: No acute fracture of the left knee. Alignment is normal. Mild medial compartment predominant joint compartment left knee osteoarthritis. No left knee joint effusion. Dictated by: Lyle Lopez MD The radiology attending physician has personally reviewed this study, and had reviewed and/or edited this written report and agrees with it. Electronically signed by: Wallace Merritt M.D. Narrative 12/01/2024 9:09 AM CDT EXAMINATION: XR HIP LEFT 2 OR 3 VIEWS W PELVIS, XR FEMUR LEFT 2 OR MORE VIEWS, XR KNEE LEFT 1 OR 2 VIEWS, XR CHEST 1 VIEW HISTORY: Fall with left hip pain Procedure Note Wallace Merritt MD - 12/01/2024 EXAMINATION: XR HIP LEFT 2 OR 3 VIEWS W PELVIS, XR FEMUR LEFT 2 OR MORE VIEWS, XR KNEE LEFT 1 OR 2 VIEWS, XR CHEST 1 VIEW HISTORY: Fall with left hip pain IMPRESSION: No radiographic available for comparison. CHEST: No consolidation, pleural effusion or pneumothorax. Heart size and mediastinal contours are normal. Pelvis/left femur: There is an acute, comminuted, reverse obliquity left intertrochanteric femur fracture with associated displacement of the lesser trochanteric fragment. Bilateral femoral heads are seated within their respective acetabula. Mild bilateral hip posterior arthritis. Sacral iliac joints are symmetric. Left knee: No acute fracture of the left knee. Alignment is normal. Mild medial compartment predominant joint compartment left knee osteoarthritis. No left knee joint effusion. Dictated by: Lyle Lopez MD The radiology attending physician has personally reviewed this study, and had reviewed and/or edited this written report and agrees with it. Electronically signed by: aWllace Merritt M.D. [facility] Rich Van MD IMG XR PROCEDURES Pema l Result from Last 3 Months Insurance [employer] MEDICARE A[employer] MEDICARE Advance Directives For more information, please contact: [phone] * LIMITED - No CPR (Latest Code Status on File) Date Activated Date Inactivated Comments 12/04/2024 11:55 AM 12/06/2024 7:42 PM * Full Code Date Activated Date Inactivated Comments 12/02/2024 3:39 AM 12/04/2024 11:55 AM * Full Code Date Activated Date Inactivated Comments 12/01/2024 4:57 PM 12/02/2024 3:39 AM * Full Code Date Activated Date Inactivated Comments 12/01/2024 3:57 AM 12/01/2024 4:57 PM Care Teams Plate Take Out Worker Relationship Specialty Start Date End Date Geovanni Hoffman MD [address] [facility] [address] [address] PCP - General Family Medicine 11/26/24
--- OUTSIDE RECORDS SUMMARY | 2025-01-30 12:48 | XMS_ITS ---
Author Organization [facility] al Address [address] [place] [address] Care Team Providers Care Hose Finisher Name Role Phone Geovanni Hoffman MD Primary Care Provider [phone] Active Problems Patient Care Coordination No te Formatting of this note migh t be different from the original. Mechanism of Injury:SLMF 11/30/24 Dx: L pertrochanteric femur fx Surgeries: 12/01/24: CMN L pertrochanteric femur fx ([place]) HDC: 12/06/24 Dc'd to Inpatient Rehab Do [...] - 12/02: Transfused 1 unit prbcs. - 12/03: Post hgb 9.0 - 12/04: Post hgb 7.2, No concern for active bleeding. Repeat CBC - 7/3: Hgb 8.5g/dL ALENA (acute kidney injury) 12/03/2024 Assessment & Plan (12/04/2024 11:58 AM CDT): 12/03: Cr 1.2 (1.1), 500 LR bolus 12/04: Cr 0.88 Discharge planning issues 12/02/2024 Assessment [...] - PT/OT - Bone health referral at [place] Follow up with ortho in 3 weeks [...] Enlarged lymph nodes 10/23/2017 Heart palpitations 10/23/2017 Current Treatment and Therapy Plans No current plan information found. Past Treatment and Therapy Plans No past plan information found. Lifetime Dose Tracking * Chemical Lifetime Dose Automatic Entry Manual Entr y Fluoro Time 6.245 minutes 6.245 minutes 0 minutes Air kerma at the reference point (Ka,r) 86.05 mGy 8 6.05 mGy 0 mGy DLP 321 mGycm 321 mGycm 0 mGycm
--- OUTSIDE RECORDS SUMMARY | 2025-01-30 12:48 | XMS_ITS | Clinical Summary ---
Author Organization [facility] Address [address] [address] Care Team Providers Care Slice Cutting Machine Operator Name Role Phone Geovanni Hoffman MD Primary Care Provider [phone]- [phone] Allergies No known active allergies Medications ALPRAZolam [...] daily. 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 10/23/2017 Encounters Date Type Department Care Team Description 01/21/2025 External Device Data STL ABSTRACTION Provider, Abstract 01/07/2025 External Device Data STL ABSTRACTION Provider, Abstract 12/18/2024 External Device Data STL ABSTRACTION Provider, Abstract 12/17/2024 External Device Data STL ABSTRACTION Provider, Abstract 11/26/2024 External Device Data STL ABSTRACTION Provider, Abstract 11/05/2024 External Device Data STL ABSTRACTION Provider, [...] Comments Blood Pressure 147/84 07/22/2024 2:55 PM LUSTERER Pulse 62 07/22/2024 2:52 PM LUSTERER Temperature 36.4 C (97.5 F) 07/22/2024 2:52 PM LUSTERER Respiratory Rate 15 07/22/2024 2:52 PM LUSTERER Oxygen Saturation 94% 07/22/2024 2:52 PM LUSTERER Inhaled Oxygen Concentration - - Weight 72.9 kg (160 lb 12.8 oz) 07/22/2024 2:52 PM LUSTERER Height 174 cm (5' 8.5) 05/19/2021 2:00 PM LUSTERER Body Mass Index 24.09 05/19/2021 2:00 PM LUSTERER Plan of Treatment Upcoming Encounters Date Type Department Care Team (Late st Contact Info) Description 07/22/2025 3:30 PM LUSTERER Office Visit [facility] Oncology and Hematology - [address] [place] [id number] Linden Diaz MD [address] [facility] [address] [place] [address] Health Maintenance Due Date Last Done Comments DTAP/TDAP/TD VACCINES (1 - Tdap) 1959 PNEUMOCOCCAL VACCINE 50+ YEARS (1 of 2 - PCV) 11/02/18 58 ZOSTER VACCINE (1 of 2) 1957 OSTEOPOROSIS SCREENING 11/03/2003 RSV VACCINE (60+ or ) (1 - 1-dose 75+ series) 2013 INFLUENZA VACCINE (#1) 2025 Insurance [facility] Care Teams Slice Cutting Machine Operator Relationship Specialty Start Date End Date Geovanni Hoffman MD PCP - General Family Practice 10/23/17
--- OUTSIDE RECORDS SUMMARY | 2025-01-30 12:48 | XMS_ITS | Encounter Summary ---
Author Organization [facility] Address [address] [place] [address] Care Team Providers Care Corrective Therapy Aide Teacher Name Role Phone Geovanni Hoffman MD Primary Care Provider [phone]- [phone] Encounter Details Date Type Department Care Team ([facility] Contact Info) Description 03/28/2018 Chart Note [facility] Radiation Therapy [address] [place] [address] [place] [address] [place] [address] Social History Tobacco Use Types [...] (Late Contact Info) Description 07/22/2025 3:30 PM OVERLOCK WAISTLINE JOINER Office Visit [facility] Oncology and Hematology - Darius [address] [facility] [address] [place] [address] Linden Diaz MD [address] [facility] [address] [place] [address] documented as of this encounter Visit Diagnoses Not on filedocumented in this encounter Care Teams Corrective Therapy Aide Teacher Relationship Specialty Start Date End Date Geovanni Hoffman MD PCP - General Family Practice 10/23/17 documented as of this encounter
--- OUTSIDE RECORDS SUMMARY | 2025-01-30 12:48 | XMS_ITS | Encounter Summary ---
Author Organization [facility] Address [address] [place] [address] Care Team Providers Care Radiation Control Specialist Name Role Phone Geovanni Hoffman MD Primary Care Provider +1 -[phone] Encounter Details Date Type Department Care Team (Late st Contact Info) Description 01/08/2025 Telephone [facility] [address] [facility] 4th [address] [place] [address] Debbi Nunes RN Social History Tobacco Use Types Packs/Day Years Used Date Smoking Tobacco: Never Passive Smoke Exposure: Never Smokeless Tobacco: Never AUDIT-C Answer Date Recorded Q1: How often [...] on file Legal Sex 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 Never 01/10/2025 2:03 PM CDT Yohan Brewster RN Q2: How many drinks containing alcohol do you have on a typical day when you are drinking? Patient does not drink 01/10/2025 2:03 PM CDT Yohan Brewster RN Q3: How often do you have six or more drinks on one occasion? Never 01/10/2025 2:03 PM CDT Yohan Brewster RN documented as of this encounter Miscellaneous Notes * Telephone Encounter - Debbi Nunes RN - 01/08/2025 3:54 PM CDT Appt reminder call for 01/10/25 @ 1430. documented in this encounter Plan of Treatment Not on file documented as of this encounter Visit Diagnoses Not on filedocumented in this encounter Care Teams Radiation Control Specialist Relationship Specialty Start Date End Date Geovanni Hoffman MD [facility] [address] [address] PCP - General Family Medicine 11/26/24 documented as of this encounter
--- OUTSIDE RECORDS SUMMARY | 2025-01-30 12:48 | XMS_ITS | Encounter Summary ---
Author Organization [facility] Address [address] [facility] [place] [address] Care Team Providers Care Cable Machine Operator Name Role Phone Unavailable Primary Care Provider Unavailabl e Encounter Details Date Type Department Care Team (Latest Contact Info) Description 10/06/2017 Lab Requisition [facility] Care Pathology Lab [address] [place] [address] Ryder Yi MD [address] [place] [address] Other nonspecific lymphadenitis Social History [...] AM CDT) Case Report Flow Cytometry Case: [id number] Authorizing Provider: Ryder Yi MD Collected: 10/04/2017 11:57 AM Pathologist: Sharon Calvo MD Received: 10/06/2017 09:05 AM Specimen: Peritoneal Biopsy, RETROPERITONEAL MASS 10/06/2017 10:01 AM CDT [facility] Final Diagnosis Retroperitoneal mass, Flow cytometric immunophenotypic analysis: - [id number] mature B-cell lymphoma. - Paucicellular and reduced [...] the flow cytometry specimen is reviewed for manufacturing quality engineer purposes. The retroperitoneal biopsy is paucicellular and has reduced viability but shows involvement by a [id number] mature B-cell lymphoma. Correlation with clinical findings and the concurrent tissue biopsy ([facility]; [id number]) is required. These findings were discussed with Dr. Yamileth Yi at 1:55 p.m. On 10/05/[address] Dmitry Tapia. KR/DIAMOND SIZER/executive vp 10/06/2017 10:01 AM [facility] PATHOLOGY LAB Flow Cytometry Results Differential Result Comment Flow Cell Count /uL 320 Total Viability % 50.0 Lymphocytes % 80 Dim CD45 Region % 6 Monocytes % 4 Granulocytes % 5 10/06/2017 10:01 AM [facility] PATHOLOGY [facility] Reason for test Other nonspecific lymphadenitis 10/06/2017 10:01 AM [facility] PATHOLOGY LAB Client Specimen ID # [id number] 10/06/2017 10:01 AM [facility] PATHOLOG[facility] Number of markers 16 were performed. A Flow CD3 A Flow CD10 A Flow CD20 A Flow CD23 A Flow CD2 A Flow CD4 A Flow CD1a A Flow CD5 A Flow CD19 A Flow CD34 A Flow CD45 A Flow CD7 A Flow CD8 A Flow CD30 A [place]+CD19+ A Lambda+CD19+ 10/06/2017 10:01 AM [facility] PATHOLOGY LAB Disclaimer Test performed at [facility], [address] [place] [address], [id number]. *The established laboratory minimum viability is 70%. [...] complexity clinical testing. 10/06/2017 10:01 AM CDT [facility] PATHOLOGY LAB Embedded Images 10:01 AM CDT [facility] PATHOLOGY LAB Pathology/Cytolo gy PERITONEAL BIOPSY SPECIMEN / Unknown 10/04/2017 11:57 AM CDT 10/06/2017 9:05 AM CDT Ryder Yi MD LAB - PATHOLOGY/CYTOLOGY ORDER YANIV Final Result [facility] PATHOLOGY LAB [address] [phone] documented in this encounter Visit Diagnoses Diagnosis Other nonspecific lymphadenitis documented in this encounter
--- OUTSIDE RECORDS SUMMARY | 2025-01-30 12:48 | XMS_ITS | Encounter Summary ---
Author Organization [facility] Address [address] [facility] [place] [address] Care Team Providers Care Special Agent Fbi Name Role Phone Unavailable Primary Care Provider Unavailabl e Encounter Details Date Type Department Care Team (Late st Contact Info) Description 10/05/2017 Lab Requisition [facility] Care Pathology Lab [address] [place] [address] Ryder Yi MD [address] [place] [address] Social History Tobacco Use Types Packs/Day [...] CDT) Case Report Surgical Pathology Report Case: [id number] Authorizing Provider: Ryder Yi MD Collected: 10/04/2017 01:55 PM Pathologist: Sharon Calvo MD Received: 10/05/2017 01:56 PM Specimen: Soft Tissue Mass, OSC: [id number] 10/06/2017 10:26 AM CDT [facility] Final Diagnosis Retroperitoneal mass, needle core biopsy (OSC [id number], 10/04/17): - Follicular lymphoma, as sampled. - [...] A deeper H&E-stained level prepared in the [facility] Department of Pathology confirms these findings. Immunohistochemistry is performed in the [facility] Department of Pathology with appropriately reactive controls to further characterize the immunoarchitecture. The majority of lymphocytes are positive for CD20. The QK87-jsbrduyd B-lymphocytes are also positive for CD10 and BCL2. CD3 highlights background scattered T-lymphocytes. CD21 shows small follicular dendritic cell meshworks in the B-cell nodules. Concurrent flow cytometry ([id number]) shows a [id number] mature B-cell lymphoma. In summary, the retroperitoneal mass is involved by a tumor best classified as follicular lymphoma. In the needle core biopsy there is no significant centroblast population identified; however, in the context of a larger mass, an associated higher grade lymphoma cannot be excluded. Clinical correlation is required. SAUL/XAVI/xavi 10/06/2017 10:26 AM [facility] PATHOLOG[facility] Clinical History The patient is a 76 year old woman with low back pain. On imaging, a soft tissue mass was detected in the retroperitoneum. 10/06/2017 10:26 AM [facility] Materials Received Received are 2 slides and 1 block labeled as Mana Tolbert and [id number] along with a copy of the outside pathology report. [place] [address]. All materials are returned to the referring institution, along with a copy of our final report. 10/06/2017 10:26 AM [facility] Disclaimer The performance characteristics of all immunohistochemical and indirect immunofluorescence stains (if any) cited in this report were determined by the Histopathology Laboratory of [facility]. Some of these tests were [...] the attending (teaching) pathologist. 10/06/2017 10:26 AM [facility] Synoptic Report NON-HODGKIN LYMPHOMA/LYMPHOID [...] CD20, CD10, and BCL-2. 10/06/2017 10:26 AM [facility] Embedded Images 10/06/2017 10:26 AM [facility] Pathology/Cytolo gy SOFT TISSUE MASS / Unknown 10/04/2017 1:55 PM CDT 10/05/2017 1:56 PM CDT Ryder Yi MD LAB - PATHOLOGY/CYTOLOGY ORDER YANIV Final Result [facility] PATHOLOGY LAB [address] [phone] documented in this encounter Visit Diagnoses Not on filedocumented in this encounter
== END 2025-01-30 12:40 | disposition home or self-care (01) ==
PROVIDERS: PCP Family Medicine
DX: S72.22XA Displaced subtrochanteric fracture of left femur, initial encounter for closed fracture (principal); X58.XXXA Exposure to other specified factors, initial encounter; Z96.698 Presence of other orthopedic joint implants
CPT/HCPCS: 73552

== ENCOUNTER 2025-05-09 12:30 | Outpatient (RCR) | payer MEDICARE, SELFPAY ==
--- NOTE | 2025-02-13 08:57 | OPREHPOC ---
Outpatient Therapy Plan of Care This is a Multidisciplinary Plan of Care that may contain components documented by all disciplines (PT, OT, and ST.) PT Problem 1 PT Problem #1 Knowledge Deficit PT Goal 1 Goal / Goal Update Patient to demonstrate independence with HEP for improved self-reliance of symptom management. Target Visit 5 PT Problem 2 PT Problem #2 Pain PT Goal 1 Goal / Goal Update Patient to decrease subjective reports of pain to <3/10 for 2 consecutive weeks for improved ADL tolerance. Target Visit 10 PT Problem 3 PT Problem #3 Impaired Strength PT Goal 1 Goal / Goal Update 1. Patient to demonstrate L hip strength >=4-/5 for improved functional stability required for ADLs. 2. Patient to perform 5xSTS from 30 sec to 25 sec to demonstrate an increase in B LE functional strength. 3. The patient will have improvement on the L SLS balance test to >=5 sec for decreased fall risk and improved SL stability. Target Visit 10 PT Problem 4 PT Problem #4 Impaired Functional Mobility PT Goal 1 Goal / Goal Update 1. Patient to improve confidence and understanding of gait mechanics with 2WW to improve community navigation. 2. Patient to improve confidence and understanding of gait mechanics with SC to improve community navigation. 3. Patient to improve distance ambulated during 2MWT from 170 feet to 250 feet to demonstrate an improvement in ADL endurance. Target Visit 10
--- NOTE | 2025-02-13 08:57 | PTOPEVAL1 ---
Assessment and note entered by Raissa Vargas, PT Evaluation Information Assessment Status Evaluation ICD-10 Condition Codes (PT) Pain in left hip M25.552,Difficulty Walking R26.2 Subjective Information Primary Complaint: Difficulty Walking History of current condition: Pt fell in her driveway on November 30 and fractured her L hip. She has osteoporosis and was recently diagnosed with neuropathy. Pt was released from inpatient rehab on December 18 after a 2 week stay. She then had HH PT 3x/wk for about a month. She is currently using a 2WW but she previously denied the use of an AD> it was recommended her to use a SC due to her recent neuropathy diagnosis. CLOF: using walker, able to drive, tries to do light cleaning, using scooter at the grocery store PLOF: volunteer at the hospital, gardening, I with all ADLs, walks her dogs Reported Pain Level Pain Score 0: Self Report Additional Pain Score Comments dull ache in the thigh and lateral hip, sharp into the groin if she turns wrong Assessment PT Clinical Summary Pt is a 84 year old female who presents to physical therapy with a primary complaint of difficulty walking following a L femur fracture from a ground level fall. Pt demonstrates MIESHA LE weakness, L hip/thigh/groin pain, decreased mobility, decreased endurance, decreased safety, abnormal posture, gait deficit, and decreased flexibility that limit their ability to perform ADLs. Pt will benefit from skilled physical therapy to address the above listed deficits and return to PLOF and reduce fall risk. HEP instructed and written handout provided, EX tolerated well with no adverse effects to note post-session. Pt was educated on importance of adherence to HEP. Pt was also educated on anatomy, prognosis, home modalities, and PT POC. Plan of Care Interventions Aquatic Therapy,Electrical Stimulation,Gait Training,Hot Pack/Cold Pack,Manual Therapy,Neuro Re-education,Patient/Caregiver Education, Therapeutic Activities,Therapeutic Exercise,Self- Care/Home Management PT Services Indicated Yes Treatment Frequency and 2x/wk for 10 sessions Duration These treatments will address the objective and functional deficits as defined above. The patient will be advanced safely and appropriately in order for the patient to progress towards his/her prior level of function. Additional exercises will be introduced and as well as a comprehensive home exercise program upon discharge, if needed, ?to ensure carryover of functional gains achieved in the clinic. This treatment plan has been reviewed and agreement upon by the patient.
--- NOTE | 2025-04-02 13:43 | PTOPPROG ---
Assessment and note entered by Zac Conte, PT Evaluation Information Assessment Status Progress ICD-10 Condition Codes (PT) Pain in left hip M25.552,Difficulty Walking R26.2 Subjective Information Pt states she felt she was making progress with physical therapy but then had to take some time off due to a L foot sore that she saw podiatry for . Additionally, she feels like the weather changing making her more achy and less steady on her feet. Pt states she primarily just uses her cane for mobility but feels she lacks strength and endurance. Pt states she would like to continue therapy to reduce pain and improve her strength and endurance. Assessment PT Clinical Summary Patient's L hip has improved overall as evidenced by decreased symptoms and increased mobility, strength, and overall functional use of the lower extremity. However, many functional limitations are still present. Such as decreased gait speed, LE strength, and decreased balance/stability making an increased risk for falls. Patient would benefit from continued skilled physical therapy services to address the above listed impairments and facilitate a return to their prior level of function. Plan of Care Interventions Aquatic Therapy,Electrical Stimulation,Gait Training,Hot Pack/Cold Pack,Manual Therapy,Neuro Re-education,Patient/Caregiver Education, Therapeutic Activities,Therapeutic Exercise,Self- Care/Home Management PT Services Indicated Yes Treatment Frequency and 2x week 10 visits Duration These treatments will address the objective and functional deficits as defined above. The patient will be advanced safely and appropriately in order for the patient to progress towards his/her prior level of function. Additional exercises will be introduced and as well as a comprehensive home exercise program upon discharge, if needed, ?to ensure carryover of functional gains achieved in the clinic. This treatment plan has been reviewed and agreement upon by the patient.
--- NOTE | 2025-04-18 15:32 | PCPTNOTE ---
Patient called to cancel due to illness.
== END 2025-05-14 23:59 | disposition home or self-care (01) ==
LOC: ANHGOSHPT 12:30
PROVIDERS: PCP Family Medicine; Visit Provider Family Medicine
DX: M80.052A Age-related osteoporosis with current pathological fracture, left femur, initial encounter for fracture (principal)
CPT/HCPCS: 97110; 97112; 97116; 97161; 97530; 97750